=== PATIENT | female | born 1990 | race Caucasian/White ===

== ENCOUNTER 2021-10-18 09:34 | Outpatient (CLI) | payer MEDICAID, SELFPAY ==
[2021-10-18 15:53] LABS: Basophils Absolute Auto 0.04 K/uL (0.00-0.30); Basophils Percent Auto 0.6 % (0.0-3.0); Eosinophils Absolute Auto 0.14 K/uL (0.00-0.50); Eosinophils Percent Auto 2.1 % (0.0-7.0); Hematocrit 43.6 % (33.0-51.0); Hemoglobin* 14.4 gm/dL (12.0-16.0); Lymphocytes Absolute Auto 2.21 K/uL (0.90-2.90); Lymphocytes Percent Auto 32.7 % (20-44); Mean Corpuscular HGB Conc 33 gm/dL (32-36); Mean Corpuscular Hemoglobin 30 pg (26-34); Mean Corpuscular Volume 92 fL (80-100); Monocytes Percent Auto 8.3 % (0.0-11.0); Neutrophils Absolute Auto 3.81 K/uL (1.7-7.0); Neutrophils Percent Auto 56.3 % (42.0-72.0); Platelet Count* 235 K/uL (140-440); RDW Coefficient of Variation % 12.3 % (11.5-15.5); Red Blood Count 4.74 m/uL (4.00-5.20); White Blood Count* 6.76 K/uL (4.50-11.00)
[2021-10-18 15:59] LABS: Albumin* 4.2 g/dL (3.3-5.0)
[2021-10-18 16:00] LABS: Chloride* 104 mmol/L (96-114)
[2021-10-18 16:01] LABS: Potassium* 4.5 mmol/L (3.6-5.1); Sodium* 136 mmol/L (135-149)
[2021-10-18 16:02] LABS: Amylase* 68 U/L (18-89); Bilirubin Total* 0.2 mg/dL (0.1-1.5); Carbon Dioxide* 26 mmol/L (20-32); Creatinine* 0.6 mg/dL (0.5-1.5); Estimated Glomerular Filt Rate 124 ml/min
[2021-10-18 16:03] LABS: Alanine Aminotransferase* 19 U/L (4-35); Alkaline Phosphatase* 62 U/L (40-150); Aspartate Amino Transferase* 21 U/L (12-35); Blood Urea Nitrogen* 18 mg/dL (5-24); Calcium* 9.1 mg/dL (8.4-10.6); Glucose* 95 mg/dL (60-115); Lipase* 79 U/L (23-300)
[2021-10-18 16:12] LABS: Slide Review Reflex No
== END 2021-10-18 09:35 | disposition home or self-care (01) ==
PROVIDERS: PCP Nurse Practitioner Family; Visit Provider Nurse Practitioner Family
DX: R10.11 Right upper quadrant pain (principal)
CPT/HCPCS: 36415; 80053; 82150; 83690; 85025

== ENCOUNTER 2021-11-07 09:27 | Outpatient (CLI) | payer MEDICAID, SELFPAY ==
--- OUTSIDE RECORDS SUMMARY | 2021-11-07 09:30 | XMS_ITS | Encounter Summary ---
:1990 Author Organization [place] Address [address] [place] [address] Care Team Providers Name Role Phone Lindsay Braxton MD Primary Care Provider [phone] Tayla Mondragon RN ANGIOGRAPHY Unavailable Encounter Details Date Type Department Care Team Description 11/10/2017 E-Visit [facility] Lindsay Braxton (Primary Clinic Cullen Aguilar MD Dx) [address] [facility] [address] [place], [place] [address] [phone] Social History Tobacco Use Types Packs/Day Years Used Date Never Smoker Smokeless Tobacco: Never Used Alcohol Use Standard Drinks/Week Comments Yes 0 (1 standard drink = 0.6 oz pure alcoho l) Sex Assigned at Date Recorded Not on file documented as of this encounter Plan of Treatment Not on filedocumented as of this encounter Visit Diagnoses Diagnosis Lightheadedness - Primary Dizziness and giddiness documented in this encounter Care Teams Chemistry Account Manager Relationship Specialty Start Date End Date Lindsay Braxton MD PCP - General Family Practice 02/25/17 [address] [place], [place] [id number] Tayla Mondragon NP PCP - Assigned PCP 03/01/17 02/27/18 [facility] [address] [place] [address] documented as of this encounter
--- OUTSIDE RECORDS SUMMARY | 2021-11-07 09:30 | XMS_ITS | Encounter Summary ---
:1990 Author Organization [place] Address [address] [place] [address] Care Team Providers Name Role Phone Lindsay Braxton MD Primary Care Provider [phone] Tayla Mondragon CUSTODIAL AIDE Unavailable Reason for Visit JOSE Physical Therapy - Closed Specialty Diagnoses / Procedures Referred By Contact Refer red To Contact Diagnoses Bilateral carpal tunnel syndrome Rodrigo Kirby DO [facility] [address] [facility] [address] [place] [address] Referral ID Status Reason Start Date Expiration Date Visits Requ ested Visits Authorized [id number] Closed 10/28/2017 03/29/2018 40 38 Encounter Details Date Type Department Care Team Description 11/27/2017 Therapy Visit [facility] Barbara Love Bilate ral hand pain; Rehabilitation Services OT Bilateral carpal tunnel syndrome [facility] [address] [facility] [address] [address] [place], [place] [address] [address] [place] [address] [phone] Social History Tobacco Use Types Packs/Day Years Used Date Never Smoker Smokeless Tobacco: Never Used Alcohol Use Standard Drinks/Week Comments Yes 0 (1 standard drink = 0.6 oz pure alcoho l) Sex Assigned at Date Recorded Not on file documented as of this encounter Plan of Treatment Not on filedocumented as of this encounter Procedures Procedure Name Priority Date/Time Associated Diagnosis Comme nts ZZC MANUAL THER Routine 11/27/2017 9:12 AM Bilateral phillips d pain TECH,1+REGIONS,EA 15 MIN CDT Bilateral carpal tunnel syndrome ZC NEUROMUSCULAR Routine 11/27/2017 9:12 AM Bilateral h and pain RE-EDUCATION CDT Bilateral carpal tunnel syndrome documented in this encounter Visit Diagnoses Diagnosis Bilateral hand pain Pain in limb Bilateral carpal tunnel syndrome Carpal tunnel syndrome documented in this encounter Care Teams Material Disposition Inspector Relationship Specialty Start Date End Date Lindsay Braxton MD PCP - General Family Practice 02/25/17 [address] [facility] [place] [address] Tayla Mondragon NP PCP - Assigned PCP 03/01/17 02/27/18 [facility] [address] [place] [address] documented as of this encounter
--- OUTSIDE RECORDS SUMMARY | 2021-11-07 09:30 | XMS_ITS | Clinical Summary ---
:1990 Author Organization [place] Address [address] [place] [address] Care Team Providers Name Role Phone Lindsay Braxton MD Primary Care Provider [phone] Allergies No known active allergies Medications Medication Sig Dispensed Refills Start Date End Date Status Multiple Take 1 tablet by 0 Act kota Vitamins-Minerals mouth daily (MULTIVITAMIN PO)Indications: Cat bite of hand, right, initial encounter levonorgestrel 1 each (20 mcg) by 1 each 0 10/01/2016 Active (MIRENA) 20 MCG/24HR Intrauterine route IUDIndications: once for 1 dose Finger injury, right, Placed in 2016 initial encounter vitamin B complex Take 1 tablet by 0 Active with vitamin C mouth daily (STRESS TAB) TABS tablet venlafaxine Take 1 capsule 90 capsule 3 10/06/2017 A ctive (EFFEXOR-XR) 150 MG (150 mg) by mouth 24 hr capsule daily Active Problems Problem Noted Date Cystic acne 01/02/2016 Resolved Problems Problem Noted Date Resolved Date Bilateral carpal tunnel syndrome 11/04/2017 019 Bilateral hand pain 11/04/2017 08/30/2018 Pain of finger of right hand 11/28/2016 01/12/2017 Finger stiffness, right 11/28/2016 01/12/2017 Unspecified injury of right wrist, hand and finger(s), 11/2801/12/2017 subsequent encounter Immunizations Name Administration Dates Next Due TD (ADULT, 7+) 03/15/2015 Family History Relation Status Comments Father Alive Mother Alive Social History Tobacco Use Types Packs/Day Years Used Date Never Smoker Smokeless Tobacco: Never Used Alcohol Use Standard Drinks/Week Comments Yes 0 (1 standard drink = 0.6 oz pure alcoho l) Sex Assigned at Date Recorded Not on file Last Filed Vital Signs Vital Sign Reading Time Taken Comments Blood Pressure 112/72 10/28/2017 9:11 AM CDT Pulse 71 10/06/2017 8:15 AM CDT Temperature 37 ??C (98.6 ??F) 10/06/2017 8:15 AM CDT Respiratory Rate 16 10/06/2017 8:15 AM CDT Oxygen Saturation 97% 10/06/2017 8:15 AM CDT Inhaled Oxygen Concentration - - Weight 77.1 kg (170 lb) 10/28/2017 9:11 AM CDT Height 167.6 cm (5' 6) 10/28/2017 9:11 AM CDT Body Mass Index 27.44 10/28/2017 9:11 AM CDT Plan of Treatment Health Maintenance Due Date Last Done Comments ADVANCE CARE PLANNING 1990 ANNUAL REVIEW OF HM ORDERS 1990 COVID-19 Vaccine (#1) 06/16/1991 HIV SCREENING 2005 HEPATITIS C SCREENING 2008 PREVENTIVE CARE VISIT 01/01/2017 01/02/2016 PAP 10/16/2018 10/17/2015 PHQ-2 (once per calendar 03/30/2021 10/06/2017, year) 02/06/2017, 01/02/2016 INFLUENZA VACCINE (#1) 2021 DTAP/TDAP/TD IMMUNIZATION (2 03/15/2025 03/15/2015, - Td or Tdap) 03/15/2015 HEPATITIS B IMMUNIZATION Aged Out No long er eligible based on patient's age to complete this to pic IPV IMMUNIZATION Aged Out No longer eligi ble based on patient's age to complete this to pic MENINGITIS IMMUNIZATION Aged Out No longe r eligible based on patient's age to complete this to pic Pneumococcal Vaccine: Aged Out No longer eligible based Pediatrics (0 to 5 Years) and on patient's age to At-Risk Patients (6 to 64 comple te this topic Years) Insurance Payer Benefit Plan / Subscriber ID Effective Phone Address T ype Group Dates 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 [id number] 2015-Pre [address] sent [id number] [place] [address] BCBS BCBS OF [place] [id number] 2017-Prese [phone] [address] [place] [id number] [address] [place] [address] [phone] none (Work) [place] [id number] Claudia Benoit Worker's Self 1990 [phone] [address] [phone] [address] [place] 8 (Work) [address] [id number] Worker's Employer 1990 [phone] [address] [phone] J[place]ICE [place]IMA 8 (Work) [phone] Care Teams Manager Solution Relationship Specialty Start Date End Date Lindsay Braxton MD PCP - General Family Practice 02/25/17 [address] [address] [place], [place] [id number]
--- OUTSIDE RECORDS SUMMARY | 2021-11-07 09:30 | XMS_ITS | Encounter Summary ---
:1990 Author Organization [place] Address [address] [place] [address] Care Team Providers Name Role Phone Lindsay Braxton MD Primary Care Provider [phone] Tayla Mondragon DEBONER Unavailable Lindsay Braxton MD Unavailable Lindsay Braxton MD Unavailable Reason for Visit JOSE Physical Therapy - Closed Specialty Diagnoses / Procedures Referred By Contact Refer red To Contact Diagnoses Bilateral carpal tunnel syndrome Rodrigo Kirby DO [facility] [address] [facility] [address] [place] [address] Referral ID Status Reason Start Date Expiration Date Visits Requ ested Visits Authorized [id number] Closed 10/28/2017 03/29/2018 40 38 Encounter Details Date Type Department Care Team Description 12/02/2017 Therapy Visit [facility] Miko, Bilateral carpal tunnel syndrome (Primary Dx); Rehabilitation Services LIBERTY Jones Bilateral hand pain [facility] [place] [id number] [facility] [address] [facility] [address] [place], [place] [address] [address] [phone] Social History Tobacco Use Types Packs/Day Years Used Date Never Smoker Smokeless Tobacco: Never Used Alcohol Use Standard Drinks/Week Comments Yes 0 (1 standard drink = 0.6 oz pure alcoho l) Sex Assigned at Date Recorded Not on file documented as of this encounter Progress Notes Shalini Crouch OTR - 12/02/2017 10:00 AM CDT Discharge Summary - Hand Therapy Patient did not return to therapy. We will assume that patient's goals were met. D/C from hand therapy. documented in this encounter Plan of Treatment Not on filedocumented as of this encounter Procedures Procedure Name Priority Date/Time Associated Diagnosis Comme nts ZZC MANUAL THER Routine 12/02/2017 10:50 AM Bilateral carpal TECH,1+REGIONS,EA 15 MIN CDT tunnel syndrome Bilateral hand pain ZZC NEUROMUSCULAR Routine 12/02/2017 10:50 AM Bilateral carpal RE-EDUCATION CDT tunnel syndrome Bilateral hand pain ZZC THERAPEUTIC EXERCISES Routine 12/02/2017 10:50 AM Bilatera l carpal CDT tunnel syndrome Bilateral hand pain documented in this encounter Visit Diagnoses Diagnosis Bilateral carpal tunnel syndrome - Prima ry Carpal tunnel syndrome Bilateral hand pain Pain in limb documented in this encounter Care Teams Dermatologist Relationship Specialty Start Date End Date Lindsay Braxton MD PCP - General Family Practice 02/25/17 [address] [place] [address] Tayla Mondragon, SAL PCP - Assigned PCP 03/01/17 02/27/18 [facility] [address] [place] [address] Lindsay Braxton MD PCP - Assigned PCP 02/28/18 06/01/18 [address] [place] [address] Lindsay Braxton MD Assigned PCP 02/14/18 10/11/20 [address] [place] [address] documented as of this encounter
--- OUTSIDE RECORDS SUMMARY | 2021-11-07 09:30 | XMS_ITS | Encounter Summary ---
:1990 Author Organization [place] Address [address] [place] [address] Care Team Providers Name Role Phone Lindsay Braxton MD Primary Care Provider [phone] Tayla Mondragon SKY CAP Unavailable Reason for Visit JOSE Physical Therapy - Closed Specialty Diagnoses / Procedures Referred By Contact Refer red To Contact Diagnoses Bilateral carpal tunnel syndrome Rodrigo Kirby DO [facility] [id number] [place] [address] Referral ID Status Reason Start Date Expiration Date Visits Requ ested Visits Authorized [id number] Closed 10/28/2017 03/29/2018 40 38 Encounter Details Date Type Department Care Team Description 11/18/[address] [facility] Miko, Bilateral carpal tunnel syndrome (Primary Dx); Rehabilitation Services LIBERTY Jones Bilateral hand pain [facility] [address] [address] [place] [address] [phone] Social History Tobacco Use Types Packs/Day Years Used Date Never Smoker Smokeless Tobacco: Never Used Alcohol Use Standard Drinks/Week Comments Yes 0 (1 standard drink = 0.6 oz pure alcoho l) Sex Assigned at Date Recorded Not on file documented as of this encounter Progress Notes Shalini Crouch OTR - 11/18/2017 2:00 PM CDT SOAP note objective information for 11/18/2017. Please refer to the daily flowsheet for treatment today, total treatment time and time spent performing 1:1 timed codes.? Special Tests Nerve entrapment: Pain Report: - none + mild ++ moderate +++ severe Date 11/18/2017 Side R L Proximal Terrell Test: Pt Position: Goal Post position; Fist slowly for 2-3 minutes [address] a downward pressure on the scapula Increased Paresthesias No change to paraesthesias Cyriax Release Test Decreased Paresthesias No change to paraesthesias documented in this encounter Plan of Treatment Not on filedocumented as of this encounter Procedures Procedure Name Priority Date/Time Associated Diagnosis Comme nts ZC MANUAL THER Routine 11/18/2017 3:09 PM Bilateral carpal TECH,1+REGIONS,EA 15 MIN CDT tunnel syndrome Bilateral hand pain ZZC NEUROMUSCULAR Routine 11/18/2017 3:09 PM Bilateral carpal RE-EDUCATION CDT tunnel syndrome Bilateral hand pain ZZC THERAPEUTIC EXERCISES Routine 11/18/2017 3:09 PM Bilateral carpal CDT tunnel syndrome Bilateral hand pain documented in this encounter Visit Diagnoses Diagnosis Bilateral carpal tunnel syndrome - Prima ry Carpal tunnel syndrome Bilateral hand pain Pain in limb documented in this encounter Care Teams Pcts Relationship Specialty Start Date End Date Lindsay Braxton MD PCP - General Family Practice 02/25/17 [address] [place] [address] Tayla Mondragon NP PCP - Assigned PCP 03/01/17 02/27/18 [facility] [address] [place] [address] documented as of this encounter
--- OUTSIDE RECORDS SUMMARY | 2021-11-07 09:31 | XMS_ITS | Encounter Summary ---
:1990 Author Organization [place] Address [facility] [place] [address] Care Team Providers Name Role Phone Lindsay Braxton MD Primary Care Provider [phone] Tayla Mondragon COKE DRAWER HAND Unavailable Reason for Visit Reason Comments Elbow right Encounter Details Date Type Department Care Team Description 10/06/2017 Office Visit [facility] Tayla Mondragon, Elbow pain, right (Primary Dx); [facility] COKE DRAWER HAND Cervicalgia [address] [facility] [address] [phone] [place] [address] Social History Tobacco Use Types Packs/Day Years Used Date Never Smoker Smokeless Tobacco: Never Used Alcohol Use Standard Drinks/Week Comments Yes 0 (1 standard drink = 0.6 oz pure alcoho l) Sex Assigned at Date Recorded Not on file documented as of this encounter Last Filed Vital Signs Vital Sign Reading Time Taken Comments Blood Pressure 126/80 10/06/2017 8:15 AM CDT Pulse 71 10/06/2017 8:15 AM CDT Temperature 37 ??C (98.6 ??F) 10/06/2017 8:15 AM CDT Respiratory Rate 16 10/06/2017 8:15 AM CDT Oxygen Saturation 97% 10/06/2017 8:15 AM CDT Inhaled Oxygen Concentration - - Weight 81.2 kg (179 lb) 10/06/2017 8:15 AM CDT Height 167.6 cm (5' 6) 10/06/2017 8:15 AM CDT Body Mass Index 28.89 10/06/2017 8:15 AM CDT documented in this encounter Progress Notes Tayla Mondragon, COKE DRAWER HAND - 10/06/2017 8:15 AM CDT SUBJECTIVE: Claudia Benoit is a 26 year old female who presents to clinic today for the following health issues: Musculoskeletal problem/pain-right elbow ?? Duration: x 2 days ?? Description Location: right elbow ?? Intensity: moderate ?? Accompanying signs and symptoms: up her right arm into her shoulder, some swelling ?? History Previous similar problem: no Previous evaluation: none ?? Precipitating or alleviating factors: Trauma or overuse: YES- pt fell Aggravating factors include: lifting, exercise and overuse ?? Therapies tried and outcome: ice and ibuprofen and Tylenol and SONAL bandage Patient is here with complaints of right elbow pain for the past 2 days. Fell and noticed significant swelling and tenderness and is concerned about possible fracture. 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 Right-handed. Has been using ice and ibuprofen. Complaints of cervical neck pain with bilateral arm numbness that is intermittent. Has had an MRI inthe past which was unremarkable. Numbness is worse when arms are above her head and when sleeping. Prefers to use chiropractic and will be going there later this week. Problem list and histories reviewed & adjusted, as indicated. Additional history: none Patient Active Problem List Diagnosis ??? Cystic acne History reviewed. No pertinent surgical history. Social History Substance Use Topics ??? Smoking status: Never Smoker ??? Smokeless tobacco: Never Used ??? Alcohol use 0.0 oz/week 0 Standard drinks or equivalent per week History reviewed. No pertinent family history. Reviewed and updated as needed this visit by clinical staff Tobacco Allergies Meds Problems Med Hx Surg Hx Fam Hx Soc Hx Reviewed and updated as needed this visit by Provider Allergies Meds Problems Med Hx Surg Hx Fam Hx ROS: Constitutional, HEENT, cardiovascular, pulmonary, gi and gu systems are negative, except as otherwise noted. OBJECTIVE: BP 126/80 (BP Location: Left arm, Patient Position: Chair, Cuff Size: Adult Regular) Pulse 71 Temp 98.6 ??F (37 ??C) (Oral) Resp 16 Ht 5' 6 (1.676 m) Wt 179 lb (81.2 kg) SpO2 97% ? No BMI 28.89 kg/m2 Body mass index is 28.89 kg/(m^2). GENERAL: healthy, alert and no distress MS: Right elbow swelling and slight tenderness. Good rn progressive care strength. Slight bruising noted. SKIN: no suspicious lesions or rashes PSYCH: mentation appears normal, affect normal/bright ASSESSMENT/PLAN: 1. Elbow pain, right Xray is negative for fracture. Encourage patient to continue with icing, rest, ibuprofen. Advised that swelling may persist for up to several weeks. If no improvement may benefit from referral to physical therapy. 2. Cervicalgia Patient will be visiting with the chiropractor later on this week. If symptoms do not improve, referral to orthopedics. Tayla Mondragon NP [facility] documented in this encounter Plan of Treatment Not on filedocumented as of this encounter Visit Diagnoses Diagnosis Elbow pain, right - Primary Pain in joint, upper arm Cervicalgia documented in this encounter Care Teams Health Club Manager Relationship Specialty Start Date End Date Lindsay Braxton MD PCP - General Family Practice 02/25/17 [address] [place] [address] Tayla Mondragon NP PCP - Assigned PCP 03/01/17 02/27/18 [facility] [address] [place] [address] documented as of this encounter
--- OUTSIDE RECORDS SUMMARY | 2021-11-07 09:31 | XMS_ITS | Encounter Summary ---
:1990 Author Organization [place] Address [address] [place] [address]. [place] [address] Care Team Providers Name Role Phone Unavailable Primary Care Provider Unavailable Reason for Visit Reason Comments Musculoskeletal Problem Encounter Details Date Type Department Care Team Description 10/01/[address] [facility] Lindsay Braxton Finger injury, right, Clinic Cullen Aguilar MD initial encounter [address] [facility] [address] [facility] (Primary Dx) [place], [place] [address] [phone] Social History Tobacco Use Types Packs/Day Years Used Date Never Smoker Smokeless Tobacco: Never Used Alcohol Use Standard Drinks/Week Comments Yes 0 (1 standard drink = 0.6 oz pure alcoho l) Sex Assigned at Date Recorded Not on file documented as of this encounter Last Filed Vital Signs Vital Sign Reading Time Taken Comments Blood Pressure 128/82 10/01/2016 9:52 AM CDT Pulse 75 10/01/2016 9:52 AM CDT Temperature 36.7 ??C (98 ??F) 10/01/2016 9:52 AM CDT Respiratory Rate - - Oxygen Saturation - - Inhaled Oxygen Concentration - - Weight 74.4 kg (164 lb) 10/01/2016 9:52 AM CDT Height 168.3 cm (5' 6.25) 10/01/2016 9:52 AM CDT Body Mass Index 26.27 10/01/2016 9:52 AM CDT documented in this encounter Progress Notes Lindsay Braxton MD - 10/01/2016 9:45 AM CDT SUBJECTIVE: Claudia Benoit is a 25 year old female who presents to clinic today for the following health issues: Finger injury ?? Duration: one day ?? Description (location/character/radiation): 5th finger right hand ?? Intensity: 8/10 ?? Accompanying signs and symptoms: swelling ?? History (similar episodes/previous evaluation): None ?? Precipitating or alleviating factors: hurts to move it ?? Therapies tried and outcome: ice and tape Was doing hand stand, fell down. Unsure if she over-extended or jammed. No previous finger injuries. Problem list and histories reviewed & adjusted, [...] as needed this visit by clinical staff Reviewed and updated as needed this visit by Provider ROS: Constitutional, HEENT, cardiovascular, pulmonary, gi and gu systems are negative, except as otherwise noted. OBJECTIVE: BP 128/82 (BP Location: Right arm, Patient Position: Sitting, Cuff Size: Adult Regular) Pulse 75 Temp 98 ??F (36.7 ??C) (Oral) Ht 5' 6.25 (1.683 m) Wt 164 lb (74.4 kg) ? No BMI 26.27 kg/m2 Body mass index is 26.27 kg/(m^2). GENERAL: healthy, alert and no distress MS: swelling of the 5th digit, right hand, no bruising, ttp over the PIP-IPJ, unable to fully flex the digit due to swelling Diagnostic Test Results: Finger XR - Negative for fracture ASSESSMENT/PLAN: 1. Finger injury, right, initial encounter - no fracture, discussed conservative treatment for now, finger splinting, gentle ROM BID, NSAIDs, ice. Call if finger fails to improve in 1 week - XR Finger Right G/E 2 Views; Future Lindsay Braxton MD [facility] documented in this encounter Nursing Notes Vic Ortez, FREDDIE - 10/01/2016 9:45 AM CDT Chief Complaint Patient presents with ??? Musculoskeletal Problem Initial BP 128/82 (BP Location: Right arm, Patient Position: Sitting, Cuff Size: Adult Regular) Pulse 75 Temp 98 ??F (36.7 ??C) (Oral) Ht 5' 6.25 (1.683 m) Wt 164 lb (74.4 kg) ?No BMI 26.27 kg/m2 Estimated body mass index is 26.27 kg/(m^2) as calculated from the following: Height as of this encounter: 5' 6.25 (1.683 m). Weight as of this encounter: 164 lb (74.4 kg). Medication Reconciliation: maisha Ortez CMA documented in this encounter Plan of Treatment Not on filedocumented as of this encounter Results XR Finger Right G/E 2 Views (10/01/2016 10:21 AM CDT) Anatomical Region Laterality Modality Right Hand Right Computed Radiography Specimen (Source) Anatomical Location Collection Method / Collectio n Time Received Time / Laterality Volume Impressions 10/01/2016 12:07 PM CDT IMPRESSION: ??3 views of the little finger. Negative. ?? LAURENCE TRAN MD Narrative 10/01/2016 12:07 PM CDT XR FINGER RT G/E 2 VW ??10/01/2016 10:21 AM HISTORY: ??Unspecified injury of right w rist, hand and finger(s), initial encounter COMPARISON: ??None. Procedure Note Laurence Tran MD - 7 XR FINGER RT G/E 2 VW 10/01/2016 10:21 AM HISTORY: Unspecified injury of right wri st, hand and finger(s), initial encounter COMPARISON: None. IMPRESSION: 3 views of the little finger . Negative. LAURENCE TRAN MD Lindsay Braxton MD IMG DIAGNOSTIC IMAGING ORDER VELMA documented in this encounter Visit Diagnoses Diagnosis Finger injury, right, initial encounter - Primary Finger injury, right, initial encounter documented in this encounter
--- OUTSIDE RECORDS SUMMARY | 2021-11-07 09:31 | XMS_ITS | Encounter Summary ---
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 Reason for Visit Reason Comments Ankle Pain Encounter Details Date Type Department Care Team Description 08/29/2017 Emergency [facility] Darwin Chan MD Acute left ankle pain [facility] Emergency Dep t [facility] [address] [place], [place] [address] [id number] [place] [address] [place] [address] (Wo rk) Social History Tobacco Use Types Packs/Day Years Used Date Never Smoker Smokeless Tobacco: Never Used Alcohol Use Standard Drinks/Week Comments Yes 0 (1 standard drink = 0.6 oz pure alcoho l) Sex Assigned at Date Recorded Not on file documented as of this encounter Last Filed Vital Signs Vital Sign Reading Time Taken Comments Blood Pressure 129/91 08/29/2017 12:10 PM CDT Pulse 70 08/29/2017 12:10 PM CDT Temperature 35.9 ??C (96.6 ??F) 08/29/2017 12:10 PM CDT Respiratory Rate 18 08/29/2017 12:10 PM CDT Oxygen Saturation 99% 08/29/2017 12:10 PM CDT Inhaled Oxygen Concentration - - Weight 79.4 kg (175 lb) 08/29/2017 12:10 PM CDT Height 167.6 cm (5' 6) 08/29/2017 12:10 PM CDT Body Mass Index 28.25 08/29/2017 12:10 PM CDT documented in this encounter Medications at Time of Discharge Medication Sig Dispensed Refills Start Date End Date levonorgestrel (MIRENA) 1 each (20 mcg) by 1 each 0 07/2016 20 MCG/24HR Intrauterine route IUDIndications: Finger once for 1 dose injury, right, initial Placed in 2016 encounter Multiple Take 1 tablet by 0 Vitamins-Minerals mouth daily (MULTIVITAMIN PO)Indications: Cat bite of hand, right, initial encounter vitamin B complex with Take 1 tablet by 0 vitamin C (STRESS TAB) mouth daily TABS tablet albuterol (PROAIR HFA) Inhale 2 puffs into 1 Inhaler 0 03/3110/06/2017 108 (90 BASE) MCG/ACT the lungs every 4 Inhaler hours as needed for shortness of breath / dyspnea order for Wrist brace with 2 Package 0 02/06/2017 10/07/19 18 DMEIndications: thumb Bilateral carpal tunnel syndrome sertraline (ZOLOFT) 100 TAKE 2 TABLETS BY 1 01/2810/06/2017 MG tablet MOUTH ONCE DAILY XIIDRA 5 % SOLN INSTILL 1 DROP IN 5 01/28/2017 BOTH EYES TWICE DAILY documented as of this encounter ED Notes Corina Ontiveros RN - 08/29/2017 12:12 PM CDT Pt presents with having a hx of left ankle trauma in 2006 and had hardware placed. Today pt was walking and experienced sudden left lateral ankle pain. Pt noted a tiny red spot and skin seemed to be retracting inward. Pt is A&O, ABC's intact. Germain Chan MD - 08/29/2017 12:04 PM CDT History Chief Complaint: Ankle pain HPI Claudia Benoit is a 26 year old female with a history of left ankle surgery who presents with ankle pain. The patient reports that while walking at work this morning, she felt a sudden pain in her left lateral ankle. She describes that the skin feels like it is stuck on the hardware that was placed when she had surgery, and she cannot move the ankle. She denies having any recent ankle injury. Allergies: No known drug allergies Medications: Albuterol Mirena Zoloft Xiidra Past Medical History: The patient does not have any past pertinent medical history. Past Surgical History: Left ankle surgery Family History: History reviewed. No pertinent family history. Social History: Smoking status: Never smoker Alcohol use: No Marital Status: Single [1] Review of Systems Musculoskeletal: Positive for arthralgias (Left ankle). All other systems reviewed and are negative. Physical Exam Patient Vitals for the past 24 hrs: BP Temp Temp src Pulse Resp SpO2 Height Weight 08/29/17 1210 (!) 129/91 96.6 ??F (35.9 ??C) Oral 70 18 99 % 1.676 m (5' 6) 79.4 kg (175 lb) Physical Exam Vital signs and nursing notes reviewed. Constitutional: laying on gurney appears comfortable HENT: No evidence of facial or head injury. Eyes: Conjunctivae are normal bilaterally. Pupils equal Neck: normal range of motion Cardiovascular: Normal rate. Pulmonary/Chest: No respiratory distress. Musculoskeletal: Some limitation due to pain with dorsiflexion and plantar flexion ankle because itpulls on the skin and causes pain, but there is no joint swelling or other concerning findings. Neurological: Alert and oriented. No focal weakness Skin: Area of puckering in the skin near her discomfort at the left lateral malleolus. No overlying erythema, redness, or swelling. Skin is warm and dry. No rash noted. Psych: normal affect Vital signs and nursing notes reviewed. Emergency Department Course Imaging: Radiographic findings were communicated with the patient who voiced understanding of the findings. XR Ankle Left G/E 3 Views: No evidence for recent fracture, dislocation or significant degenerative change of the left ankle . As read by Radiology. Interventions: 1% lidocaine with epinephrine injection Emergency Department Course: Past medical records, nursing notes, and vitals reviewed. 1215: I performed an exam of the patient and obtained history, as documented above. The patient was sent for a left ankle x-ray while in the emergency department, findings above. 1341: I rechecked the patient. Explained findings to the patient. I anesthetized the area and pulledthe trapped skin out. No puckering visible. Findings and plan explained to the patient. Patient discharged home with instructions regarding supportive care, medications, and reasons to return. The importance of close follow-up was reviewed. Impression & Plan Medical Decision Making: Claudia Benoit is a 26 year old female who presents with left lateral ankle pain. Patient noted that her skin is puckering over the outer aspect of her ankle and it feels like something is trapped under the skin and her hardware. I did obtain an x-ray, and the hardware appeared to be in good position. I agreed that it seemed like she had some soft tissue that was trapped somewhere near her surgical hardware. I anesthetized the area with local lidocaine with epi. I was able to pull and manipulate the skin when it popped and skin released with the skin puckering no longer visible. I discussed with her about her follow up with orthopedics as it is unclear if this is going to continue to be happening, and if she is having continued problems with the hardware she may need it removed. I discussed thiswith her and she will follow up with as an outpatient and was discharged in good condition. Diagnosis: ICD-10-CM 1. Acute left ankle pain M25.572 overlying skin entraped in surgical hardware Disposition: discharged to home Jamil Shani 08/29/2017 [facility] EM[facility]GENCY [facility] I, Jamil Mcleod, am serving as a scribe at 12:15 PM on 08/29/2017 to document services personally performed by Germain Chan MD based on my observations and the provider's statements to me. Germain Chan MD 08/29/17 1446 documented in this encounter Plan of Treatment Not on filedocumented as of this encounter Procedures Procedure Name Priority Date/Time Associated Diagnosis Comme nts XR ANKLE LEFT G/E 3 STAT 08/29/2017 12:35 PM R esults for this VIEWS CDT procedure are i n the results section. documented in this encounter Results XR Ankle Left G/E 3 Views (08/29/2017 12:35 PM CDT) Anatomical Region Laterality Modality Leg, Ankle, Foot Left Digital Radiography Specimen (Source) Anatomical Location Collection Method / Collectio n Time Received Time / Laterality Volume Impressions 08/29/2017 1:11 PM CDT IMPRESSION: No evidence for recent fracture, dislocation or significant degenerative change of the l eft ankle . DEENA THOMPSON MD Narrative 08/29/2017 1:11 PM CDT LEFT ANKLE THREE OR MORE VIEWS ??08/29/2017 12:35 PM COMPARISON: None. HISTORY: Evaluate hardware position. FINDINGS: There are ORIF changes to the distal left fibula consisting of a lateral sideplate and multiple scre ws. There is a well-corticated bony fragment adjacent to the distal tip of the medial malleolus that may represent an ununited avulsion fract ure. The visualized bones and joint spaces are otherwise within normal limits. Procedure Note Deena Thompson MD - 08/29/2017Forma tting of this note might be different from the original. LEFT ANKLE THREE OR MORE VIEWS 08/29/2017 12:35 PM COMPARISON: None. HISTORY: Evaluate hardware position. FINDINGS: There are ORIF changes to the distal left fibula consisting of a lateral sideplate and multiple scre ws. There is a well-corticated bony fragment adjacent to the distal tip of the medial malleolus that may represent an ununited avulsion fract ure. The visualized bones and joint spaces are otherwise within normal limits. IMPRESSION: No evidence for recent fract ure, dislocation or significant degenerative change of the l eft ankle . DEENA THOMPSON MD Germain Chan MD IMG DIAGNOSTIC IMAGING ORDER VELMA documented in this encounter Visit Diagnoses Diagnosis Acute left ankle pain documented in this encounter Active and Recently Administered Medications Care Teams [employer] Supervisor Relationship Specialty Start Date End Date Lindsay Braxton MD PCP - General Family Practice 02/25/17 [address] [place] [address] Tayla Mondragon NP PCP - Assigned PCP 03/01/17 02/27/18 [facility] [address] [place] [address] documented as of this encounter
--- OUTSIDE RECORDS SUMMARY | 2021-11-07 09:31 | XMS_ITS | Encounter Summary ---
:1990 Author Organization [place] Address [address] [place] [address] Care Team Providers Name Role Phone Unavailable Primary Care Provider Unavailable Reason for Visit JOSE Occupational Therapy (Routine) - Closed Specialty Diagnoses / Procedures Referred By Contact Refer red To Contact Occupational Therapy Diagnoses >4, Hand injury, right, subsequent encounter / Tayla Mondragon NP @ [facility] Tayla Mondragon NP [facility] Procedures HAND [facility] Therapy - [place] [address] [address] [place] [address] [address] [place] [address] Phone: Fax: Referral ID Status Reason Start Date Expiration Date Visits V isits Requested Authorized JOSE/HP/OT/HAND Closed 11/25/2016 03/29/2017 20 20 Encounter Details Date Type Department Care Team Description 11/25/2016 Therapy Visit [facility] Barbara Love, Unspec ified injury of right wrist, hand and finger(s), subsequent encounter (Primary Dx); Rehabilitation Services OT Pain of finger of right hand; [facility] [address] Arlen jaquez stiffness, [facility] [address] [address] [place], [place] [address] [address] [place], [place] [id number] Social History Tobacco Use Types Packs/Day Years Used Date Never Smoker Smokeless Tobacco: Never Used Alcohol Use Standard Drinks/Week Comments Yes 0 (1 standard drink = 0.6 oz pure alcoho l) Sex Assigned at Date Recorded Not on file documented as of this encounter Progress Notes rTi Loveh - 11/25/2016 2:30 PM CDT Hand Therapy Initial Evaluation Current Date: 11/25/2016 Subjective: Claudia Benoit is a 25 year old right hand dominant female. Diagnosis: R hand injury (small finger) DOI: 09/30/16 Patient reports symptoms of pain, stiffness/loss of motion, weakness/loss of strength and edemaof the right small finger which occurred due to falling doing handstands. Since onset symptoms are unchanged for last 1.5 mos. Special tests:?? x-ray: clear.?? Previous treatment: splint for 2-2.5 weeks, ROM2x/day (flexion, abd), ice.??General health as reported by patient is excellent.?? Pertinent medicalhistory includes: history of fractures, depression , implanted device.?? Medical allergies: none. Surgical history: orthopedic: L fracture repair in 2006.?? Medication history: tryptophan, magnesium, daily multivitamin, melatonin. 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 no limitations Barriers include:none Mobility: No difficulty Transportation: drives Leisure activities/hobbies: walking, gym 6 days/week (boot camp), horseback riding (care of horse and goats), running Upper Extremity Functional Index Score: SCORE: Column Totals: /80: 41 (A lower score indicates greater disability.) O: Pain Level Report: On scale 0-10/10 Date 11/25/2016 Side R Overall 6-8 At Rest 0 With Activity 8 Primary Report: location and description Date 11/25/2016 Side R Location PIP joint and P2 Radiation none Pain Quality Shooting and throbbing (2 days only), dull and achy, occasionally sharp Frequency Intermittent Duration Morning, dependent on use Exacerbated by Gripping, bumping it, writing, pulling open boxes at work, WB, pull ups, dishes Relieved by Nothing Progression since onset Unchanged for last 1.5 mos Sensation: None currently per pt report Edema: Circumference (measured in cm) Small Date 11/25/2016 11/25/2016 Side R L P1 4.9 4.5 IP 5.0 4.6 P2 4.3 4.0 AROM of Fingers AROM (PROM): Small Range of Motion Date 11/25/2016 Side R MP ext -30 MP flex 95 PIP ext -25 PIP flex 84 DIP ext -3 DIP flex 51 LOYA 172 STRENGTH: (Measured in pounds, pain scale 0-10/10) Sprayer Operator Date 11/25/2016 Trials Left Right Left Right Left Right Left Right Left Right Left Right 1 46 31 2 3 Avg Pain Full passive PIP extension, but painful in PIP joint Intrinsic tightness present ULTT ulnar nerve bias ~25% of glide Assessment/Plan: Patient presents with symptoms consistent with diagnosis of right hand injury, with conservative intervention. Patient's limitations or Problem List includes: Pain, Decreased ROM/motion, Increased edema, Weakness, Decreased computer installation engineer and Decreased pinch of the right small finger which interferes with the patient's ability to perform Self Care Tasks (dressing, eating, bathing), Work Tasks, Sleep Patterns, Recreational Activities, Attending Physician and Driving as compared to previous level of function. Rehab Potential: Excellent - Return to full activity, no limitations Patient will benefit from skilled Occupational Therapy to increase ROM, flexibility, computer installation engineer strength, pinch strength and coordination and decrease pain and edema to return to previous activity level and resume normal daily tasks and to reach their rehab potential. Barriers to Learning: No barrier Communication Issues: Patient appears to be able to clearly communicate and understand verbal and written communication and follow directions correctly. Assessment of Occupational Performance: 5 or more Performance Deficits Identified Performance Deficits: bathing/showering, dressing, home establishment and management, meal preparation and cleanup, sleep, work and leisure activities Clinical Decision Making (Complexity): Low complexity Treatment Explanation: The following has been discussed with the patient: RX ordered/plan of care Anticipated outcomes Possible risks and side effects P: Frequency: 1 X week, once daily Duration: for 6 weeks Treatment Plan: Modalities: US and Paraffin Therapeutic Exercise: AROM, AAROM, PROM, Tendon Gliding, Blocking, Reverse Blocking, Place and Hold,Extensor Tracking, Isotonics and Isometrics Neuromuscular re-education: Nerve Gliding, Coordination/Dexterity, Sensory re- education and Desensitization Manual Techniques: Coordination/Dexterity, Joint mobilization, Myofascial release and Manual edema mobilization Orthotic Fabrication: Static orthosis Discharge Plan: Achieve all LTG. Independent in home treatment program. Reach maximal therapeutic benefit. Home Exercise Program: Tendon glides Extensor tracking Blocking MFR to intrinsics Next Visit: PROM Joint mobs MFR Splint? documented in this encounter Plan of Treatment Not on filedocumented as of this encounter Procedures Procedure Name Priority Date/Time Associated Diagnosis Comme nts [facility] MANUAL THER Routine 11/28/2016 8:48 AM Pain of finger of TECH,1+REGIONS,EA 15 MIN CDT right h and Finger stiffness, right Unspecified injury of right wrist, hand and finger(s), subsequent encounter [facility] THERAPEUTIC Routine 11/28/2016 8:48 AM Pain of finger of EXERCISES CDT right hand Finger stiffness, right Unspecified injury of right wrist, hand and finger(s), subsequent encounter OT EVAL, LOW Routine 11/28/2016 8:48 AM Pain of finger of COMPLEXITY CDT right hand Finger stiffness, right Unspecified injury of right wrist, hand and finger(s), subsequent encounter documented in this encounter Visit Diagnoses Diagnosis Unspecified injury of right wrist, hand and finger(s), subsequent encounter - Primary Pain of finger of right hand Pain in limb Finger stiffness, right documented in this encounter
--- OUTSIDE RECORDS SUMMARY | 2021-11-07 09:31 | XMS_ITS | Encounter Summary ---
:1990 Author Organization [facility] Address [address] [place] [address] Care Team Providers Name Role Phone No Ref-Primary, Physician Primary Care Provider [phone] Reason for Visit Reason Onset Date Comments Hand Pain 02/06/2017 Encounter Details Date Type Department Care Team Description 02/06/2017 Telephone [facility] None Hand Pain [address] [place] [address] Social History Tobacco Use Types Packs/Day Years Used Date Never Smoker Smokeless Tobacco: Never Used Alcohol Use Standard Drinks/Week Comments Yes 0 (1 standard drink = 0.6 oz pure alcoho l) Sex Assigned at Date Recorded Not on file documented as of this encounter Miscellaneous Notes Telephone Encounter - Clotilde Licea RN - 02/06/2017 7:12 AM CST Pt calling c/o my hands feel numb and tingly She has had issue with her back for the last several weeks. I was in a boot camp work out and movedwrong and hurt something on the left side under my shoulder She is seeing chiropractor for this. Has noted for the last couple night both hands to the elbow feel numb, weak and tinging This will wake her from sleep and is worse in am. Clears through out the day. 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 Advised to be seen in clinic for this. Appt with Dr. SALTER at today at 8 am. Pt expressed understanding and acceptance of the plan. Pt had no further questions at this time. Advised can call back to clinic at any time with concerns. Clotilde Page, RN EDGE STITCHER HAND documented in this encounter Plan of Treatment Not on filedocumented as of this encounter Visit Diagnoses Not on filedocumented in this encounter Care Teams Freezing Machine Operator Relationship Specialty Start Date End Date No Ref-Primary, Physician PCP - General 02/06/17 02/24/17 documented as of this encounter
--- OUTSIDE RECORDS SUMMARY | 2021-11-07 09:31 | XMS_ITS | Encounter Summary ---
:1990 Author Organization [facility] Address [address] [place] [address] Care Team Providers Name Role Phone Unavailable Primary Care Provider Unavailable Reason for Visit Reason Comments Cat Bite c/o cat bite on right 5th fi nger during work this morning. Cat is up to date on vaccination's. Work Comp Encounter Details Date Type Department Care Team Description 03/15/2015 Office Visit [facility] Hamilton Cfofey, Cat bi te of hand, Urgent Care Pablo SCOTT right, initial [address] encounter (Primary Dx) [place] [address] [phone] Social History Tobacco Use Types Packs/Day Years Used Date Never Smoker Smokeless Tobacco: Never Used Alcohol Use Standard Drinks/Week Comments Not Asked 0 (1 standard drink = 0.6 oz pure alcoho l) Sex Assigned at Date Recorded Not on file documented as of this encounter Last Filed Vital Signs Vital Sign Reading Time Taken Comments Blood Pressure 130/76 03/15/2015 12:13 PM BILINGUAL SALES CONSULTANT Pulse 57 03/15/2015 12:13 PM BILINGUAL SALES CONSULTANT Temperature 36.7 ??C (98.1 ??F) 03/15/2015 12:13 PM BILINGUAL SALES CONSULTANT Respiratory Rate - - Oxygen Saturation - - Inhaled Oxygen Concentration - - Weight 76.7 kg (169 lb) 03/15/2015 12:13 PM BILINGUAL SALES CONSULTANT Height - - Body Mass Index 27.28 04/20/2014 2:51 PM BILINGUAL SALES CONSULTANT documented in this encounter Progress Notes Hamilton Coffey PA-C - 03/15/2015 12:39 PM CST SUBJECTIVE: Claudia Benoit is a 24 year old female who presents with a chief complaint of an animal bite on the right hand. She was bitten by a cat today. Cicumstances of bite: unprovoked attack. Severity: mild. Animal's immunizations up to date Associated symptoms: immediate pain Td vaccination indicated and given today No past medical history on file. ALLERGIES No Known Allergies History Substance Use Topics ??? Smoking status: Never Smoker ??? Smokeless tobacco: Never Used ??? Alcohol Use: Not on file ROS: CONSTITUTIONAL:NEGATIVE for fever, chills, change in weight INTEGUMENTARY/SKIN: POSITIVE for puncture wound in skin MUSCULOSKELETAL: Positive for hand tenderness NEURO: NEGATIVE for weakness, dizziness or paresthesias OBJECTIVE: BP 130/76 mmHg Pulse 57 Temp(Src) 98.1 ??F (36.7 ??C) (Oral) Wt 169 lb (76.658 kg) GENERAL: healthy, alert no acute distress SKIN: puncture wound of hand MS:extremities normal- no gross deformities noted, FROM noted in all extremities NEURO: Normal strength and tone, sensory exam grossly normal, normal speech and mentation LYMPHATICS: negative for lymphatic tenderness ASSESSMENT/PLAN: ICD-10-CM 1. Cat bite of hand, right, initial encounter S61.451A Multiple Vitamins- Minerals (MULTIVITAMIN PO) Winn-3 Fatty Acids (FISH OIL PO) amoxicillin-clavulanate (AUGMENTIN) 875-125 MG per tablet TD (PRESERVE FREE, AGE 7+) [16450.002] Td updated Work comp letter written for patient NGUAL SALES CONSULTANT documented in this encounter Nursing Notes Jose Malik MA - 03/15/2015 12:48 PM CST Screening Questionnaire for Adult Immunization Are you sick today? No Do you have allergies to medications, food, a vaccine component or latex? No Have you ever had a serious reaction after receiving a vaccination? No Do you have a long-term health problem with heart disease, lung disease, asthma, kidney disease, metabolic disease (e.g. diabetes), anemia, or other blood disorder? No Do you have cancer, leukemia, HIV/AIDS, or any other immune system problem? No In the past 3 months, have you taken medications that weaken your immune system, such as cortisone, prednisone, other steroids, or anticancer drugs, or have you had radiation treatments? No Have you had a seizure, or a brain or other nervous system problem? No During the past year, have you received a transfusion of blood or blood products, or been given immune (gamma) globulin or antiviral drug? No For women: Are you or is there a chance you could become during the next month? No Have you received any vaccinations in the past 4 weeks? No Immunization questionnaire answers were all negative. MNVFC doesn't apply on this patient Per orders of Hamilton Coffey, injection of TD given by Jose Malik. Patient instructed to remain in clinic for 20 minutes afterwards, and to report any adverse reaction to me immediately. Screening performed by Jose Malik on 03/15/2015 at 12:48 PM. NGUAL SALES CONSULTANT Jose Malik MA - 03/15/2015 12:14 PM CST Chief Complaint Patient presents with ??? Cat Bite c/o cat bite on right 5th finger during work this morning. Cat is up to date on vaccination's. ??? Work Comp Initial BP 130/76 mmHg Pulse 57 Temp(Src) 98.1 ??F (36.7 ??C) (Oral) Wt 169 lb (76.658 kg) Estimated body mass index is 27.29 kg/(m^2) as calculated from the following: Height as of 04/20/14: 5' 6 (1.676 m). Weight as of this encounter: 169 lb (76.658 kg).. bp completed using cuff size regular A. ANNY Malik NGUAL SALES CONSULTANT documented in this encounter Plan of Treatment Not on filedocumented as of this encounter Visit Diagnoses Diagnosis Cat bite of hand, right, initial encount er - Primary documented in this encounter
--- OUTSIDE RECORDS SUMMARY | 2021-11-07 09:31 | XMS_ITS | Encounter Summary ---
:1990 Author Organization [facility] Address [address] [place] [address]. [place] [address] Care Team Providers Name Role Phone Unavailable Primary Care Provider Unavailable Reason for Referral [facility] - Closed Specialty Diagnoses / Procedures Referred By Contact Refer red To Contact Diagnoses Hand injury, right, subsequent encounter Tayla Mondragon, SAP ARCHITECT [facility] [address] [place] [address] [place] [address] Phone: [phone] Referral ID Status Reason Start Date Expiration Date Visits Requ ested Visits Authorized [id number] Closed 11/15/2016 11/15/2017 1 1 Reason for Visit Reason Comments Finger pinky finger rt hand x 3-4 weeks Encounter Details Date Type Department Care Team Description 11/15/2016 Office Visit [facility] Tayla Mondragon, Hand i njury, right, Clinic [place] SAP ARCHITECT subsequent encounter [id number] [facility] (Primary Dx) [facility] [id number] [phone] [place], [place] [address] Social History Tobacco Use Types Packs/Day Years Used Date Never Smoker Smokeless Tobacco: Never Used Alcohol Use Standard Drinks/Week Comments Yes 0 (1 standard drink = 0.6 oz pure alcoho l) Sex Assigned at Date Recorded Not on file documented as of this encounter Last Filed Vital Signs Vital Sign Reading Time Taken Comments Blood Pressure 124/76 11/15/2016 10:10 AM CDT Pulse 61 11/15/2016 10:10 AM CDT Temperature 37 ??C (98.6 ??F) 11/15/2016 10:10 AM CDT Respiratory Rate 14 11/15/2016 10:10 AM CDT Oxygen Saturation - - Inhaled Oxygen Concentration - - Weight 70.9 kg (156 lb 6.4 oz) 11/15/2016 10:10 AM CDT Height 168.3 cm (5' 6.25) 11/15/2016 10:10 AM CDT Body Mass Index 25.05 11/15/2016 10:10 AM CDT documented in this encounter Progress Notes Tayla Mondragon NP - 11/15/2016 10:00 AM CDT SUBJECTIVE: Claudia Benoit is a 25 year old female who presents to clinic today for the following health issues: Here for right pinky finger pain for the past six weeks. Imaging completed four weeks ago was negative for fracture. Wore the finger splint up until last week and has worsening swelling. Flexion is painful. Active working out and is concerned lack of mobility in finger is interfering with her active life. Problem list and histories reviewed & adjusted, [...] updated as needed this visit by clinical staffTobacco Allergies Meds Problems Med Hx Surg Hx Fam Hx Soc Hx Reviewed and updated as needed this visit by Provider Allergies Meds Problems Med Hx Surg Hx Fam Hx ROS: Constitutional, HEENT, cardiovascular, pulmonary, gi and gu systems are negative, except as otherwise noted. OBJECTIVE: BP 124/76 (BP Location: Right arm, Patient Position: Chair, Cuff Size: Adult Regular) Pulse 61 Temp 98.6 ??F (37 ??C) (Oral) Resp 14 Ht 5' 6.25 (1.683 m) Wt 156 lb 6.4 oz (70.9 kg) ? No BMI 25.05 kg/m2 Body mass index is 25.05 kg/(m^2). GENERAL: healthy, alert and no distress MS: swelling of the proximal joint of right 5th finger. Pain with flexion but able to do. ASSESSMENT/PLAN: 1. Hand injury, right, subsequent encounter [facility]. - [facility] PT, HAND, AND CHIROPRACTIC REFERRAL Tayla Mondragon NP [facility] documented in this encounter Nursing Notes Sara Paulino MA - 11/15/2016 10:00 AM CDT Chief Complaint Patient presents with ??? Finger pinky finger rt hand x 3-4 weeks Initial BP 124/76 (BP Location: Right arm, Patient Position: Chair, Cuff Size: Adult Regular) Pulse 61 Temp 98.6 ??F (37 ??C) (Oral) Resp 14 Ht 5' 6.25 (1.683 m) Wt 156 lb 6.4 oz (70.9 kg) ? No BMI 25.05 kg/m2 Estimated body mass index is 25.05 kg/(m^2) as calculated from the following: Height as of this encounter: 5' 6.25 (1.683 m). Weight as of this encounter: 156 lb 6.4 oz (70.9 kg). Medication Reconciliation: complete rt arm Sara Paulino MA documented in this encounter Plan of Treatment Scheduled Referrals Name Type Priority Associated Diagnoses Order S chedule JO[facility] PT, HAND, AND Referral Routine Hand injury, right, Ord ered: 11/15/2016 CHIROPRACTIC REFERRAL subsequent encounte r documented as of this encounter Visit Diagnoses Diagnosis Hand injury, right, subsequent encounter - Primary documented in this encounter
--- OUTSIDE RECORDS SUMMARY | 2021-11-07 09:31 | XMS_ITS | Encounter Summary ---
:1990 Author Organization [facility] Address [address] [place] [id number] Care Team Providers Name Role Phone Lindsay Braxton MD Primary Care Provider [phone] Tayla Mondragon PROJECT BUYER Unavailable Reason for Visit Reason Comments Shortness of Breath Encounter Details Date Type Department Care Team Description 04/26/2017 - [facility] Eneida Rivera MD Upper respiratory tract infection, unspe cified type; 04/27/2017 [facility] Thr oat pain Dept [facility] [address] [facility] [address] [place], [place] [phone] Social History Tobacco Use Types Packs/Day Years Used Date Never Smoker Smokeless Tobacco: Never Used Alcohol Use Standard Drinks/Week Comments Yes 0 (1 standard drink = 0.6 oz pure alcoho l) Sex Assigned at Date Recorded Not on file documented as of this encounter Last Filed Vital Signs Vital Sign Reading Time Taken Comments Blood Pressure 129/76 04/27/2017 12:18 AM HIRED HELP Pulse 80 04/26/2017 11:12 PM HIRED HELP Temperature 36.8 ??C (98.3 ??F) 04/26/2017 11:16 PM HIRED HELP Respiratory Rate 18 04/26/2017 11:12 PM HIRED HELP Oxygen Saturation 100% 04/26/2017 11:31 PM HIRED HELP Inhaled Oxygen Concentration - - Weight - - Height - - Body Mass Index - - documented in this encounter Discharge Instructions Discharge InstructionsEneida Rivera MD - 04/27/2017 12:04 AM CST Images from the original note were not included. Get extra rest and drink plenty of fluids. You may take acetaminophen or ibuprofen according to package directions, with food, for fevers/aches. See your primary care clinic for followup within the next 5-7 days or sooner if symptoms are not improving. If you have any worsening/severe symptoms seek medical care right away. Adult Self-Care for Colds Colds are caused by viruses. They can't be cured with antibiotics. However, you can ease symptoms and support your body's efforts to heal itself. No matter which symptoms you have, be sure to: ?? Drink plenty of fluids (water or clear soup) ?? Stop smoking and drinking alcohol ?? Get plenty of rest Understand a fever ?? Take your temperature several times a day. If your fever is??100.4??F??(38.0??C) for more than a day, call your healthcare provider. ?? Relax, lie down. Go to bed if you want. Just get off your feet and rest. Also, drink plenty of fluids to avoid dehydration. ?? Take acetaminophen or a nonsteroidal anti-inflammatory agent (NSAID), such as ibuprofen. Treat a troubled nose kindly ?? Breathe steam or heated humidified air to open blocked nasal passages. rehabilitation medicine physician a hot shower or use a vaporizer. Be careful not to get burned by the steam. ?? Saline nasal sprays and decongestant tablets help open a stuffy nose. Antihistamines can also help, but they can cause side effects such as drowsiness and drying of the eyes, nose, and mouth. Soothe a sore throat and cough ?? Gargle every??2??hours with??1/4??teaspoon of salt dissolved in??1/2 cup of warm water. Suck on throat lozenges and cough drops to moisten your throat. ?? Cough medicines are available but it is unclear how well they actually work. ?? Take acetaminophen or an NSAID, such as ibuprofen, to ease throat pain Ease digestive problems ?? Put fluids back into your body. Take frequent sips of clear liquids such as water or broth. Avoiddrinks that have a lot of sugar in them, such as juices and sodas. These can make diarrhea worse. Older children and adults can drink sports drinks. ?? As your appetite returns, you can resume your normal diet. Ask your healthcare provider if there are any foods you should avoid. When to seek medical care When you first notice symptoms, ask your healthcare provider if antiviral medicines are appropriate.??Antibiotics should not be taken for colds or flu. Also, call your healthcare provider if you have any of the following symptoms or if you aren't feeling better after 7 days: ?? Shortness of breath ?? Pain or pressure in the chest or belly (abdomen) ?? Worsening symptoms, especially after a period of improvement ?? Fever of??100.4??F?? (38.0??C) or higher, or fever that doesn't go down with medicine ?? Sudden dizziness or confusion ?? Severe or continued vomiting ?? Signs of dehydration, including extreme thirst, dark urine, infrequent urination, dry mouth ?? Spotted, red, or very sore throat Date Last Reviewed: 02/28/2016 ?? [id number] [employer]. [address] [place] [address]. All rights reserved. This information is not intended as a substitute for professional medical care. Always follow your healthcare professional's instructions. When You Have a Sore Throat A sore throat can be painful. There are many reasons why you may have a sore throat. Your healthcareprovider will work with you to find the cause of your sore throat. He or she will also find the besttreatment for you. What causes a sore throat? Sore throats can be caused or worsened by: ?? Cold or flu viruses ?? Bacteria ?? Irritants such as tobacco smoke or air pollution ?? Acid reflux A healthy throat The tonsils are on the sides of the throat near the base of the tongue. They collect viruses and bacteria and help fight infection. The throat (pharynx) is the passage for air. Mucus from the nasal cavity also moves down the passage. An inflamed throat The tonsils and pharynx can become inflamed due to a cold or flu virus. Postnasal drip (excess mucusdraining from the nasal cavity) can irritate the throat. It can also make the throat or tonsils morelikely to be infected by bacteria. Severe, untreated tonsillitis in children or adults can cause a pocket of pus (abscess) to form near the tonsil. Your evaluation A medical evaluation can help find the cause of your sore throat. It can also help your healthcare provider??choose the best treatment for you. The evaluation may include a health history, physical exam, and diagnostic tests. Health history Your healthcare provider may ask you the following: ?? How long has the sore throat lasted and how have you been treating it? ?? Do you have any other symptoms, such as body aches, fever, or cough? ?? Does your sore throat recur? If so, how often? How many days of school or work have you missed because of a sore throat? ?? Do you have trouble eating or swallowing? ?? Have you been told that you snore or have other sleep problems? ?? Do you have bad breath? ?? Do you cough up bad-tasting mucus? Physical exam During the exam, your healthcare provider checks your ears, nose, and throat for problems. He or shealso checks for swelling in the neck, and may listen to your chest. Possible tests Other tests your healthcare provider may perform include: ?? A throat swab to check for bacteria such as??streptococcus (the bacteria that causes strep throat) ?? A blood test to check for mononucleosis (a viral infection) ?? A chest X-ray to rule out pneumonia, especially if you have a cough Treating a sore throat Treatment depends on many factors. What is the likely cause? Is the problem recent? Does it keep coming back? In many cases, the best thing to do is to treat the symptoms, rest, and let the problem heal itself. Antibiotics may help clear up some bacterial infections. For cases of severe or recurring to nsillitis, the tonsils may need to be removed. Relieving your symptoms ?? Don???t smoke, and avoid secondhand smoke. ?? For children, try throat sprays or Popsicles. Adults and older children may try lozenges. ?? Drink warm liquids to soothe the throat and help thin mucus. Avoid alcohol, spicy foods, and acidic drinks such as orange juice. These can irritate the throat. ?? Gargle with warm saltwater (1??teaspoon of salt to??8??ounces of warm water). ?? Use a humidifier to keep air moist and relieve throat dryness. ?? Try [id number] pain relievers such as acetaminophen or ibuprofen. Use as directed, and don???t exceed the recommended dose. Don???t give aspirin to children. Are antibiotics needed? If your sore throat is due to a bacterial infection, antibiotics may speed healing and prevent complications. Although group A streptococcus (strep throat or GAS) is the major treatable infection fora sore throat, GAS causes only 5% to 15% of sore throats in adults who seek medical care. Most sore t hroats are caused by cold or flu viruses. And antibiotics don???t treat viral illness. In fact, using antibiotics when they???re not needed may produce bacteria that are harder to kill. Your healthcareprovider will prescribe antibiotics only if he or she thinks they are likely to help. If antibiotics are prescribed Take the medicine exactly as directed. Be sure to finish your prescription even if you???re feeling better. And be sure to ask your healthcare provider or pharmacist what side effects are common and what to do about them. Is surgery needed? In some cases, tonsils need to be removed. This is often done as outpatient (same-day) surgery. Yourhealthcare provider may advise removing the tonsils in cases of: ?? Several severe bouts of tonsillitis in a year. ???Severe?? episodes include those that lead to missed days of school or work, or that need to be treated with antibiotics. ?? Tonsillitis that causes breathing problems during sleep ?? Tonsillitis caused by food particles collecting in pouches in the tonsils (cryptic tonsillitis) Call your healthcare provider if any of the following occur: ?? Symptoms worsen, or new symptoms develop. ?? Swollen tonsils make breathing difficult. ?? The pain is severe enough to keep you from drinking liquids. ?? A skin rash, hives, or wheezing develops. Any of these could signal an allergic reaction to antibiotics. ?? Symptoms don???t improve within a week. ?? Symptoms don???t improve within??2 to 3??days of starting antibiotics. Date Last Reviewed: 12/29/2015 ?? [id number] [employer]. [address] [place] [address], [place] [address]. All rights reserved. This information is not intended as a substitute for professional medical care. Always follow your healthcare professional's instructions. D HELP documented in this encounter Medications at Time [...] documented as of this encounter ED Notes Rainer Medina RN - 04/26/2017 11:13 PM CST Pt presents with SOB, cough and cold like symptoms. Pt states that coughing hurts, ABC's intact A&Ox. 4 D HELP Eneida Rivera MD - 04/26/2017 11:01 PM CST History Chief Complaint: Pharyngitis HPI Claudia Benoit is a 26 year old female who presents with pharyngitis. Her symptoms began early yesterday and started as a sore throat and hoarse voice. She notes she developed a harsh, painful, dry cough started last night which is associated with nausea and some chest pain from coughing. She reports it takes a lot of effort to hold back from coughing. She took Mucinex and Tylenol cold and flu medicine which didn???t significantly alleviate her symptoms. Patient underwent negative rapid strep and flutests yesterday and was prescribed Penicillin to cover missed infection. Her tonsils have not been removed. Allergies: No known drug allergies. Medications: Zoloft Mirena Multivitamin Past Medical History: Depression Past Surgical History: History reviewed. No pertinent past surgical history. Family History: History reviewed. No pertinent family history. Social History: Marital Status: Single Presents to the ED alone. Tobacco Use: Never Alcohol Use: No PCP: Lindsay Braxton Review of Systems HENT: Positive for sore throat. Respiratory: Positive for cough. Cardiovascular: Positive for chest pain. Gastrointestinal: Positive for nausea. All other systems reviewed and are negative. Physical Exam First Vitals: BP: (!) 138/104 Pulse: 80 Heart Rate: 80 Temp: 98.3 ??F (36.8 ??C) Resp: 18 SpO2: 100 % Physical Exam Constitutional: Well developed, Well nourished, anxious,mildly uncomfortably appearing HENT: Bilateral external ears normal, Mucous membranes moist, Nose normal. Neck- Normal range of motion, Supple, posterior pharynx unremarkable. Voice mildly hoarse but no stridor or difficulty with secretions, TMs normal, no pain with tracheal manipulation, Respiratory: Normal breath sounds, No respiratory distress, No wheezing, Cardiovascular: Normal heart rate, Normal rhythm, No murmurs, Musculoskeletal: Intact distal pulses, No edema, grossly unremarkable range of motion, no crepitus in the soft tissues of neck or chest wall Integument: Warm, Dry Neurologic: Alert, attentive and appropriately oriented Psychiatric: Mood normal and anxious affect Emergency Department Course Interventions: 2331: Tylenol, 1000 mg, oral 2331: Toradol, 30 mg, IM injection 2332: Albuterol, 2.5 mg, nebulization Emergency Department Course: Nursing notes and vitals reviewed. 2314: I performed an exam of the patient as documented above. The above workup was undertaken. 2359: I rechecked the patient and discussed results. Patient feels much better after medications. Discussed supportive measures, indications for return. Findings and plan explained to the Patient. Patient discharged home, status improved, with instructions regarding supportive care, medications, and reasons to return as well as the importance of close follow-up was reviewed. Patient was prescribed an albuterol inhaler. Impression & Plan Medical Decision Making: Claudia Benoit is a 26 year old female who presents for evaluation of sore throat, cough and chest pressure. This is consistent with an upper respiratory tract infection. There is no signs at this pointof serious bacterial infection such as OM, RPA, epiglottitis, MECHANIC FOREMAN, strep pharyngitis, pneumonia, sinusitis, meningitis, bacteremia, serious bacterial infection. Given clear lungs, fever curve, no hypoxia and no respiratory distress I do not feel she needs a CXRat this point as the probability of bacterial pneumonia is very unlikely. She is feeling much betterafter interventions here in the ED. Diagnosis: ICD-10-CM 1. Upper respiratory tract infection, unspecified type J06.9 2. Throat pain R07.0 Disposition: Discharged to home. Discharge Medications: New Prescriptions ALBUTEROL (PROAIR HFA) 108 (90 BASE) MCG/ACT INHALER Inhale 2 puffs into the lungs every 4 hours asneeded for shortness of breath / dyspnea Krystyna Ellington am serving as a scribe on 04/26/2017 at 11:14 PM to personally document services performed by Dr. Rivera based on my observations and the provider's statements to me. [facility] EMERGENCY DEPARTMENT Eneida Rivera MD 04/27/17 0009 D HELP documented in this encounter Plan of Treatment Not on filedocumented as of this encounter Visit Diagnoses Diagnosis Upper respiratory tract infection, unspe cified type Throat pain documented in this encounter Administered Medications Inactive Administered Medications - up to 3 most recent administrations Medication Order MAR Action Action Date Dose Rate Site acetaminophen (TYLENOL) tablet Given 04/26/2017 11:31 PM HIRED HELP 1,0 00 mg 1,000 mg 1,000 mg, Oral, EVERY 4 HOURS PRN, fever, Starting on 04/26/17 at 2318, Maximum acetaminophen dose from all sources = 75 mg/kg/day not to exceed 4 gram albuterol neb solution 2.5 mg Given 04/26/2017 11:32 PM HIRED HELP 2.5 mg 2.5 mg, Nebulization, ONCE, On 04/26/17 at 2320, For 1 dose ketorolac (TORADOL) injection 30 mg Given 04/26/2017 11:31 PM HIRED HELP 30 mg 30 mg, Intramuscular, ONCE, On 04/26/17 at 2321, For 1 dose, For ordered doses up to 30 mg, give IV Push undiluted over 2 minutes. documented in this encounter Active and Recently Administered Medications Times are shown in HIRED HELP. Scheduled Medication Order 04/25/2017 04/26/2017 04/27/2017 albuterol neb solution 2.5 mg (COMPLETED) 2331 (Given - Provider: Rainer Medina, FLAKITA) 2.5 mg, Nebulization, ONCE, 04/26/17 at 2320, For 1 dose ketorolac (TORADOL) injection 30 mg (COMPLETED) 2330 (Given - Provider: Rainer Medina RN) 30 mg, Intramuscular, ONCE, 04/26/17 at 2321, For 1 dose, For ordered doses up to 30 mg, give IV Push undiluted over 2 minutes. PRN Medication Order 04/25/2017 04/26/2017 04/27/2017 acetaminophen (TYLENOL) tablet 1,000 mg 2330 (Given - Provider: Rainer Medina RN) 1,000 mg, Oral, EVERY 4 HOURS PRN, fever , Starting 04/26/17 at 2318, Maximum acetaminophen dose from all sources = 75 mg/kg/day not to exceed 4 gram documented in this encounter Care Teams Anesthesia Associate Relationship Specialty Start Date End Date Lindsay Braxton MD PCP - General Family Practice 02/25/17 [address] [place] [address] Tayla Mondragon NP PCP - Assigned PCP 03/01/17 02/27/18 [facility] [address] [place] [address] documented as of this encounter
--- OUTSIDE RECORDS SUMMARY | 2021-11-07 09:31 | XMS_ITS | Encounter Summary ---
:1990 Author Organization [place] Address [address] [place] [id number] Care Team Providers Name Role Phone Lindsay Braxton MD Primary Care Provider [phone] Tayla Mondragon GENERAL CONTRACTOR Unavailable Reason for Visit [facility] Physical Therapy - Closed Specialty Diagnoses / Procedures Referred By Contact Refer red To Contact Diagnoses Bilateral carpal tunnel syndrome Rodrigo Kirby, DO [facility] MED [id number] [id number] Referral ID Status Reason Start Date Expiration Date Visits Requ ested Visits Authorized [id number] Closed 10/28/2017 03/29/2018 40 38 Encounter Details Date Type Department Care Team Description 11/04/[address] [facility] Rodrigo Kirby, DO [facility] [id number] [place] [id number] Bilateral carpal tunnel syndrome (Primar y Dx); Rehabilitation Services Shalini Crouch, [facility] [address] [facility] [address] [place], [place] [address] Bilateral hand pain [facility] [address] [facility] [address] [place], [place] [address] Social History Tobacco Use Types Packs/Day Years Used Date Never Smoker Smokeless Tobacco: Never Used Alcohol Use Standard Drinks/Week Comments Yes 0 (1 standard drink = 0.6 oz pure alcoho l) Sex Assigned at Date Recorded Not on file documented as of this encounter Progress Notes Shalini Crouch, OTR - 11/04/2017 2:00 PM CDT Hand Therapy Initial Evaluation Current Date: 11/04/2017 Diagnosis: Bilateral carpal tunnel syndrome DOI/ orders: 10/28/17 Onset: Fall 2016 Referring MD: Rodrigo Kirby DO Subjective: Claudia Benoit is a 26 year old R hand dominant female. Patient reports symptoms of pain, weakness/loss of strength and tingling of the right and left handsleft is worse which occurred due to CTS. Since onset symptoms are Unchanged?? Special tests:?? no.??Previous treatment: OT wrist brace.? General health as reported by patient is good.?? Pertinentmedical history includes:Depression, History of Fractures, Numbness/Tingling, pain at night, significant weakness Medical allergies:none. Surgical history: orthopedic: ankle 2007.?? Medication history:Anti-depressants, Pain. 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 no limitations Barriers include:none Mobility: No difficulty Transportation: drives Leisure activities/hobbies: horseback riding, gardening, house projects Functional Outcome Measure: See flowsheet Objective: Pain Level Report VAS(0-10) 11/04/2017 At Rest: 810 With Use: 8/10 Report of Pain: Location: wrist and hand Pain Quality: Tingling Frequency: constant Pain is worst: daytime or nighttime Exacerbated by: Typing, grabbing phone, using microscope. Relieved by: Mild relief e from icy hot Progression: Unchanged Edema: MILD over B carpal tunnel Sensation: Decreased Median Nerve distribution ROM: Pain Report: - none + mild ++ moderate +++ severe Wrist 11/04/2017 AROM (PROM) R L Extension - - Flexion ++ ++ RD - - UD - - Supination -- - Pronation - - Special Tests: Pain Report: - none + mild ++ moderate +++ severe Date 11/04/2017 Side R L Phalens + after 10 seconds + after [address] - - Tinels at Pronator + + Carpal Compression - + Paresthesias Thumb, index and middle fingers + Thumb, index and middle fingers + Strength: (Measured in pounds) Pain Report: - none + mild ++ moderate +++ severe Catalytic Converter Operator 11/04/2017 Trials R L 1 60 60 Lat Pinch 11/04/2017 Trials R L 1 14 14 Assessment: Patient presents with symptoms consistent with diagnosis of CTS, with conservative intervention. Patient's limitations or Problem List includes: Pain, Increased edema and Sensory disturbance of thebilateral hand which interferes with the patient's ability to perform Self Care Tasks (dressing), Work Tasks, Sleep Patterns, Recreational Activities, Psychological Operations Specialist and Driving as compared to previous level of function. Rehab Potential: Excellent - Return to full activity, no limitations Patient will benefit from skilled Occupational Therapy to increase sensation and decrease pain and edema to return to previous activity level and resume normal daily tasks and to reach their rehab potential. Barriers to Learning: No barrier Communication Issues: Patient appears to be able to clearly communicate and understand verbal and written communication and follow directions correctly. Chart Review: Chart Review and Simple history review with patient Identified Performance Deficits: dressing, care of pets, driving and community mobility, home establishment and management, meal preparation and cleanup, shopping, work and leisure activities Assessment of Occupational Performance: 1-3 Performance Deficits Clinical Decision Making (Complexity): Low complexity Treatment Explanation: The following has been discussed with the patient: RX ordered/plan of care Anticipated outcomes Possible risks and side effects Plan: Frequency: 1 X week, once daily Duration: for 6 weeks Treatment Plan: Modalities: US Therapeutic Exercise: AROM, AAROM, PROM, Tendon Gliding, Blocking, Isotonics, Isometrics and Stabilization Neuromuscular re-education: Nerve Gliding, Sensory re-education, Kinesiotaping, Isometrics and Stabilization Manual Techniques: Myofascial release and Manual edema mobilization Orthotic Fabrication: Static orthosis Self Care: Self Care Tasks and Ergonomic Considerations Discharge Plan: Achieve all LTG. Independent in home treatment program. Reach maximal therapeutic benefit. Home Exercise Program: Median nerve glides Tendon glides Custom wrist orthosis for night and day PRN Tuba newscast director for edema Next Visit: Passive nerve glides K-tape documented in this encounter Plan of Treatment Not on filedocumented as of this encounter Procedures Procedure Name Priority Date/Time Associated Diagnosis Comme nts HC OT EVAL, LOW Routine 11/04/2017 3:08 PM Bilateral carpal COMPLEXITY CDT tunnel syndrome Bilateral hand pain ZZC THERAPEUTIC Routine 11/04/2017 3:08 PM Bilateral carpal EXERCISES CDT tunnel syndrome Bilateral hand pain documented in this encounter Visit Diagnoses Diagnosis Bilateral carpal tunnel syndrome - Prima ry Carpal tunnel syndrome Bilateral hand pain Pain in limb documented in this encounter Care Teams Warehouse Assistant Relationship Specialty Start Date End Date Lindsay Braxton MD PCP - General Family Practice 02/25/17 [address] [place] [address] Tayla Mondragon GENERAL CONTRACTOR PCP - Assigned PCP 03/01/17 02/27/18 [facility] [address] [place] [address] documented as of this encounter
--- OUTSIDE RECORDS SUMMARY | 2021-11-07 09:31 | XMS_ITS | Encounter Summary ---
:1990 Author Organization [place] Address [address] [place] [address]. [place] [address] Care Team Providers Name Role Phone Lindsay Braxton MD Primary Care Provider [phone] Tayla Mondragon SUBSTATION OPERATOR TRANSFORMING Unavailable Reason for Visit Diagnostic Imaging XR - Closed Specialty Diagnoses / Procedures Referred By Contact Refer red To Contact Diagnoses Elbow pain, right Tayla Mondragon, SUBSTATION OPERATOR TRANSFORMING Procedures XR Elbow Right G/E 3 Views XR Elbow Right 2 Views [facility] [address] [place] [address] Referral ID Status Reason Start Date Expiration Date Visits Requ ested Visits Authorized [id number] Closed 10/06/2017 10/06/2018 1 1 Encounter Details Date Type Department Care Team Description 10/06/2017 Radiant Appointment [facility] Tayla Mondragon, Elbow pain, right [facility] SUBSTATION OPERATOR TRANSFORMING [id number] [facility] [id number] [phone] [place] [address] Social History Tobacco Use Types Packs/Day Years [...] Priority Date/Time Associated Diagnosis Comme nts XR ELBOW RIGHT G/E Routine 10/06/2017 8:57 AM Elbow pain, righ t Results for this 3 VIEWS CDT procedure are i n the results section. documented in this encounter Results XR Elbow Right G/E 3 Views (10/06/2017 8:57 AM CDT) Anatomical Region Laterality Modality Elbow, Right Elbow Right Computed Radiography Specimen (Source) Anatomical Location Collection Method / Collectio n Time Received Time / Laterality Volume Impressions 10/06/2017 2:41 PM CDT IMPRESSION: Negative. WHITNEY CHESTER MD Narrative 10/06/2017 2:41 PM CDT XR ELBOW RT G/E 3 VW 10/06/2017 2:41 PM HISTORY: ; Elbow pain, right Procedure Note Whitney Chester MD - 10/06/2017Formatt ing of this note might be different from the original. XR ELBOW RT G/E 3 VW 10/06/2017 2:41 PM HISTORY: ; Elbow pain, right IMPRESSION: Negative. WHITNEY CHESTER MD Tayla Mondragon SUBSTATION OPERATOR TRANSFORMING IMG DIAGNOSTIC IMAGING ORDER VELMA documented in this encounter Visit Diagnoses Diagnosis Elbow pain, right Pain in joint, upper arm documented in this encounter Care Teams Annealer Relationship Specialty Start Date End Date Lindsay Braxton MD PCP - General Family Practice 02/25/17 [address] [place] [address] Tayla Mondragon NP PCP - Assigned PCP 03/01/17 02/27/18 [facility] [address] [place] [address] documented as of this encounter
--- OUTSIDE RECORDS SUMMARY | 2021-11-07 09:31 | XMS_ITS | Encounter Summary ---
:1990 Author Organization [place] Address [address] [place] [address]. [place] [address] Care Team Providers Name Role Phone Unavailable Primary Care Provider Unavailable Reason for Visit JOSE Occupational Therapy (Routine) - Closed Specialty Diagnoses / Procedures Referred By Contact Refer red To Contact Occupational Therapy Diagnoses >4, Hand injury, right, subsequent encounter / Tayla Mondragon NP @ [facility] Tayla Mondragon NP [facility] Procedures HAND [facility]ITIAL [facility] Therapy - [place] [address] [address] [place] [address] [address] [place] [address] Phone: Fax: Referral ID Status Reason Start Date Expiration Date Visits V isits Requested Authorized JOSE/HP/OT/HAND Closed 11/25/2016 03/29/2017 20 20 Encounter Details Date Type Department Care Team Description 12/22/2016 Therapy Visit [facility] Barbara Love, Pain o f finger of right hand; Rehabilitation Services OT Finger stiffness, right; [facility] [address] [place] Un specified injury of right wrist, hand and finger(s), subsequent encounter [facility] [address] [address] [place], [place] [address] [address] [place], [place] [address] Social History Tobacco Use Types Packs/Day Years Used Date Never Smoker Smokeless Tobacco: Never Used Alcohol Use Standard Drinks/Week Comments Yes 0 (1 standard drink = 0.6 oz pure alcoho l) Sex Assigned at Date Recorded Not on file documented as of this encounter Progress Notes Barbara Love - 12/22/2016 10:30 AM CDT SOAP Note objective information for 12/22/2016 AROM of Fingers AROM (PROM): Small Range of Motion Date 11/25/2016 12/05/16 12/22/16 Side R R R MP ext -30 0 0 MP flex 95 85 95 PIP ext -25 -20 -14 PIP flex 84 95 95 DIP ext -3 0 0 DIP flex 51 65 70 LOYA 172 225 246 Please refer to the daily flowsheet for treatment today, total treatment time and time spent performing 1:1 timed codes.? Barbara Love - 12/22/2016 10:30 AM CDT Pt has not returned for therapy since 12/23/16. Assume all goals are met to pt satisfaction. D/C [facility]. documented in this encounter Plan of Treatment Not on filedocumented as of this encounter Procedures Procedure Name Priority Date/Time Associated Diagnosis Comme nts [facility] MANUAL THER Routine 12/26/2016 10:15 AM Pain of finger of TECH,1+REGIONS,EA 15 MIN CDT right h and Finger stiffness, right Unspecified injury of right wrist, hand and finger(s), subsequent encounter [facility] NEUROMUSCULAR Routine 12/26/2016 10:15 AM Pain of finger o f RE-EDUCATION CDT right hand Finger stiffness, right Unspecified injury of right wrist, hand and finger(s), subsequent encounter documented in this encounter Visit Diagnoses Diagnosis Pain of finger of right hand Pain in limb Finger stiffness, right Unspecified injury of right wrist, hand and finger(s), subsequent encounter documented in this encounter
--- OUTSIDE RECORDS SUMMARY | 2021-11-07 09:31 | XMS_ITS | Encounter Summary ---
:1990 Author Organization [place] Address [facility] [place] [address] Care Team Providers Name Role Phone Lindsay Braxton MD Primary Care Provider [phone] Reason for Visit Reason Comments Numbness Encounter Details Date Type Department Care Team Description 02/25/2017 Office Visit [facility] Tayla Mondragon, Neal rge of breast (Primary Dx); Clinic [facility]ER Bilateral carpal tunnel syndrome [id number] [facility] [address] [address] [phone] [place], [place] [address] Social History Tobacco Use Types Packs/Day Years Used Date Never Smoker Smokeless Tobacco: Never Used Alcohol Use Standard Drinks/Week Comments Yes 0 (1 standard drink = 0.6 oz pure alcoho l) Sex Assigned at Date Recorded Not on file documented as of this encounter Last Filed Vital Signs Vital Sign Reading Time Taken Comments Blood Pressure 122/70 02/25/2017 1:02 PM MANAGER STYLE Pulse 76 02/25/2017 1:02 PM MANAGER STYLE Temperature 36.7 ??C (98 ??F) 02/25/2017 1:02 PM MANAGER STYLE Respiratory Rate 16 02/25/2017 1:02 PM MANAGER STYLE Oxygen Saturation 99% 02/25/2017 1:02 PM MANAGER STYLE Inhaled Oxygen Concentration - - Weight 74.8 kg (165 lb) 02/25/2017 1:02 PM MANAGER STYLE Height 169.5 cm (5' 6.75) 02/25/2017 1:02 PM MANAGER STYLE Body Mass Index 26.04 02/25/2017 1:02 PM MANAGER STYLE documented in this encounter Progress Notes Tayla Mondragon NP - 02/25/2017 1:00 PM CST SUBJECTIVE: Claudia Benoit is a 26 year old female who presents to clinic today for the following health issues: Here with concerns about carpal tunnel .Has been seen by Dr. Cerna at [facility]. Had an EMG yesterday and the [facility] recommended that she have her vitamins, minerals, and lyme disease screening. Has been wearing the braces recommended by Dr. Braxton and they have been very helpful in managing her symptoms. Has ongoing joint pain with numbness in both of her great toes. Has discharge from her breasts as well. Is requesting a prolactin level as well. Has talked to her Apparel Machinery Instructor about this as well. Complaining of breast tendernesss. Problem list and histories reviewed & adjusted, [...] negative, except as otherwise noted. OBJECTIVE: BP 122/70 (BP Location: Right arm, Patient Position: Chair, Cuff Size: Adult Regular) Pulse 76 Temp 98 ??F (36.7 ??C) (Oral) Resp 16 Ht 5' 6.75 (1.695 m) Wt 165 lb (74.8 kg) LMP SpO2 99% BMI 26.04 kg/m2 Body mass index is 26.04 kg/(m^2). GENERAL: healthy, alert and no distress RESP: lungs clear to auscultation - no rales, rhonchi or wheezes CV: regular rate and rhythm, normal S1 S2, no S3 or S4, no murmur, click or rub, no peripheral edemaand peripheral pulses strong MS: positive phalen and tinels. SKIN: no suspicious lesions or rashes PSYCH: mentation appears normal, affect normal/bright ASSESSMENT/PLAN: 1. Discharge of breast Prolactin level drawn today. - Prolactin 2. Bilateral carpal tunnel syndrome I have explained that we do not have any reason to draw just anything and certainly not minerals andvitamins. Will draw a vitamin D and b12. - Vitamin D Deficiency - Vitamin B12 - CRP inflammation - Comprehensive metabolic panel - Lyme Disease Silvia with reflex to WB Serum Likely all labs will be within normal limits. Tayla Mondragon NP [facility] GER STYLE documented in this encounter Nursing Notes Pravin Madera CMA - 02/25/2017 1:00 PM CST Chief Complaint Patient presents with ??? Numbness Initial BP 122/70 (BP Location: Right arm, Patient Position: Chair, Cuff Size: Adult Regular) Pulse 76 Temp 98 ??F (36.7 ??C) (Oral) Resp 16 Ht 5' 6.75 (1.695 m) Wt 165 lb (74.8 kg) LMP SpO2 99% BMI 26.04 kg/m2 Estimated body mass index is 26.04 kg/(m^2) as calculated from the following: Height as of this encounter: 5' 6.75 (1.695 m). Weight as of this encounter: 165 lb (74.8 kg). Medication Reconciliation: complete Pravin Madera CMA GER STYLE documented in this encounter Plan of Treatment Not on filedocumented as of this encounter Procedures Procedure Name Priority Date/Time Associated Comments Diagnosis LYME DISEASE TOTAL ABS Routine 02/25/2017 1:30 PM Bilateral ca rpal Results for this BLD WITH REFLEX TO MANAGER STYLE tunnel syndrome proced ure are in CONFIRM CLIA the results section. VITAMIN D DEFICIENCY Routine 02/25/2017 1:30 PM Bilateral carp al Results for this SCREENING MANAGER STYLE tunnel syndrome procedure ar e in the results section. PROLACTIN Routine 02/25/2017 1:30 PM Discharge of breast Re sults for this MANAGER STYLE procedure are i n the results section. CRP INFLAMMATION Routine 02/25/2017 1:30 PM Bilateral carpal R esults for this MANAGER STYLE tunnel syndrome procedure ar e in the results section. COMPREHENSIVE Routine 02/25/2017 1:30 PM Bilateral carpal Resu lts for this METABOLIC PANEL MANAGER STYLE tunnel syndrome procedure are in the results section. VITAMIN B12 Routine 02/25/2017 1:30 PM Bilateral carpal Resul ts for this MANAGER STYLE tunnel syndrome procedure ar e in the results section. documented in this encounter Results Prolactin (02/25/2017 1:30 PM MANAGER STYLE) athologist [facility] Prolactin 9 3 - 27 ug/L 02/25/2017 [facility] 7:09 PM [facility] Comment: Reference ranges apply to non-p regnant females only. Specimen Anatomical Collection Method Collection Time Receive d Time (Source) Location / / Volume Laterality Blood specimen 02/25/2017 1:30 PM 017 1:31 (specimen) MANAGER STYLE PM MANAGER STYLE Tayla Mondragon NP LAB - BLOOD ORDERABLES Performing Organization Address City/[facility]/ZIP Code Phon e Number [address] Lyme Disease Silvia with reflex to WB Serum (02/25/2017 1:30 PM MANAGER STYLE) athologist [facility] Lyme Disease 0.03 0.00 - 02/26/2017 [facility] 0.89 12:13 PM [facility] Comment: Negative, Absence of detectable Borrelia burdorferi antibodies. A negative result does not exclude the possibility of Borrelia burgdorferi infection. If early Lyme disease is suspected, a secon d sample should be collected and tested 2 to 4 weeks later. Specimen Anatomical Collection Method Collection Time Receive d Time (Source) Location / / Volume Laterality Blood specimen 02/25/2017 1:30 PM 017 1:31 (specimen) MANAGER STYLE PM MANAGER STYLE Tayla Mondragon NP LAB - BLOOD ORDERABLES Performing Organization Address City/[facility] Phon e Number [address] (ABNORMAL) Comprehensive metabolic panel (02/25/2017 1:30 PM MANAGER STYLE) athologist [facility] Sodium 140 133 - 144 02/26/2017 [facility] mmol/L 8:16 AM [facility] Potassium 3.7 3.4 - 5.3 02/26/2017 [facility] mmol/L 8:16 AM [facility] Chloride 106 94 - 109 02/26/2017 [facility] mmol/L 8:16 AM [facility] Carbon Dioxide 26 20 - 32 02/26/2017 [facility] mmol/L 8:16 AM [facility] An[facility] Gap 8 3 - 14 02/26/2017 [facility] mmol/L 8:16 AM [facility] Glucose 80 70 - 99 02/26/2017 [facility] mg/dL 8:16 AM [facility] Urea Nitrogen 20 7 - 30 02/26/2017 [facility] mg/dL 8:16 AM [facility] Creatinine 0.68 0.52 - 02/26/2017 [facility] 1.04 mg/dL 8:16 AM [facility] GFR Estimate >90 >60 02/26/2017 [place] mL/min/1.7 8:[address] Comment: Non GFR Calc GFR Estimate If >90 >60 mL/min/1.7m2 02/26/2017 8:16 A [facility]3] Black [facility] Comment: GFR Calc Calcium 9.0 8.5 - 10.1 02/26/2017 8:16 AM [facility] mg/dL [facility] Bilirubin Total 0.3 0.2 - 1.3 02/26/2017 8:16 AM [facility] mg/dL [facility] Albumin 3.9 3.4 - 5.0 g/dL 02/26/2017 8:16 AM [facility] Protein Total 7.3 6.8 - 8.8 g/dL 02/26/2017 8:17 AM [facility] Alkaline Phosphatase 37 (L) 40 - 150 U/L 02/26/2017 8:17 AM [facility] [place] ALT 31 0 - 50 U/L 02/26/2017 8:16 AM [facility] [place] AST 18 0 - 45 U/L 02/26/2017 8:16 AM [place] [facility] Specimen Anatomical Collection Method Collection Time Receive d Time (Source) Location / / Volume Laterality Blood specimen 02/25/2017 1:30 PM 017 1:31 (specimen) MANAGER STYLE PM MANAGER STYLE Tayla Mondragon [employer] LAB - BLOOD ORDERABLES Performing Organization Address City/State/ZIP Code Phon e Number [facility] [address] [place] [address] CRP inflammation (02/25/2017 1:30 PM MANAGER STYLE) Analysis Performed At Patho logist Time Signature CRP Inflammation <2.9 0.0 - 8.0 02/25/2017 [facility] mg/L 7:00 PM MANAGER STYLE [facility] Specimen Anatomical Collection Method Collection Time Receive d Time (Source) Location / / Volume Laterality Blood specimen 02/25/2017 1:30 PM 017 1:31 (specimen) MANAGER STYLE PM MANAGER STYLE Tayla Mondragon NP LAB - BLOOD ORDERABLES Performing Organization Address City/State/ZIP Code Phon e Number [facility] [address] [place] [address] [facility] Vitamin B12 (02/25/2017 1:30 PM MANAGER STYLE) P athologist Signature Vitamin B12 [phone] 6 02/25/2017 [facility] pg/mL 7:28 PM MANAGER STYLE [facility] Specimen Anatomical Collection Method Collection Time Receive d Time (Source) Location / / Volume Laterality Blood specimen 02/25/2017 1:30 PM 017 1:31 (specimen) MANAGER STYLE PM MANAGER STYLE Tayla Mondragon [employer] LAB - BLOOD ORDERABLES Performing Organization Address City/State/ZIP Code Phon e Number [facility] [address] [place] [address] [facility] Vitamin D Deficiency (02/25/2017 1:30 PM MANAGER STYLE) P athologist Signature Vitamin D 23 20 - 75 02/26/2017 [facility] Deficiency ug/L 10:17 AM MANAGER STYLE [facility] Comment: Season, race, dietary intake, and treatm ent affect the concentration of 83-[id number]-Uxxncln D. Values may decreas e during winter months and increase during summer months. Values 20-29 ug/L may indicate Vitamin D insufficiency and values <20 ug/L may indicate Vitamin D deficiency. Vitamin D determination is routinely per formed by an immunoassay specific for 25 hydroxyvitamin D3. ??If an individual is on vitamin D2 (ergocalciferol) supplementation, please specify 25 [place] vi tamin D2 and D3 level determination by LCMSMS test VITD23. Specimen Anatomical Collection Method Collection Time Receive d Time (Source) Location / / Volume Laterality Blood specimen 02/25/2017 1:30 PM 017 1:31 (specimen) MANAGER STYLE PM MANAGER STYLE Tayla Mondragon NP LAB - BLOOD ORDERABLES Performing Organization Address City/State/ZIP Code Phon e Number [facility] [address] documented in this encounter Visit Diagnoses Diagnosis Discharge of breast - Primary Other sign and symptom in breast Bilateral carpal tunnel syndrome Carpal tunnel syndrome documented in this encounter Care Teams Hydrography Teacher Relationship Specialty Start Date End Date Lindsay Braxton MD PCP - General Family Practice 02/25/17 [address] [place] [address] documented as of this encounter
--- OUTSIDE RECORDS SUMMARY | 2021-11-07 09:31 | XMS_ITS | Encounter Summary ---
:1990 Author Organization [place] Address [address] [place] [address]. [place] [address] Care Team Providers Name Role Phone Unavailable Primary Care Provider Unavailable Encounter Details Date Type Department Care Team Description 10/01/2016 Radiant Appointment [facility] Lindsay Braxton Finger injury, Clinic Cullen Aguilar MD right, initial [address] [address] [facility] [place] [address] [phone] Social History Tobacco Use Types Packs/Day Years [...] Priority Date/Time Associated Diagnosis Comme nts XR FINGER RIGHT G/E Routine 10/01/2016 10:21 AM Finger injury, Results for this 2 VIEWS CDT right, initial procedure are in encounter the results section. documented in this encounter Results XR Finger Right G/E [...] Diagnoses Diagnosis Finger injury, right, initial encounter documented in this encounter
--- OUTSIDE RECORDS SUMMARY | 2021-11-07 09:31 | XMS_ITS | Encounter Summary ---
:1990 Author Organization [facility] Address [address] [place] [address] Care Team Providers Name Role Phone No Ref-Primary, Physician Primary Care Provider [phone] Reason for Visit Reason Comments Nerve Pain Encounter Details Date Type Department Care Team Description [facility]/14[facility]2017 [facility] Emergency Dep t tunnel syndrome [address] [facility] [place] [address] [facility] [phone] [place], [place] [address] (Wo rk) Social History Tobacco Use Types Packs/Day Years Used Date Never Smoker Smokeless Tobacco: Never Used Alcohol Use Standard Drinks/Week Comments Yes 0 (1 standard drink = 0.6 oz pure alcoho l) Sex Assigned at Date Recorded Not on file documented as of this encounter Last Filed Vital Signs Vital Sign Reading Time Taken Comments Blood Pressure 136/93 02/14/2017 3:56 PM WAGON PERSON Pulse 68 02/14/2017 3:56 PM WAGON PERSON Temperature 36.2 ??C (97.1 ??F) 02/14/2017 3:56 PM WAGON PERSON Respiratory Rate 18 02/14/2017 3:56 PM WAGON PERSON Oxygen Saturation 100% 02/14/2017 3:56 PM WAGON PERSON Inhaled Oxygen Concentration - - Weight - - Height - - Body Mass Index - - documented in this encounter Discharge Instructions Discharge InstructionsValeria Arciniega MD - 02/14/2017 4:19 PM WAGON PERSON Images from the original note were not included. Carpal Tunnel Syndrome Carpal tunnel syndrome is a painful condition of the wrist and arm. It is caused by pressure on the median nerve. The median nerve is one of the nerves that give feeling and movement to the hand. It passes through a tunnel in the wrist called the carpal tunnel. This tunnel is made up of bones and ligaments. Narrowing of this tunnel or swelling of the tissues inside the tunnel puts pressure on the median nerve. This causes numbness, pins and needles, or electric shooting pains in your hand and forearm. Often the pain is worse at night and may wake you when you are asleep. Carpal tunnel syndrome may occur during and with use of control pills. It is more common in workers who must often bend their wrists. It is also common in people who work with power tools that cause strong vibrations. Home care ?? Rest the painful wrist. Avoid repeated bending of the wrist back and forth. This puts pressure onthe median nerve. Avoid using power tools with strong vibrations. ?? If you were given a splint, wear it at night while you sleep. You may also wear it during the dayfor comfort. ?? Move your fingers and wrists often to avoid stiffness. ?? Elevate your arms on pillows when you lie down. ?? Try using the unaffected hand more. ?? Try not to hold your wrists in a bent, downward position. ?? Sometimes changes in the work place may ease symptoms. If you type most of the day, it may help to change the position of your keyboard or add a wrist support. Your wrist should be in a neutral position and not bent back when typing. ?? You may use??[id number]-[id number] pain medicine to treat pain and inflammation, unless another medicine was prescribed.??Anti-inflammatory pain medicines, such as ibuprofen or naproxen may be more effective than acetaminophen, which treats pain, but not inflammation.??If you have chronic liver or kidney disease or ever had a stomach ulcer or GI bleeding, talk with your doctor before using these medicines. ?? Opioid pain medicine will only give temporary relief and does not treat the problem. If pain continues, you may need a shot of a steroid drug into your wrist. ?? If the above methods fail, you may need surgery. This will open the carpal tunnel and release thepressure on the trapped nerve. Follow-up care Follow up with your healthcare provider, or??as advised, if the pain doesn???t begin to improve within the next week. If X-rays were taken,??you will be notified of any new findings that may affect your care. When to seek medical advice Call your healthcare provider right away if any of these occur: ?? Pain not improving with the above treatment ?? Fingers or hand become cold, blue, numb, or tingly ?? Your whole arm becomes swollen or weak Date Last Reviewed: 02/19/2015 ?? [id number] [employer]. [address] [place] [address]. All rights reserved. This information is not intended as a substitute for professional medical care. Always follow your healthcare professional's instructions. Carpal Tunnel Syndrome Prevention Tips Some repetitive hand activities put you at higher risk for carpal tunnel syndrome (CTS). But you canreduce your risk. Learn how to change the way you use your hands. Below are tips for at home and on the job. Be sure to also follow the hand and wrist safety policies at your workplace. Keep your wrist in a neutral (straight) position when exercising. Keep your wrist in neutral Keep a neutral (straight) wrist position as often as you can. Don???t use your wrist in a bent (flexed) position for long periods of time. This includes extended or twisted positions. Watch your mica inspector Don???t just use your thumb and index finger to grasp or lift. This can put stress on your wrist. When you can, use your whole hand and all its fingers to grasp an object. Minimize repetition Don???t move your arms or hands or hold an object in the same way for long periods of time. Even simple, light tasks can cause injury this way. Instead, alternate tasks or switch hands. Rest your hands Give your hands a break from time to time with a rest. Even a few minutes once an hour can help. Reduce speed and force Slow down the speed in which you do a forceful, repetitive motion. This gives your wrist time to recover from the effort. Use power tools to help reduce the force. Strengthen the muscles Weak muscles may lead to a poor wrist or arm position. Exercises will make your hand and arm musclesstronger. This can help you keep a better position. Date Last Reviewed: 12/08/2014 ?? 9420-4730 [employer]. [address] [place] [address]. All rights reserved. This information is not intended as a substitute for professional medical care. Always follow your healthcare professional's instructions. N PERSON documented in this encounter Medications at Time [...] C (STRESS TAB) mouth daily TABS tablet order for Wrist brace with 2 Package 0 02/06/2017 10/07/19 18 DMEIndications: thumb Bilateral carpal tunnel syndrome sertraline (ZOLOFT) 100 TAKE 2 TABLETS BY 1 01/2810/06/2017 MG tablet MOUTH ONCE DAILY XIIDRA 5 % SOLN INSTILL 1 DROP IN 5 01/28/2017 BOTH EYES TWICE DAILY documented as of this encounter ED Notes Annalisa Charlton RN - 02/14/2017 3:57 PM CST ABCs intact. Pt was recently dx with carpel tunnel. Pt c/o increased nerve pain today. N PERSON Valeria Arciniega MD - 02/14/2017 3:47 PM CST History Chief Complaint: Nerve Pain HPI Claudia Benoit is a 26 year old female with a history of anxiety and carpal tunnel who presents to the Emergency Department for evaluation of nerve pain. The patient was seen on 02/06/[address] Cerna for bilateral wrist, hand and arm pain where she was diagnosed with carpal tunnel syndrome andgiven wrist braces to wear. The patient reports the onset of pain and numbness two-three weeks ago and presents today due to increased nerve pain. She has been wearing the wrist splints and reports numbness in her hands and with her left hand worse than the right. She notes pain with flexion and extension of her wrists bilaterally as well as neck pain which she describes as a fire/burning sensation. She has not taken anything for her symptoms. The patient denies any vision changes, weakness, back pain, loss of bladder or bowel control. Allergies: No known drug allergies Medications: sertraline (ZOLOFT) 100 MG tablet XIIDRA 5 % SOLN vitamin B complex with vitamin C (STRESS TAB) TABS tablet levonorgestrel (MIRENA) 20 MCG/24HR IUD Multiple Vitamins-Minerals (MULTIVITAMIN PO) Past Medical History: Cystic acne Carpal tunnel syndrome Anxiety Past Surgical History: The patient does not have any pertinent past surgical history. Family History: No past pertinent family history. Social History: Smoking Status: never smoker Smokeless Tobacco: never used Alcohol Use: no Marital Status: Single [1] Review of Systems Eyes: Negative. Genitourinary: Negative. Musculoskeletal: Positive for arthralgias and neck pain. Negative for back pain. Bilateral wrist and shoulder pain Neurological: Positive for numbness. Negative for weakness. All other systems reviewed and are negative. Physical Exam First Vitals: Patient Vitals for the past 24 hrs: BP Temp Temp src Pulse Resp SpO2 02/14/17 1556 (!) 136/93 97.1 ??F (36.2 ??C) Oral 68 18 100 % Physical Exam Constitutional: Alert, attentive, GCS 15, tearful young woman in mild distress HENT: normocephalic, atraumatic Eyes: Normal conjunctiva CV: regular rate and rhythm; no murmurs, rubs or gallups Chest: Effort normal and breath sounds normal. GI: There is no tenderness. No distension. Normal bowel sounds MSK: Normal range of motion, strength intact, radial pulse 2+ Neurological: Alert, attentive, oriented x4, strength intact in distal and proximal upper extremity muscle groups, decreased sensation bilaterally over thenar eminence and palmar surface of 1st and 2ndfingers, positive Tinels and Phallens sign Skin: Skin is warm and dry. Psych: appears anxious and tearful Emergency Department Course Interventions: 1626 NORCO 1 tablet PO Emergency Department Course: Nursing notes and vitals reviewed. I performed an exam of the patient as documented above. I reassessed the patient. Findings and plan explained to the Patient. Patient discharged home with instructions regarding supportive care, medications, and reasons to return. The importance of close follow-up was reviewed. Impression & Plan Medical Decision Making: Claudia Benoit is a 26 year old female who presents for evaluation of tingling in her hands bilaterally. This is consistent with median nerve distribution and given exam and history the likely diagnosisis carpal tunnel syndrome. Discussed treatment--she has already been using bilateral wrist splints and will need glucocorticoid injection as outpatient. I discussed close follow up of hand surgery. I doubt this is CVA, brain tumor, neck radiculopathy, dissection, ACS or other worrisome etiology. Certainly MS or other nervous system issues are a possibility necessitating close follow up but no indication for consultation or MRI/CT at this point. Patient given dose of pain medication and discharged home. All questions answered. Diagnosis: ICD-10-CM 1. Bilateral carpal tunnel syndrome G56.03 Disposition: discharged to home IPam, am serving as a scribe on 02/14/2017 at 4:03 PM to personally document services performed by Valeria Arciniega MD based on my observations and the provider's statements to me. Pam Zarate 02/14/2017 [facility] Valeria Arciniega MD 02/15/17 0254 N PERSON documented in this encounter Plan of Treatment Not on filedocumented as of this encounter Visit Diagnoses Diagnosis Bilateral carpal tunnel syndrome Carpal tunnel syndrome documented in this encounter Administered Medications Inactive Administered Medications - up to 3 most recent administrations Medication Order MAR Action Action Date Dose Rate Site HYDROcodone-acetaminophen Given 02/14/2017 4:26 PM WAGON PERSON 1 tablet (NORCO) 5-325 MG per tablet 1 tablet 1 tablet, Oral, ONCE, On 02/14/17 at 1620, For 1 dose, Maximum acetaminophen dose from all sources= 75 mg/kg/day not to exceed 4 grams documented in this encounter Active and Recently Administered Medications Times are shown in WAGON PERSON. Scheduled Medication Order 02/12/2017 02/13/2017 02/14/2017 HYDROcodone-acetaminophen (NORCO) 5-325 MG per tablet 1 tablet ( COMPLETED) 1626 (Given - Provider: Jef Ellenson, RN) 1 tablet, Oral, ONCE, On 02/14/17 at 1620, For 1 dose, Maximum acetaminophen dose from all sources= 75 mg/kg/day not to exceed 4 grams documented in this encounter Care Teams Advisor To Command In Combat Relationship Specialty Start Date End Date No Ref-Primary, Physician PCP - General 02/06/17 02/24/17 documented as of this encounter
--- OUTSIDE RECORDS SUMMARY | 2021-11-07 09:31 | XMS_ITS | Encounter Summary ---
:1990 Author Organization [facility] Address [address] [place] [address]. [place] [address] Care Team Providers Name Role Phone No Ref-Primary, Physician Primary Care Provider Reason for Visit Reason Comments Musculoskeletal Problem bilat hand, wrist and arm pa in x 1 week Encounter Details Date Type Department Care Team Description 02/06/2017 Office Visit [facility] [place] Colette Samuels MD tunnel syndrome [address] [place] [address] (Primary Dx) [place] [address] [phone] Social History Tobacco Use Types Packs/Day Years Used Date Never Smoker Smokeless Tobacco: Never Used Alcohol Use Standard Drinks/Week Comments Yes 0 (1 standard drink = 0.6 oz pure alcoho l) Sex Assigned at Date Recorded Not on file documented as of this encounter Last Filed Vital Signs Vital Sign Reading Time Taken Comments Blood Pressure 112/75 02/06/2017 8:06 AM DYNO TECHNICIAN Pulse 72 02/06/2017 8:06 AM DYNO TECHNICIAN Temperature 36.4 ??C (97.6 ??F) 02/06/2017 8:06 AM DYNO TECHNICIAN Respiratory Rate 16 02/06/2017 8:06 AM DYNO TECHNICIAN Oxygen Saturation 99% 02/06/2017 8:06 AM DYNO TECHNICIAN Inhaled Oxygen Concentration - - Weight 73.5 kg (162 lb 1.6 oz) 02/06/2017 8:06 AM DYNO TECHNICIAN Height - - Body Mass Index 25.97 11/15/2016 10:10 AM CDT documented in this encounter Patient Instructions Patient InstructionsColette Cerna MD - 02/06/2017 8:19 AM DYNO TECHNICIAN Images from the original note were not included. Follow up in 1 month or sooner if worsening Carpal Tunnel Syndrome Carpal tunnel syndrome is [...] bent back when typing. ?? You may use??arzc-ptk-[id number] pain medicine to treat pain and inflammation, [...] or weak Date Last Reviewed: 02/19/2015 ?? 3300-6211 [employer]. [address] [place] [address]. All rights reserved. This information is not [...] includes extended or twisted positions. Watch your gun numberer Don???t just use your thumb and index [...] better position. Date Last Reviewed: 12/08/2014 ?? [id number] [employer]. [address] [place] [address]. All rights reserved. This information is not intended as a substitute for professional medical care. Always follow your healthcare professional's instructions. TECHNICIAN documented in this encounter Progress Notes Colette Cerna MD - 02/06/2017 8:00 AM CST SUBJECTIVE: Claudia Benoit is a 26 year old female who presents to clinic today for the following health issues: Joint Pain ?? Onset: 1 week ago ?? Description: Location: bilat wrist, hand and arm pain Character: Dull ache and Stabbing - arms fall asleep ?? Intensity: mild, severe ?? Progression of Symptoms: intermittent ?? Accompanying Signs & Symptoms: Other symptoms: numbness and tingling ?? History: Previous similar pain: no ?? 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 Alleviating factors: Improved by: hasn't tried anything Therapies Tried and outcome: none Problem list and histories reviewed & adjusted, as indicated. Additional history: as documented Patient Active Problem List Diagnosis ??? Cystic acne History reviewed. No pertinent surgical history. Social History Substance Use Topics ??? Smoking status: Never Smoker ??? Smokeless tobacco: Never Used ??? Alcohol use 0.0 oz/week 0 Standard drinks or equivalent per week History reviewed. No pertinent family history. Reviewed and updated as needed this visit by clinical staffTobacco Allergies Meds Med Hx Surg Hx Fam Hx Soc Hx Reviewed and updated as needed this visit by Provider ROS: Constitutional, msk, skin, neuro systems are negative, except as otherwise noted. OBJECTIVE: BP 112/75 (BP Location: Left arm, Patient Position: Chair, Cuff Size: Adult Large) Pulse 72 Temp97.6 ??F (36.4 ??C) (Oral) Resp 16 Wt 162 lb 1.6 oz (73.5 kg) SpO2 99% ? No BMI 25.97 kg/m2 Body mass index is 25.97 kg/(m^2). GENERAL: healthy, alert and no distress MS: positive phalen and tinel's bilaterally - L>R NEURO: sensory exam grossly normal Diagnostic Test Results: none ASSESSMENT/PLAN: 1. Bilateral carpal tunnel syndrome - exam consistent with carpal tunnel. Etiology and nature of CTS discussed. Will start with night time splinting and follow up in 1 month or sooner if needed. - order for DME; Wrist brace with thumb Dispense: 2 Package; Refill: 0 See Patient Instructions Colette Cerna MD [facility] TECHNICIAN documented in this encounter Nursing Notes Deepa Michelle CMA - 02/06/2017 8:00 AM CST Chief Complaint Patient presents with ??? Musculoskeletal Problem bilat hand, wrist and arm pain x 1 week Initial BP 112/75 (BP Location: Left arm, Patient Position: Chair, Cuff Size: Adult Large) Pulse 72 Temp 97.6 ??F (36.4 ??C) (Oral) Resp 16 Wt 162 lb 1.6 oz (73.5 kg) SpO2 99% ? No BMI 25.97 kg/m2 Estimated body mass index is 25.97 kg/(m^2) as calculated from the following: Height as of 11/15/16: 5' 6.25 (1.683 m). Weight as of this encounter: 162 lb 1.6 oz (73.5 kg). Medication Reconciliation: complete TECHNICIAN documented in this encounter Plan of Treatment Not on filedocumented as of this encounter Visit Diagnoses Diagnosis Bilateral carpal tunnel syndrome - Prima ry Carpal tunnel syndrome documented in this encounter Care Teams Preform Plate Maker Relationship Specialty Start Date End Date No Ref-Primary, Physician PCP - General 02/06/17 02/24/17 documented as of this encounter
--- OUTSIDE RECORDS SUMMARY | 2021-11-07 09:31 | XMS_ITS | Encounter Summary ---
:1990 Author Organization [facility] Address [address] [place] [address] Care Team Providers Name Role Phone Unavailable Primary Care Provider Unavailable Reason for Visit Reason Comments Other scratch to upper lip and nos e by a kitten at work today Work Comp Encounter Details Date Type Department Care Team Description 04/20/2014 Office Visit [facility] Hamilton Coffey, Yelena [place] te, initial Urgent Care Pablo SCOTT encounter (Primary Dx) [address] [place] [id number] [phone] Social History Tobacco Use Types Packs/Day Years Used Date Never Smoker Smokeless Tobacco: Never Used Alcohol Use Standard Drinks/Week Comments Not Asked 0 (1 standard drink = 0.6 oz pure alcoho l) Sex Assigned at Date Recorded Not on file documented as of this encounter Last Filed Vital Signs Vital Sign Reading Time Taken Comments Blood Pressure 110/70 04/20/2014 2:51 PM DYE LINE OPERATOR Pulse - - Temperature 37.2 ??C (99 ??F) 04/20/2014 2:51 PM DYE LINE OPERATOR Respiratory Rate - - Oxygen Saturation - - Inhaled Oxygen Concentration - - Weight 74.8 kg (165 lb) 04/20/2014 2:51 PM DYE LINE OPERATOR Height 167.6 cm (5' 6) 04/20/2014 2:51 PM DYE LINE OPERATOR Body Mass Index 26.63 04/20/2014 2:51 PM DYE LINE OPERATOR documented in this encounter Progress Notes Hamilton Coffey PA-C - 04/21/2014 2:26 PM CST SUBJECTIVE: Claudia Benoit is a 23 year old female who presents with a chief complaint of an animal bite on the upper lip and face. She was bitten by a cat today. Cicumstances of bite: animal appeared well. Severity: bite with skin break, scratch. Animal's immunizations up to date Associated symptoms: small cuts Patients last TD was in the last 5 yrs No past medical history on file. ALLERGIES No Known Allergies History Substance Use Topics ??? Smoking status: Never Smoker ??? Smokeless tobacco: Never Used ??? Alcohol Use: Not on file ROS: CONSTITUTIONAL:NEGATIVE for fever, chills, change in weight INTEGUMENTARY/SKIN: POSITIVE for cuts and scrape on face and upper lip ENT/MOUTH: Positive for cut and scratch upper lip MUSCULOSKELETAL: NEGATIVE for significant arthralgias or myalgia NEURO: NEGATIVE for weakness, dizziness or paresthesias OBJECTIVE: BP 110/70 Temp(Src) 99 ??F (37.2 ??C) (Oral) Ht 5' 6 (1.676 m) Wt 165 lb (74.844 kg) BMI 26.64 kg/m2 GENERAL: healthy, alert no acute distress SKIN: abrasion and puncture wound of face HENT: ear canals and TM's normal. Nose and mouth without ulcers, erythema or lesions NECK: supple, nontender, no lymphadenopathy MS:extremities normal- no gross deformities noted, FROM noted in all extremities NEURO: Normal strength and tone, sensory exam grossly normal, normal speech and mentation ASSESSMENT: Cat bite Abrasion PLAN: Orders Placed This Encounter ??? amoxicillin-clavulanate (AUGMENTIN) 875-125 MG per tablet Follow up as needed See orders in [facility] LINE OPERATOR documented in this encounter Nursing Notes Kamla Shah LPN - 04/20/2014 2:53 PM CST Chief Complaint Patient presents with ??? Other scratch to upper lip and nose by a kitten at work today ??? Work Comp Initial BP 110/70 Temp(Src) 99 ??F (37.2 ??C) (Oral) Ht 5' 6 (1.676 m) Wt 165 lb (74.844 kg) BMI 26.64 kg/m2 Estimated body mass index is 26.64 kg/(m^2) as calculated from the following: Height as of this encounter: 5' 6 (1.676 m). Weight as of this encounter: 165 lb (74.844 kg).. BP completed using cuff size: doug Shah LPN LINE OPERATOR documented in this encounter Plan of Treatment Not on filedocumented as of this encounter Visit Diagnoses Diagnosis Cat bite, initial encounter - Primary documented in this encounter
--- OUTSIDE RECORDS SUMMARY | 2021-11-07 09:31 | XMS_ITS | Encounter Summary ---
:1990 Author Organization [facility] Address [address] [place] [address]. [place] [address] Care Team Providers Name Role Phone Lindsay Braxton MD Primary Care Provider [phone] Tayla Mondragon INTERNET [employer] SPECIALIST Unavailable Reason for Visit Reason Comments Urgent Care URI Encounter Details Date Type Department Care Team Description 04/25/2017 Office Visit [facility] Logan Jordan, Inborn error of amino Urgent Care Rosio hill MD acid metabolism (H) [id number] (Primary Dx) [place] [phone] [id number] Social History Tobacco Use Types Packs/Day Years Used Date Never Smoker Smokeless Tobacco: Never Used Alcohol Use Standard Drinks/Week Comments Yes 0 (1 standard drink = 0.6 oz pure alcoho l) Sex Assigned at Date Recorded Not on file documented as of this encounter Progress Notes Logan Jordan MD - 04/25/2017 3:15 PM CST Err ER AND DRIER documented in this encounter Plan of Treatment Not on filedocumented as of this encounter Visit Diagnoses Diagnosis 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
--- OUTSIDE RECORDS SUMMARY | 2021-11-07 09:31 | XMS_ITS | Encounter Summary ---
:1990 Author Organization [facility] Address [address] [place] [address]. [place] [address] Care Team Providers Name Role Phone Unavailable Primary Care Provider Unavailable Reason for Visit JOSE Occupational Therapy (Routine) - Closed Specialty Diagnoses / Procedures Referred By Contact Refer red To Contact Occupational Therapy Diagnoses >4, Hand injury, right, subsequent encounter / Tayla Mondragon NP @ [facility] Tayla Mondragon NP [facility] Procedures HAND [facility] Therapy - [place] [address] [address] [place] [address] [address] [place] [address] Phone: Fax: Referral ID Status Reason Start Date Expiration Date Visits V isits Requested Authorized JOSE/HP/OT/HAND Closed 11/25/2016 03/29/2017 20 20 Encounter Details Date Type Department Care Team Description 12/05/2016 Therapy Visit [facility] Barbara Love, Pain o f finger of right hand; Rehabilitation Services OT Finger stiffness, right; [facility] [address] [place] Un specified injury of right wrist, hand and finger(s), subsequent encounter [facility] [address] [address] [place], [place] [address] [address] [place], [place] [id number] Social History Tobacco Use Types Packs/Day Years Used Date Never Smoker Smokeless Tobacco: Never Used Alcohol Use Standard Drinks/Week Comments Yes 0 (1 standard drink = 0.6 oz pure alcoho l) Sex Assigned at Date Recorded Not on file documented as of this encounter Progress Notes Barbara Love - 12/05/2016 11:00 AM CDT SOAP Note objective information for 12/05/2016 Edema: Circumference (measured in cm) Small Date 11/25/2016 11/25/2016 12/05/16 Side R L R P1 4.9 4.5 5.1 IP 5.0 4.6 5.0 P2 4.3 4.0 4.7 AROM of Fingers AROM (PROM): Small Range of Motion Date 11/25/2016 12/05/16 Side R R MP ext -30 0 MP flex 95 85 PIP ext -25 -20 PIP flex 84 95 DIP ext -3 0 DIP flex 51 65 LOYA 172 225 Please refer to the daily flowsheet for treatment today, total treatment time and time spent performing 1:1 timed codes.? documented in this encounter Plan of Treatment Not on filedocumented as of this encounter Procedures Procedure Name Priority Date/Time Associated Diagnosis Comme nts [facility] MANUAL THER Routine 12/05/2016 12:00 PM Pain of finger of TECH,1+REGIONS,EA 15 MIN CDT right h and Finger stiffness, right Unspecified injury of right wrist, hand and finger(s), subsequent encounter [facility] NEUROMUSCULAR Routine 12/05/2016 12:00 PM Pain of finger o f RE-EDUCATION CDT right hand Finger stiffness, right Unspecified injury of right wrist, hand and finger(s), subsequent encounter documented in this encounter Visit Diagnoses Diagnosis Pain of finger of right hand Pain in limb Finger stiffness, right Unspecified injury of right wrist, hand and finger(s), subsequent encounter documented in this encounter
--- OUTSIDE RECORDS SUMMARY | 2021-11-07 09:31 | XMS_ITS | Encounter Summary ---
:1990 Author Organization [facility] Address [address] [place] [address]. [place] [address] Care Team Providers Name Role Phone Unavailable Primary Care Provider Unavailable Reason for Referral Consultation - Closed Specialty Diagnoses / Procedures Referred By Contact Refer red To Contact Diagnoses Cystic acne Lindsay Braxton MD [facility] [address] [facility] [place] [address] [facility] [address] [place] [address] Phone: Fax: Referral ID Status Reason Start Date Expiration Date Visits Requ ested Visits Authorized [id number] Closed 01/02/2016 01/01/2017 1 1 Reason for Visit Reason Comments Physical Flu Shot Encounter Details Date Type Department Care Team Description 01/02/2016 Office Visit [facility] Lindsay Braxton for routine adult health examination without abnormal findings (Primary Dx); Clinic Cullen Aguilar MD Cystic acne [address] [facility] [id number] [place] [address] 55 [address]44 [id number] [phone] Social History Tobacco Use Types Packs/Day Years Used Date Never Smoker Smokeless Tobacco: Never Used Alcohol Use Standard Drinks/Week Comments Yes 0 (1 standard drink = 0.6 oz pure alcoho l) Sex Assigned at Date Recorded Not on file documented as of this encounter Last Filed Vital Signs Vital Sign Reading Time Taken Comments Blood Pressure 120/70 01/02/2016 11:56 AM CDT Pulse 62 01/02/2016 11:56 AM CDT Temperature 37.1 ??C (98.7 ??F) 01/02/2016 11:56 AM CDT Respiratory Rate - - Oxygen Saturation 97% 01/02/2016 11:56 AM CDT Inhaled Oxygen Concentration - - Weight 65.3 kg (143 lb 14.4 oz) 01/02/2016 11:56 AM CDT Height 168.3 cm (5' 6.25) 01/02/2016 11:56 AM CDT Body Mass Index 23.05 01/02/2016 11:56 AM CDT documented in this encounter Patient Instructions Patient InstructionsLuba Salazar - 01/02/2016 11:41 AM CDT Preventive Health Recommendations Female Ages 18 to 25 Yearly exam: ??? See your health care provider every year in order to o Review health changes. o Discuss preventive care. o Review your medicines if your doctor has prescribed any. ??? You should be tested each year for STDs (sexually transmitted diseases). ??? After age 20, talk to your provider about how often you should have cholesterol testing. ??? Starting at age 21, get a Pap test every three years. If you have an abnormal result, your doctor may have you test more often. ??? If you are at risk for diabetes, you should have a diabetes test (fasting glucose). Shots: ??? Get a flu shot each year. ??? Get a tetanus shot every 10 years. ??? Consider getting the shot (vaccine) that prevents cervical cancer (Gardasil). Nutrition: ??? Eat at least 5 servings of fruits and vegetables each day. ??? Eat whole-grain bread, whole-wheat pasta and brown rice instead of white grains and rice. ??? Talk to your provider about Calcium and Vitamin D. Lifestyle ??? Exercise at least 150 minutes a week each week (30 minutes a day, 5 days a week). This will helpyou control your weight and prevent disease. ??? Limit alcohol to one drink per day. ??? No smoking. ??? Wear sunscreen to prevent skin cancer. ??? See your dentist every six months for an exam and cleaning. documented in this encounter Progress Notes Lindsay Braxton MD - 01/02/2016 11:41 AM CDT SUBJECTIVE: CC: Claudia Benoit is an 25 year old woman who presents for preventive health visit. Healthy Habits: ?? Do you get at least three servings of calcium containing foods daily (dairy, green leafy vegetables, etc.)? yes ?? Amount of exercise or daily activities, outside of work: 3-5 day(s) per week ?? Problems taking medications regularly No ?? Medication side effects: No ?? Have you had an eye exam in the past two years? no ?? Do you see a dentist twice per year? yes ?? Do you have sleep apnea, excessive snoring or daytime drowsiness?no Other concerns to address: Lump under the chin, feels pea-sized. Does not hurt, does not feel like it has grown in size. Acne - has tried topicals, oral abx - little help Has well women physical[facility] at [facility] Today's PHQ-2 Score: PHQ-2 (??1999 Pfizer) 01/02/2016 Q1: Little interest or pleasure in doing things 0 Q2: Feeling down, depressed or hopeless 0 PHQ-2 Score 0 Abuse: Current or Past(Physical, Sexual or Emotional)- No Do you feel safe in your environment - Yes Social History Substance Use Topics ??? Smoking status: Never Smoker ??? Smokeless tobacco: Never Used ??? Alcohol Use: 0.0 oz/week 0 Standard drinks or equivalent per week The patient does not drink >3 drinks per day nor >7 drinks per week. No results for input(s): CHOL, HDL, LDL, TRIG, CHOLHDLRATIO, NHDL in the last [id number] hours. Reviewed orders with patient. Reviewed health maintenance and updated orders accordingly - Yes Mammo Decision Support: Mammogram not appropriate for this patient based on age. Last Mammo:No results found. History of abnormal Pap smear: NO - age 21-29 PAP every 3 years recommended All Histories reviewed and updated in [facility]. ROS: C: NEGATIVE for fever, chills, change in weight I: NEGATIVE for worrisome rashes, moles or lesions E: NEGATIVE for vision changes or irritation ENT: NEGATIVE for ear, mouth and throat problems R: NEGATIVE for significant cough or SOB B: NEGATIVE for masses, tenderness or discharge CV: NEGATIVE for chest pain, palpitations or peripheral edema GI: NEGATIVE for nausea, abdominal pain, heartburn, or change in bowel habits : NEGATIVE for unusual urinary or vaginal symptoms. Periods are regular. M: NEGATIVE for significant arthralgias or myalgia N: NEGATIVE for weakness, dizziness or paresthesias P: NEGATIVE for changes in mood or affect Problem list, Medication list, Allergies, and Medical/Social/Surgical histories reviewed in EPIC andupdated as appropriate. OBJECTIVE: BP 120/70 mmHg Pulse 62 Temp(Src) 98.7 ??F (37.1 ??C) (Oral) Ht 5' 6.25 (1.683 m) Wt 143 lb14.4 oz (65.273 kg) BMI 23.04 kg/m2 SpO2 97% ? No EXAM: GENERAL: healthy, alert and no distress EYES: Eyes grossly normal to inspection, PERRL and conjunctivae and sclerae normal HENT: ear canals and TM's normal, nose and mouth without ulcers or lesions NECK: normal submandibular LN RESP: lungs clear to auscultation - no rales, rhonchi or wheezes CV: regular rate and rhythm, normal S1 S2, no S3 or S4, no murmur, click or rub, no peripheral edemaand peripheral pulses strong ABDOMEN: soft, nontender, no hepatosplenomegaly, no masses and bowel sounds normal MS: no gross musculoskeletal defects noted, no edema SKIN: no suspicious lesions or rashes NEURO: Normal strength and tone, mentation intact and speech normal PSYCH: mentation appears normal, affect normal/bright ASSESSMENT/PLAN: 1. Encounter for routine adult health examination without abnormal findings - UTD with pap - UTD with Gardasil - flu shot today 2. Cystic acne: Suggested Accutane, already on BC. - DERMATOLOGY REFERRAL COUNSELING: Reviewed preventive health counseling, as reflected in patient instructions Lindsay Braxton MD [facility] Injectable Influenza Immunization Documentation 1. Is the person to be vaccinated sick today? No 2. Does the person to be vaccinated have an allergy to eggs or to a component of the vaccine? No 3. Has the person to be vaccinated today ever had a serious reaction to influenza vaccine in the past? No 4. Has the person to be vaccinated ever had Guillain-Grand [place] syndrome? No Form completed by [employer] documented in this encounter Nursing Notes Luba Salazar - 01/02/2016 11:57 AM CDT Chief Complaint Patient presents with ??? Physical Initial BP 120/70 mmHg Pulse 62 Temp(Src) 98.7 ??F (37.1 ??C) (Oral) Ht 5' 6.25 (1.683 m) Wt 143 lb 14.4 oz (65.273 kg) BMI 23.04 kg/m2 SpO2 97% ? No Estimated body mass index is 23.04 kg/(m^2) as calculated from the following: Height as of this encounter: 5' 6.25 (1.683 m). Weight as of this encounter: 143 lb 14.4 oz (65.273 kg). BP completed using cuff size: regular right arm [employer] Kong documented in this encounter Plan of Treatment Scheduled Referrals Name Type Priority Associated Diagnoses Order S [facility] DERMATOLOGY REFERRAL Referral Routine Cystic acne Ordered : 01/02/2016 documented as of this encounter Visit Diagnoses Diagnosis Encounter for routine adult health exami [facility] without abnormal findings - Primary Cystic acne Other acne documented in this encounter
[2021-11-07 14:24] LABS: HCG Quantitative* < 2.39 mIU/mL
== END 2021-11-07 09:28 | disposition home or self-care (01) ==
LOC: NFLDREF 09:28
PROVIDERS: PCP Nurse Practitioner Family; Visit Provider Advanced Practice Midwife
DX: Z32.00 Encounter for pregnancy test, result unknown (principal)
CPT/HCPCS: 84702

== ENCOUNTER 2021-11-14 10:40 | Outpatient (CLI) | payer MEDICAID, SELFPAY ==
--- OUTSIDE RECORDS SUMMARY | 2021-11-14 10:43 | XMS_ITS | Encounter Summary ---
:1990 Author Organization [facility] Address [address] [place] [address] Care Team Providers Name Role Phone Lindsay Braxton MD Primary Care Provider [phone] Tayla Mondragon HOSPITALITY HOST Unavailable Encounter Details Date Type Department Care Team Description 11/10/2017 E-Visit [facility] Lindsay Braxton (Primary Clinic Cullen Aguilar MD Dx) [address] [facility] [address] [place], [place] [address] [phone] Social History Tobacco Use Types Packs/Day Years [...] giddiness documented in this encounter Care Teams Patient Monitor Relationship Specialty Start Date End Date Lindsay Braxton MD PCP - General Family Practice 02/25/17 [address] [place], [place] [id number] Tayla Mondragon NP PCP - Assigned PCP 03/01/17 02/27/18 [facility] [address] [place] [address] documented as of this encounter
--- OUTSIDE RECORDS SUMMARY | 2021-11-14 10:43 | XMS_ITS | Encounter Summary ---
:1990 Author Organization [facility] Address [facility] [place] [address] Care Team Providers Name Role Phone Lindsay Braxton MD Primary Care Provider [phone] Reason for Visit Reason Comments Numbness Encounter Details Date Type Department Care Team Description 02/25/2017 Office Visit [facility] Tayla Mondragon, Neal rge of breast (Primary Dx); Clinic [place] FIRER ELECTRIC LOCOMOTIVE Bilateral carpal tunnel syndrome [address] [facility] [address] [phone] [place], [place] [address] Social History Tobacco Use Types Packs/Day Years Used Date Never Smoker Smokeless Tobacco: Never Used Alcohol Use Standard Drinks/Week Comments Yes 0 (1 standard drink = 0.6 oz pure alcoho l) Sex Assigned at Date Recorded Not on file documented as of this encounter Last Filed Vital Signs Vital Sign Reading Time Taken Comments Blood Pressure 122/70 02/25/2017 1:02 PM PACKING AND STAMPING MACHINE OPERATOR Pulse 76 02/25/2017 1:02 PM PACKING AND STAMPING MACHINE OPERATOR Temperature 36.7 ??C (98 ??F) 02/25/2017 1:02 PM PACKING AND STAMPING MACHINE OPERATOR Respiratory Rate 16 02/25/2017 1:02 PM PACKING AND STAMPING MACHINE OPERATOR Oxygen Saturation 99% 02/25/2017 1:02 PM PACKING AND STAMPING MACHINE OPERATOR Inhaled Oxygen Concentration - - Weight 74.8 kg (165 lb) 02/25/2017 1:02 PM PACKING AND STAMPING MACHINE OPERATOR Height 169.5 cm (5' 6.75) 02/25/2017 1:02 PM PACKING AND STAMPING MACHINE OPERATOR Body Mass Index 26.04 02/25/2017 1:02 PM PACKING AND STAMPING MACHINE OPERATOR documented in this encounter Progress Notes Tayla Mondragon NP - 02/25/2017 1:00 PM CST SUBJECTIVE: Claudia Benoit is a 26 year old female who presents to clinic today for the following health issues: Here with concerns about carpal tunnel .Has been seen by Dr. Cerna at [facility]. Had an EMG yesterday and the [facility] recommended that she have her vitamins, minerals, and lyme disease screening. Has been wearing the braces recommended by Dr. Braxton and they have been very helpful in managing her symptoms. Has ongoing joint pain with numbness in both of her great toes. Has discharge from her breasts as well. Is requesting a prolactin level as well. Has talked to her Chargeback Specialist about this as well. Complaining of breast [...] be within normal limits. Tayla Mondragon NP [facility] ING AND STAMPING MACHINE OPERATOR documented in this encounter Nursing Notes Pravin [...] kg). Medication Reconciliation: complete Pravin [place] [facility]MA ING AND STAMPING MACHINE OPERATOR documented in this encounter Plan of Treatment Not on filedocumented as of this encounter Procedures Procedure Name Priority Date/Time Associated Comments Diagnosis LYME DISEASE TOTAL ABS Routine 02/25/2017 1:30 PM Bilateral ca rpal Results for this BLD WITH REFLEX TO PACKING AND STAMPING MACHINE OPERATOR tunnel syndrome proced ure are in CONFIRM CLIA the results section. VITAMIN D DEFICIENCY Routine 02/25/2017 1:30 PM Bilateral carp al Results for this SCREENING PACKING AND STAMPING MACHINE OPERATOR tunnel syndrome procedure ar e in the results section. PROLACTIN Routine 02/25/2017 1:30 PM Discharge of breast Re sults for this PACKING AND STAMPING MACHINE OPERATOR procedure are i n the results section. CRP INFLAMMATION Routine 02/25/2017 1:30 PM Bilateral carpal R esults for this PACKING AND STAMPING MACHINE OPERATOR tunnel syndrome procedure ar e in the results section. COMPREHENSIVE Routine 02/25/2017 1:30 PM Bilateral carpal Resu lts for this METABOLIC PANEL PACKING AND STAMPING MACHINE OPERATOR tunnel syndrome procedure are in the results section. VITAMIN B12 Routine 02/25/2017 1:30 PM Bilateral carpal Resul ts for this PACKING AND STAMPING MACHINE OPERATOR tunnel syndrome procedure ar e in the results section. documented in this encounter Results Prolactin (02/25/2017 1:30 PM PACKING AND STAMPING MACHINE OPERATOR) athologist [facility] Prolactin 9 3 - 27 ug/L 02/25/2017 [facility] 7:09 PM [facility] Comment: Reference ranges apply to non-p regnant females only. Specimen Anatomical Collection Method Collection Time Receive d Time (Source) Location / / Volume Laterality Blood specimen 02/25/2017 1:30 PM 017 1:31 (specimen) PACKING AND STAMPING MACHINE OPERATOR PM PACKING AND STAMPING MACHINE OPERATOR Tayla Mondragon NP LAB - BLOOD ORDERABLES Performing Organization Address City/[facility]/ZIP Code Phon e Number [address] Lyme Disease Silvia with reflex to WB Serum (02/25/2017 1:30 PM PACKING AND STAMPING MACHINE OPERATOR) athologist [facility] Lyme Disease 0.03 0.00 - 02/26/2017 [facility] 0.89 12:13 PM [facility] Comment: Negative, Absence of detectable Borrelia burdorferi antibodies. A negative result does not exclude the possibility of Borrelia burgdorferi infection. If early Lyme disease is suspected, a secon d sample should be collected and tested 2 to 4 weeks later. Specimen Anatomical Collection Method Collection Time Receive d Time (Source) Location / / Volume Laterality Blood specimen 02/25/2017 1:30 PM 017 1:31 (specimen) PACKING AND STAMPING MACHINE OPERATOR PM PACKING AND STAMPING MACHINE OPERATOR Tayla Mondragon NP LAB - BLOOD ORDERABLES Performing Organization Address City/[facility] Phon e Number [address] (ABNORMAL) Comprehensive metabolic panel (02/25/2017 1:30 PM PACKING AND STAMPING MACHINE OPERATOR) athologist [facility] Sodium 140 133 - 144 02/26/2017 [facility] mmol/L 8:16 AM [facility] Potassium 3.7 3.4 - 5.3 02/26/2017 [facility] mmol/L 8:16 AM [facility] Chloride 106 94 - 109 02/26/2017 [facility] mmol/L 8:16 AM [facility] Carbon Dioxide 26 20 - 32 02/26/2017 [facility] mmol/L 8:[address] [facility] [facility] Anion Gap 8 3 - 14 02/26/2017 [facility] mmol/L 8:16 AM [facility] Glucose 80 70 - 99 02/26/2017 [facility] mg/dL 8:16 AM [facility] Urea Nitrogen 20 7 - 30 02/26/2017 [facility] mg/dL 8:16 AM [facility] Creatinine 0.68 0.52 - 02/26/2017 [facility] 1.04 mg/dL 8:16 AM [facility] GFR Estimate >90 >60 02/26/2017 [place] mL/min/1.7 8:[address] Comment: Non GFR Calc GFR Estimate If >90 >60 mL/min/1.7m2 02/26/2017 8:16 A M [facility] Black [facility] Comment: GFR Calc Calcium 9.0 8.5 - 10.1 02/26/2017 8:16 AM [facility] mg/dL [facility] Bilirubin Total 0.3 0.2 - 1.3 02/26/2017 8:16 AM [facility] mg/dL [facility] Albumin 3.9 3.4 - 5.0 g/dL 02/26/2017 8:16 AM [facility] Protein Total 7.3 6.8 - 8.8 g/dL 02/26/2017 8:17 AM [facility] Alkaline Phosphatase 37 (L) 40 - 150 U/L 02/26/2017 8:17 AM [facility] ALT 31 0 - 50 U/L 02/26/2017 8:16 AM [facility] AST 18 0 - 45 U/L 02/26/2017 8:16 AM INDEX [facility] [place] Specimen Anatomical Collection Method Collection Time Receive d Time (Source) Location / / Volume Laterality Blood specimen 02/25/2017 1:30 PM 017 1:31 (specimen) PACKING AND STAMPING MACHINE OPERATOR PM PACKING AND STAMPING MACHINE OPERATOR Tayla Mondragon FIRER ELECTRIC LOCOMOTIVE LAB - BLOOD ORDERABLES Performing Organization Address City/State/ZIP Code Phon e Number [facility] [address] [place] [address] CRP inflammation (02/25/2017 1:30 PM PACKING AND STAMPING MACHINE OPERATOR) Analysis Performed At Patho logist Time Signature CRP Inflammation <2.9 0.0 - 8.0 02/25/2017 [facility] mg/L 7:00 PM PACKING AND STAMPING MACHINE OPERATOR [facility] Specimen Anatomical Collection Method Collection Time Receive d Time (Source) Location / / Volume Laterality Blood specimen 02/25/2017 1:30 PM 017 1:31 (specimen) PACKING AND STAMPING MACHINE OPERATOR PM PACKING AND STAMPING MACHINE OPERATOR Tayla Mondragon NP LAB - BLOOD ORDERABLES Performing Organization Address City/State/ZIP Code Phon e Number [facility] [address] [place] [address] [facility] Vitamin B12 (02/25/2017 1:30 PM PACKING AND STAMPING MACHINE OPERATOR) P athologist Signature Vitamin B12 832 193 - 956 02/25/2017 [facility] pg/mL 7:28 PM PACKING AND STAMPING MACHINE OPERATOR [facility] Specimen Anatomical Collection Method Collection Time Receive d Time (Source) Location / / Volume Laterality Blood specimen 02/25/2017 1:30 PM 017 1:31 (specimen) PACKING AND STAMPING MACHINE OPERATOR PM PACKING AND STAMPING MACHINE OPERATOR Tayla Mondragon FIRER ELECTRIC LOCOMOTIVE LAB - BLOOD ORDERABLES Performing Organization Address City/State/ZIP Code Phon e Number [facility] [address] [place] [address] [facility] Vitamin D Deficiency (02/25/2017 1:30 PM PACKING AND STAMPING MACHINE OPERATOR) P athologist Signature Vitamin D 23 20 - 75 02/26/2017 [facility] Deficiency ug/L 10:17 AM PACKING AND STAMPING MACHINE OPERATOR [facility] Comment: Season, race, dietary intake, and treatm ent affect the concentration of 60-aotarfk-Nqhexgd D. Values may decreas e during winter [...] specimen 02/25/2017 1:30 PM 017 1:31 (specimen) PACKING AND STAMPING MACHINE OPERATOR PM PACKING AND STAMPING MACHINE OPERATOR Tayla Mondragon NP LAB - BLOOD ORDERABLES Performing Organization Address City/State/ZIP Code Phon e Number [facility] [address] documented in this encounter Visit Diagnoses Diagnosis Discharge of breast - Primary Other sign and symptom in breast Bilateral carpal tunnel syndrome Carpal tunnel syndrome documented in this encounter Care Teams Access Services Assistant Relationship Specialty Start Date End Date Lindsay Braxton MD PCP - General Family Practice 02/25/17 [address] [place] [address] documented as of this encounter
--- OUTSIDE RECORDS SUMMARY | 2021-11-14 10:43 | XMS_ITS | Encounter Summary ---
:1990 Author Organization [place] Address [address] [place] [address]. [place] [address] Care Team Providers Name Role Phone Lindsay Braxton MD Primary Care Provider [phone] Tayla Mondragon NP Unavailable Reason for Referral JOSE Physical Therapy - Closed Specialty Diagnoses / Procedures Referred By Contact Refer red To Contact Diagnoses Bilateral carpal tunnel syndrome Rodrigo Kirby DO [facility] [address] [facility] [address] [place] [address] Referral ID Status Reason Start Date Expiration Date Visits Requ ested Visits Authorized [id number] Closed 10/28/2017 03/29/2018 40 38 Reason for Visit Reason Comments Hand Pain numbness, Consultation - Closed Specialty Diagnoses / Procedures Referred By Contact Refer red To Contact Orthopedics and Sports Diagnoses Right elbow pain Tayla Mondragon NP [facility] ORTHOPEDIC CL [facility] [address] [address] [place] [address] [address] [place] [address] Phone: Fax: Referral ID Status Reason Start Date Expiration Date Visits Requ ested Visits Authorized [id number] Closed 10/12/2017 10/12/2018 1 1 Encounter Details Date Type Department Care Team Description 10/28/2017 Office Visit [facility] Rodrigo Kirby Bi lateral carpal Sports Medicine DO tunnel syndrome Clinic [facility] (Primary Dx) [address] [facility] SPORTS MED [address] [address] [place] [address] [facility] [address] [place], [place] [address] (Wo rk) Social History Tobacco Use Types [...] Pressure 112/72 10/28/2017 9:11 AM CDT Pulse - - Temperature - - Respiratory Rate - - Oxygen Saturation - - Inhaled Oxygen Concentration - - Weight 77.1 kg (170 lb) 10/28/2017 9:11 AM CDT Height 167.6 cm (5' 6) 10/28/2017 9:11 AM CDT Body Mass Index 27.44 10/28/2017 9:11 AM CDT documented in this encounter Patient Instructions Patient InstructionsRodrigo Kirby DO - 10/28/2017 9:00 AM CDT 1. Bilateral carpal tunnel syndrome Hand therapy: [facility] - [phone] Reviewed EMG - confirms bilateral carpal tunnel syndrome, left worse than right Use brace at work as needed and at night If not improved with hand therapy can consider cortisone injections Can also consider surgery if desired / not improving with therapy and injections. Mini-open or US guided release ([employer]) Follow up after 4-6 therapy sessions if not improved or at any point if you want to proceed with an injection. documented in this encounter Progress Notes Rodrigo Kirby DO - 10/28/2017 9:00 AM CDT Images from the original note were not included. ASSESSMENT & PLAN 1. Bilateral carpal tunnel syndrome Hand therapy: [facility] - [phone] Reviewed previous EMG - confirms bilateral carpal tunnel syndrome, left worse than right Use brace at work as needed and at night If not improved with hand therapy can consider cortisone injections Can also consider surgery if desired / not improving with therapy and injections. Mini-open or US guided release ([employer] - MicroKnife) Follow up after 4-6 therapy sessions if not improved or at any point if you want to proceed with an injection. ----- SUBJECTIVE Claudia Benoit is a/an 26 year old Right handed female who is seen in consultation at the request of Tayla Mondragon N.P. for evaluation of bilateral wrist pain. The patient is seen by themselves. Onset: 1 month(s) ago. Reports insidious onset without acute precipitating event. Location of Pain: bilateral hand/ wrist numbness intermittently Rating of Pain at worst: 8/10, weights up at night Rating of Pain Currently: 3/10 Worsened by: position, computer use, driving, sleeping Better with: position changes, Treatments tried: ice, Ibu , Tylenol Associated symptoms: numbness, tingling and weakness of hands bilaterally Orthopedic history: YES - Date: 2017, left ankle fracture with surgery Relevant surgical history: NO Patient Social History: works at [employer] Patient's past medical, surgical, social, and family histories were reviewed today and no changes are noted. REVIEW OF SYSTEMS: 10 point ROS is negative other than symptoms noted above in HPI, Past Medical History or as stated below Constitutional: NEGATIVE for fever, chills, change in weight Skin: NEGATIVE for worrisome rashes, moles or lesions GI/: NEGATIVE for bowel or bladder changes Neuro: NEGATIVE for weakness, dizziness or paresthesias OBJECTIVE: BP 112/72 (BP Location: Right arm, Patient Position: Chair, Cuff Size: Adult Regular) Ht 5' 6 (1.676 m) Wt 170 lb (77.1 kg) BMI 27.44 kg/m2 General: healthy, alert and in no distress HEENT: no scleral icterus or conjunctival erythema Skin: no suspicious lesions or rash. No jaundice. CV: regular rhythm by palpation Resp: normal respiratory effort without conversational dyspnea Psych: normal mood and affect Gait: normal steady gait with appropriate coordination and balance Neuro: Decreased sensation over median distribution. Reduced 2 pt discrimination, left > right MSK: BILATERAL WRIST Inspection: No swelling, no atrophy Palpation: Tender about the diffusely around the wrist. Remainder of bony and ligamentous line gonzalez are nontender. Range of Motion: Full at the wrist and fingers but feels tight Strength: Propulsion Machinery Service Engineer strength full. Normal pinch strength. Special Tests: Positive: Phalen's Independent visualization of the below image: [facility] EMG 02/24/17 Patient's conditions were thoroughly discussed during today's visit with greater than 50% of the visit spent counseling the patient with total time spent [id number] with the patient being 15 minutes. Rodrigo Kirby DO [facility] documented in this encounter Plan of Treatment Scheduled Referrals Name Type Priority Associated Diagnoses Order S chedule JOSE PT, HAND, AND Referral Routine Bilateral carpal Ordere d: 10/28/2017 CHIROPRACTIC REFERRAL tunnel syndrome documented as of this encounter Visit Diagnoses Diagnosis Bilateral carpal tunnel syndrome - Prima ry Carpal tunnel syndrome documented in this encounter Care Teams Payroll And Benefits Analyst Relationship Specialty Start Date End Date Lindsay Braxton MD PCP - General Family Practice 02/25/17 [address] [place] [address] Tayla Mondragon NP PCP - Assigned PCP 03/01/17 02/27/18 [facility] [address] [place] [address] documented as of this encounter
--- OUTSIDE RECORDS SUMMARY | 2021-11-14 10:43 | XMS_ITS | Encounter Summary ---
:1990 Author Organization [facility] [place] Address [address] [place] [address] Care Team Providers Name Role Phone No Ref-Primary, Physician Primary Care Provider [phone] Reason for Visit Reason Onset Date Comments Hand Pain 02/06/2017 Encounter Details Date Type Department Care Team Description 02/06/[address] [facility] None Hand Pain [address] [place] [address] Social History Tobacco Use [...] through out the day. 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 Advised to be seen in clinic for this. Appt with Dr. SALTER at today at 8 am. Pt expressed understanding and acceptance of the plan. Pt had no further questions at this time. Advised can call back to clinic at any time with concerns. Clotilde Page, RN NING ROOM ATTENDANT documented in this encounter Plan of Treatment Not on filedocumented as of this encounter Visit Diagnoses Not on filedocumented in this encounter Care Teams Laser Beam Machine Operator Relationship Specialty Start Date End Date No Ref-Primary, Physician PCP - General 02/06/17 02/24/17 documented as of this encounter
--- OUTSIDE RECORDS SUMMARY | 2021-11-14 10:43 | XMS_ITS | Encounter Summary ---
:1990 Author Organization [facility] Address [address] [place] [address] Care Team Providers Name Role Phone No Ref-Primary, Physician Primary Care Provider [phone] Reason for Visit Reason Comments Nerve Pain Encounter Details Date Type Department Care Team Description 02/14/2017 [facility] Emergency Dep t tunnel syndrome [address] [facility] [place] [address] [facility] [phone] [place], [place] [address] (Wo rk) Social History [...] Comments Blood Pressure 136/93 02/14/2017 3:56 PM HOSPITALITY DIRECTOR Pulse 68 02/14/2017 3:56 PM HOSPITALITY DIRECTOR Temperature 36.2 ??C (97.1 ??F) 02/14/2017 3:56 PM HOSPITALITY DIRECTOR Respiratory Rate 18 02/14/2017 3:56 PM HOSPITALITY DIRECTOR Oxygen Saturation 100% 02/14/2017 3:56 PM HOSPITALITY DIRECTOR Inhaled Oxygen Concentration - - Weight - - Height - - Body Mass Index - - documented in this encounter Discharge Instructions Discharge InstructionsValeria Arciniega MD - 02/14/2017 4:19 PM HOSPITALITY DIRECTOR Images from the original note were not [...] bent back when typing. ?? You may use??[id number]-biflxeh pain medicine to treat pain and inflammation, [...] or weak Date Last Reviewed: 02/19/2015 ?? [phone] [employer]. [address] [place] [address]. All rights reserved. This information is not [...] includes extended or twisted positions. Watch your business continuity specialist Don???t just use your thumb and index [...] better position. Date Last Reviewed: 12/08/2014 ?? [phone] [employer]. [address] [place] [address]. All rights reserved. This information is not intended as a substitute for professional medical care. Always follow your healthcare professional's instructions. ITALITY DIRECTOR documented in this encounter Medications at Time [...] tunnel. Pt c/o increased nerve pain today. ITALITY DIRECTOR Valeria Arciniega MD - 02/14/2017 3:47 PM [...] provider's statements to me. Pam Zarate 02/14/2017 [facility] EMERGENCY DEPARTMENT Valeria Arciniega MD 02/15/17 0254 ITALITY DIRECTOR documented in this encounter Plan of Treatment Not on filedocumented as of this encounter Visit Diagnoses Diagnosis Bilateral carpal tunnel syndrome Carpal tunnel syndrome documented in this encounter Administered Medications Inactive Administered Medications - up to 3 most recent administrations Medication Order MAR Action Action Date Dose Rate Site HYDROcodone-acetaminophen Given 02/14/2017 4:26 PM HOSPITALITY DIRECTOR 1 tablet (NORCO) 5-325 MG per tablet 1 tablet 1 tablet, Oral, ONCE, On 02/14/17 at 1620, For 1 dose, Maximum acetaminophen dose from all sources= 75 mg/kg/day not to exceed 4 grams documented in this encounter Active and Recently Administered Medications Times are shown in HOSPITALITY DIRECTOR. Scheduled Medication Order 02/12/2017 02/13/2017 02/14/2017 HYDROcodone-acetaminophen (NORCO) 5-325 MG per tablet 1 tablet ( COMPLETED) 1626 (Given - Provider: Jef Ellenson, RN) 1 tablet, Oral, ONCE, On 02/14/17 at 1620, For 1 dose, Maximum acetaminophen dose from all sources= 75 mg/kg/day not to exceed 4 grams documented in this encounter Care Teams Field Foreman Relationship Specialty Start Date End Date No Ref-Primary, Physician PCP - General 02/06/17 02/24/17 documented as of this encounter
--- OUTSIDE RECORDS SUMMARY | 2021-11-14 10:43 | XMS_ITS | Encounter Summary ---
:1990 Author Organization [place] [facility] Address [address] [place] [address]. [place] [address] Care Team Providers Name Role Phone Lindsay Braxton MD Primary Care Provider [phone] Tayla Mondragon SENIOR SAS DEVELOPER Unavailable Reason for Visit Reason Comments Urgent Care URI Encounter Details Date Type Department Care Team Description 04/25/[address] [facility] Logan Jordan, Inborn error of amino Urgent Care Rosio hill MD acid metabolism (H) [address] [address] [address] [facility] (Primary Dx[facility] [place] [id number] Social History Tobacco Use Types Packs/Day Years Used Date Never Smoker Smokeless Tobacco: Never Used Alcohol Use Standard Drinks/Week Comments Yes 0 (1 standard drink = 0.6 oz pure alcoho l) Sex Assigned at Date Recorded Not on file documented as of this encounter Progress Notes Logan Jordan MD - 04/25/2017 3:15 PM CST Err TRY VACCINATOR documented in this encounter Plan of Treatment Not on filedocumented as of this encounter Visit Diagnoses Diagnosis 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
--- OUTSIDE RECORDS SUMMARY | 2021-11-14 10:43 | XMS_ITS | Encounter Summary ---
:1990 Author Organization [facility] Address [address] [place] [address]. [place] [address] Care Team Providers Name Role Phone Unavailable Primary Care Provider Unavailable Reason for Visit Reason Comments Musculoskeletal Problem Encounter Details Date Type Department Care Team Description 10/01/2016 Office Visit [facility] Lindsay Braxton Finger injury, right, Clinic Cullen Aguilar MD initial encounter [address] [facility] [address] [facility] (Primary Dx) [place], [place] [address] [phone] Social History Tobacco Use Types Packs/Day Years [...] G/E 2 Views; Future Lindsay Braxton MD [facility] documented in this encounter Nursing Notes [...]
--- OUTSIDE RECORDS SUMMARY | 2021-11-14 10:43 | XMS_ITS | Encounter Summary ---
:1990 Author Organization [facility] Address [address] [place] [address] Care Team Providers Name Role Phone Unavailable Primary Care Provider Unavailable Reason for Visit Reason Comments Other scratch to upper lip and nos e by a kitten at work today Work Comp Encounter Details Date Type Department Care Team Description 04/20/2014 Office Visit [facility] Hamilton Coffey, Yelena kingston te, initial Urgent Care Pablo SCOTT encounter (Primary Dx) [address] [place] [address] [phone] Social History Tobacco Use Types Packs/Day Years Used Date Never Smoker Smokeless Tobacco: Never Used Alcohol Use Standard Drinks/Week Comments Not Asked 0 (1 standard drink = 0.6 oz pure alcoho l) Sex Assigned at Date Recorded Not on file documented as of this encounter Last Filed Vital Signs Vital Sign Reading Time Taken Comments Blood Pressure 110/70 04/20/2014 2:51 PM INCOME TAX EXPERT Pulse - - Temperature 37.2 ??C (99 ??F) 04/20/2014 2:51 PM INCOME TAX EXPERT Respiratory Rate - - Oxygen Saturation - - Inhaled Oxygen Concentration - - Weight 74.8 kg (165 lb) 04/20/2014 2:51 PM INCOME TAX EXPERT Height 167.6 cm (5' 6) 04/20/2014 2:51 PM INCOME TAX EXPERT Body Mass Index 26.63 04/20/2014 2:51 PM INCOME TAX EXPERT documented in this encounter Progress Notes Hamilton [...] Follow up as needed See orders in [facility] ME TAX EXPERT documented in this encounter Nursing Notes Kamla [...] completed using cuff size: doug Shah LPN ME TAX EXPERT documented in this encounter Plan of Treatment Not on filedocumented as of this encounter Visit Diagnoses Diagnosis Cat bite, initial encounter - Primary documented in this encounter
--- OUTSIDE RECORDS SUMMARY | 2021-11-14 10:43 | XMS_ITS | Encounter Summary ---
:1990 Author Organization [place] Address [address] [place] [address] Care Team Providers Name Role Phone Lindsay Braxton MD Primary Care Provider [phone] Tayla Mondragon PAYMENT MANAGER Unavailable Reason for Visit JOSE Physical Therapy - Closed Specialty Diagnoses / Procedures Referred By Contact Refer red To Contact Diagnoses Bilateral carpal tunnel syndrome Rodrigo Kirby DO [facility] [id number] [place] [address] Referral ID Status Reason Start Date Expiration Date Visits Requ ested Visits Authorized [id number] Closed 10/28/2017 03/29/2018 40 38 Encounter Details Date Type Department Care Team Description 11/18/[address] [facility] Miko, Bilateral carpal tunnel syndrome (Primary Dx); Rehabilitation Services LIBERTY Jones Bilateral hand pain [facility] [address] [address] [place] [address] [phone] Social History Tobacco Use Types Packs/Day Years [...] limb documented in this encounter Care Teams Product Sales Engineer Relationship Specialty Start Date End Date Lindsay Braxton MD PCP - General Family Practice 02/25/17 [address] [place] [address] Tayla Mondragon NP PCP - Assigned PCP 03/01/17 02/27/18 [facility] [address] [place] [address] documented as of this encounter
--- OUTSIDE RECORDS SUMMARY | 2021-11-14 10:43 | XMS_ITS | Encounter Summary ---
:1990 Author Organization [facility] Address [address] [place] [address] Care Team Providers Name Role Phone Lindsay Braxton MD Primary Care Provider [phone] Tayla Mondragon CONTROL AREA OPERATOR Unavailable Reason for Visit JOSE Physical Therapy - Closed Specialty Diagnoses / Procedures Referred By Contact Refer red To Contact Diagnoses Bilateral carpal tunnel syndrome Rodrigo Kirby DO [facility] [address] [facility] [address] [place] [address] Referral ID Status Reason Start Date Expiration Date Visits Requ ested Visits Authorized [id number] Closed 10/28/2017 03/29/2018 40 38 Encounter Details Date Type Department Care Team Description 11/27/2017 Therapy Visit [facility] Barbara Love Bilate ral hand pain; Rehabilitation Services OT Bilateral carpal tunnel syndrome [facility] [address] [facility] [address] [address] [place], [place] [address] [address] [place] [address] [phone] Social History Tobacco Use Types Packs/Day Years [...] syndrome documented in this encounter Care Teams Carrier Driver Relationship Specialty Start Date End Date Lindsay Braxton MD PCP - General Family Practice 02/25/17 [address] [facility] [place] [address] Tayla Mondragon NP PCP - Assigned PCP 03/01/17 02/27/18 [facility] [address] [place] [address] documented as of this encounter
--- OUTSIDE RECORDS SUMMARY | 2021-11-14 10:43 | XMS_ITS | Encounter Summary ---
:1990 Author Organization [place] Address [address] [place] [address]. [place] [address] Care Team Providers Name Role Phone Unavailable Primary Care Provider Unavailable Reason for Referral JOSE Physical Therapy - Closed Specialty Diagnoses / Procedures Referred By Contact Refer red To Contact Diagnoses Hand injury, right, subsequent encounter Tayla Mondragon, INDUSTRY ANALYST [facility] [address] [place] [address] [place] [address] Phone: [phone] Referral ID Status Reason Start Date Expiration Date Visits Requ ested Visits Authorized [id number] Closed 11/15/2016 11/15/2017 1 1 Reason for Visit Reason Comments Finger pinky finger rt hand x 3-4 weeks Encounter Details Date Type Department Care Team Description 11/15/2016 Office Visit [facility] Tayla Mondragon, Hand i njury, right, Clinic [place] INDUSTRY ANALYST subsequent encounter [address] [facility] (Primary Dx) [facility] [address] [phone] [place], [place] [address] Social History Tobacco Use [...] HAND, AND CHIROPRACTIC REFERRAL Tayla Mondragon NP [facility] documented in this encounter Nursing Notes Sara [...]
--- OUTSIDE RECORDS SUMMARY | 2021-11-14 10:43 | XMS_ITS | Encounter Summary ---
:1990 Author Organization [place] Address [address] [place] [address] Care Team Providers Name Role Phone Unavailable Primary Care Provider Unavailable Reason for Visit Reason Comments Cat Bite c/o cat bite on right 5th fi nger during work this morning. Cat is up to date on vaccination's. Work Comp Encounter Details Date Type Department Care Team Description 03/15/2015 Office Visit [facility] Hamilton Coffey, Cat bi te of hand, Urgent Care Pablo SCOTT right, initial [address] encounter (Primary Dx) [place] [address] [phone] Social History Tobacco Use Types Packs/Day Years Used Date Never Smoker Smokeless Tobacco: Never Used Alcohol Use Standard Drinks/Week Comments Not Asked 0 (1 standard drink = 0.6 oz pure alcoho l) Sex Assigned at Date Recorded Not on file documented as of this encounter Last Filed Vital Signs Vital Sign Reading Time Taken Comments Blood Pressure 130/76 03/15/2015 12:13 PM THERMOMETER MAKER Pulse 57 03/15/2015 12:13 PM THERMOMETER MAKER Temperature 36.7 ??C (98.1 ??F) 03/15/2015 12:13 PM THERMOMETER MAKER Respiratory Rate - - Oxygen Saturation - - Inhaled Oxygen Concentration - - Weight 76.7 kg (169 lb) 03/15/2015 12:13 PM THERMOMETER MAKER Height - - Body Mass Index 27.28 04/20/2014 2:51 PM THERMOMETER MAKER documented in this encounter Progress Notes Hamilton [...] encounter S61.451A Multiple Vitamins- Minerals (MULTIVITAMIN PO) [place]-3 Fatty Acids (FISH OIL PO) amoxicillin-clavulanate (AUGMENTIN) 875-125 MG per tablet TD (PRESERVE FREE, AGE 7+) [42679.002] Td updated Work comp letter written for patient MOMETER MAKER documented in this encounter Nursing Notes Jose [...] Jose Malik on 03/15/2015 at 12:48 PM. MOMETER MAKER Jose Malik MA - 03/15/2015 12:14 PM [...] using cuff size regular A. ANNY Malik MOMETER MAKER documented in this encounter Plan of Treatment Not on filedocumented as of this encounter Visit Diagnoses Diagnosis Cat bite of hand, right, initial encount er - Primary documented in this encounter
--- OUTSIDE RECORDS SUMMARY | 2021-11-14 10:43 | XMS_ITS | Encounter Summary ---
:1990 Author Organization [place] Address [facility] [place] [place] [address] Care Team Providers Name Role Phone Lindsay Braxton MD Primary Care Provider [phone] Tayla Mondragon TELECOM ASSISTANT Unavailable Reason for Visit Reason Comments Elbow right Encounter Details Date Type Department Care Team Description 10/06/2017 Office Visit [facility] Tayla Mondragon, Elbow pain, right (Primary Dx); [facility] TELECOM ASSISTANT Cervicalgia [address] [facility] [address] [phone] [place] [address] Social History Tobacco Use Types Packs/Day [...] in this encounter Progress Notes Tayla Mondragon, TELECOM ASSISTANT - 10/06/2017 8:15 AM CDT SUBJECTIVE: Claudia [...] is concerned about possible fracture. 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 Good software configuration specialist strength. Slight bruising noted. SKIN: no suspicious [...] improve, referral to orthopedics. Tayla Mondragon NP [facility] documented in this encounter Plan of Treatment Not on filedocumented as of this encounter Visit Diagnoses Diagnosis Elbow pain, right - Primary Pain in joint, upper arm Cervicalgia documented in this encounter Care Teams Deburrer Relationship Specialty Start Date End Date Lindsay Braxton MD PCP - General Family Practice 02/25/17 [address] [place] [address] Tayla Mondragon NP PCP - Assigned PCP 03/01/17 02/27/18 [facility] [address] [place] [address] documented as of this encounter
--- OUTSIDE RECORDS SUMMARY | 2021-11-14 10:43 | XMS_ITS | Encounter Summary ---
:1990 Author Organization [facility] Address [address] [place] [address]. [place] [address] Care Team Providers Name Role Phone Unavailable Primary Care Provider Unavailable Encounter Details Date Type Department Care Team Description 10/01/2016 Radiant Appointment [facility] Lindsay Braxton Finger injury, Clinic Cullen Aguilar MD right, [place] [address] [address] [facility] [place] [address] [phone] Social History Tobacco Use Types Packs/Day Years [...]
--- OUTSIDE RECORDS SUMMARY | 2021-11-14 10:43 | XMS_ITS | Encounter Summary ---
:1990 Author Organization [facility] Address [address] [place] [address]. [place] [address] Care Team Providers Name Role Phone Unavailable Primary Care Provider Unavailable Reason for Visit JOSE Occupational Therapy (Routine) - Closed Specialty Diagnoses / Procedures Referred By Contact Refer red To Contact Occupational Therapy Diagnoses >4, Hand injury, right, subsequent encounter / Tayla Mondragon NP @ [facility] Tayla Mondragon NP [facility] Procedures HAND INITIAL [facility] Therapy - [place] [address] [address] [place] [address] [address] [place] [address] Phone: Fax: Referral ID Status Reason Start Date Expiration Date Visits V isits Requested Authorized JOSE/HP/OT/HAND Closed 11/25/2016 03/29/2017 20 20 Encounter Details Date Type Department Care Team Description 12/05/2016 Therapy Visit [facility] Barbara Love, Pain o f finger of right hand; Rehabilitation Services OT Finger stiffness, right; [facility] [address] [place] Un specified injury of right wrist, hand and finger(s), subsequent encounter [facility] [address] [address] [address] [place], [place] [address] [address] [place], [place] [address] Social History Tobacco Use Types Packs/Day Years [...] Name Priority Date/Time Associated Diagnosis Comme nts [facility] MANUAL THER Routine 12/05/2016 12:00 PM Pain of finger of TECH,1+REGIONS,EA 15 MIN CDT right h and Finger stiffness, right Unspecified injury of right wrist, hand and finger(s), subsequent encounter [facility] NEUROMUSCULAR Routine 12/05/2016 12:00 PM Pain of [...]
--- OUTSIDE RECORDS SUMMARY | 2021-11-14 10:43 | XMS_ITS | Encounter Summary ---
:1990 Author Organization [facility] Address [address] [place] [address]. [place] [address] Care Team Providers Name Role Phone Unavailable Primary Care Provider Unavailable Reason for Referral Consultation - Closed Specialty Diagnoses / Procedures Referred By Contact Refer red To Contact Diagnoses Cystic acne Lindsay Braxton MD [facility] [address] [facility] [place] [address] [facility] [address] [place] [address] Phone: Fax: Referral ID Status Reason Start Date Expiration Date Visits Requ ested Visits Authorized [id number] Closed 01/02/2016 01/01/2017 1 1 Reason for Visit Reason Comments Physical Flu Shot Encounter Details Date Type Department Care Team Description 01/02/2016 Office Visit [facility] Lindsay Braxton for routine adult health examination without abnormal findings (Primary Dx); Clinic Cullen Aguilar MD Cystic acne [address] [facility] [address] [place] [address] 55 [address]44 [address] [phone] Social History Tobacco Use Types Packs/Day Years [...] little help Has well women physicals at [facility] Today's PHQ-2 Score: PHQ-2 (??1999 Pfizer) 01/02/2016 [...] LDL, TRIG, CHOLHDLRATIO, NHDL in the last 52380 hours. Reviewed orders with patient. Reviewed health maintenance and updated orders accordingly - Yes Mammo Decision Support: Mammogram not appropriate for this patient based on age. Last Mammo:No results found. History of abnormal Pap smear: NO - age 21-29 PAP every 3 years recommended All Histories reviewed and updated in [facility]. ROS: C: NEGATIVE for fever, chills, [...] reflected in patient instructions Lindsay Braxton MD [facility] Injectable Influenza Immunization Documentation 1. Is [...] the person to be vaccinated ever had Guillain-Veneta syndrome? No Form completed by [facility] [...] Name Type Priority Associated Diagnoses Order S [facility] DERMATOLOGY REFERRAL Referral Routine Cystic acne Ordered : 01/02/2016 documented as of this encounter Visit Diagnoses Diagnosis Encounter for routine adult health exami [facility] without abnormal findings - Primary Cystic acne Other acne documented in this encounter
--- OUTSIDE RECORDS SUMMARY | 2021-11-14 10:43 | XMS_ITS | Encounter Summary ---
:1990 Author Organization [facility] Address [address] [place] [address] Care Team Providers Name Role Phone Lindsay Braxton MD Primary Care Provider [phone] Tayla Mondragon COOK APPRENTICE Unavailable Reason for Visit JOSE Physical Therapy - Closed Specialty Diagnoses / Procedures Referred By Contact Refer red To Contact Diagnoses Bilateral carpal tunnel syndrome Rodrigo Kirby DO [facility] [id number] [place] [address] [address] [place] [address] Referral ID Status Reason Start Date Expiration Date Visits Requ ested Visits Authorized [id number] Closed 10/28/2017 03/29/2018 40 38 Encounter Details Date Type Department Care Team Description 11/11/2017 Therapy Visit [facility] Silvanoarie, Bilateral carpal tunnel syndrome (Primary Dx); Rehabilitation Services James aguilar OTR Bilateral hand pain [facility] [address] [facility] [address] [place] [address] [place] [address] [phone] Social History Tobacco Use Types Packs/Day Years Used Date Never Smoker Smokeless Tobacco: Never Used Alcohol Use Standard Drinks/Week Comments Yes 0 (1 standard drink = 0.6 oz pure alcoho l) Sex Assigned at Date Recorded Not on file documented as of this encounter Plan of Treatment Not on filedocumented as of this encounter Procedures Procedure Name Priority Date/Time Associated Diagnosis Comme [facility]C NEUROMUSCULAR Routine 11/11/2017 10:18 AM Bilateral carpal RE-EDUCATION CDT tunnel syndrome Bilateral hand pain [facility] THERAPEUTIC EXERCISES Routine 11/11/2017 10:18 AM Bilrosey l carpal CDT tunnel syndrome Bilateral hand pain documented in this encounter Visit Diagnoses Diagnosis Bilateral carpal tunnel syndrome - Prima ry Carpal tunnel syndrome Bilateral hand pain Pain in limb documented in this encounter Care Teams Locomotive Mechanic Relationship Specialty Start Date End Date Lindsay Braxton MD PCP - General Family Practice 02/25/17 [address] [place] [address] Tayla Mondragon NP PCP - Assigned PCP 03/01/17 02/27/18 [facility] [address] [place] [address] documented as of this encounter
--- OUTSIDE RECORDS SUMMARY | 2021-11-14 10:43 | XMS_ITS | Encounter Summary ---
:1990 Author Organization [facility] Address [address] [place] [address]. [place] [address] Care Team Providers Name Role Phone Lindsay Braxton MD Primary Care Provider [phone] Tayla Mondragon DISPLAY DESIGNER OUTSIDE Unavailable Reason for Visit Diagnostic Imaging XR - Closed Specialty Diagnoses / Procedures Referred By Contact Refer red To Contact Diagnoses Elbow pain, right Tayla Mondragon, DISPLAY DESIGNER OUTSIDE Procedures XR Elbow Right G/E 3 Views XR Elbow Right 2 Views [facility] [address] [place] [address] Referral ID Status Reason Start Date Expiration Date Visits Requ ested Visits Authorized [id number] Closed 10/06/2017 10/06/2018 1 1 Encounter Details Date Type Department Care Team Description 10/06/2017 Radiant Appointment [facility] Tayla Mondragon, Elbow pain, right [facility] DISPLAY DESIGNER OUTSIDE [address] [facility] [address] [phone] [place] [address] Social History Tobacco Use Types Packs/Day Years [...] IMPRESSION: Negative. WHITNEY CHESTER MD Tayla Mondragon DISPLAY DESIGNER OUTSIDE IMG DIAGNOSTIC IMAGING ORDER VELMA documented in this encounter Visit Diagnoses Diagnosis Elbow pain, right Pain in joint, upper arm documented in this encounter Care Teams Stringing Machine Tender Relationship Specialty Start Date End Date Lindsay Braxton MD PCP - General Family Practice 02/25/17 [address] [place] [address] Tayla Mondragon NP PCP - Assigned PCP 03/01/17 02/27/18 [facility] [address] [place] [address] documented as of this encounter
--- OUTSIDE RECORDS SUMMARY | 2021-11-14 10:43 | XMS_ITS | Encounter Summary ---
:1990 Author Organization [facility] Address [address] [place] [address]. [place] [address] Care Team Providers Name Role Phone Unavailable Primary Care Provider Unavailable Reason for Visit JOSE Occupational Therapy (Routine) - Closed Specialty Diagnoses / Procedures Referred By Contact Refer red To Contact Occupational Therapy Diagnoses >4, Hand injury, right, subsequent encounter / Tayla Mondragon NP @ [facility] Tayla Mondragon NP M [facility] Procedures HAND INITIAL [facility] Therapy - [place] [address] [address] [place] [address] [address] [place] [address] Phone: Fax: Referral ID Status Reason Start Date Expiration Date Visits V isits Requested Authorized JOSE/HP/OT/HAND Closed 11/25/2016 03/29/2017 20 20 Encounter Details Date Type Department Care Team Description 12/22/2016 Therapy Visit M [facility] Barbara Love, Pain o f finger of right hand; Rehabilitation Services OT Finger stiffness, right; [place] [address] [place] Un specified injury of right wrist, hand and finger(s), subsequent encounter [facility] [address] [address] [place], [place] [address] [address] [place], [place] [address] Social History Tobacco Use Types Packs/Day Years [...] goals are met to pt satisfaction. [facility] documented in this encounter Plan of Treatment Not on filedocumented as of this encounter Procedures Procedure Name Priority Date/Time Associated Diagnosis Comme nts [facility] MANUAL THER Routine 12/26/2016 10:15 AM Pain of finger of TECH,1+REGIONS,EA 15 MIN CDT right h and Finger stiffness, right Unspecified injury of right wrist, hand and finger(s), subsequent encounter [facility] NEUROMUSCULAR Routine 12/26/2016 10:15 AM Pain [...]
--- OUTSIDE RECORDS SUMMARY | 2021-11-14 10:43 | XMS_ITS | Clinical Summary ---
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 [id number] 2015-Pre [address] INS[address]ANCE sent [id number] [place] [address] BCBS [place] OF [place] [id number] 2017-Prese [phone] [place] [address] [address] [place] [address] [phone] none (Work) JANICE FATIMA [id number] Claudia Benoit Worker's Self 1990 [phone] [address] Compensation [address] [phone] JANICE FATIM[address] 8 (Work) [address] [id number] Worker's Employer 1990 [phone] [address] Compensation [address] [phone] JANICE FATIMA 8 (Work) [phone] Care Teams Bias Machine Operator Helper Relationship Specialty Start Date End Date Lindsay Braxton MD PCP - General Family Practice 02/25/17 [address] [place], [place] [address]
--- OUTSIDE RECORDS SUMMARY | 2021-11-14 10:43 | XMS_ITS | Encounter Summary ---
:1990 Author Organization [facility] Address [address] [place] [address] Care Team Providers Name Role Phone Lindsay Braxton MD Primary Care Provider [phone] Tayla Mondragon CALL TAKER Unavailable Reason for Visit Reason Comments Ankle Pain Encounter Details Date Type Department Care Team Description 08/29/2017 Emergency [facility] Darwin Chan MD Acute left ankle pain [facility] Emergency Dep t [facility] [address] [place], [place] [address] [email or web address] [phone] [place] [address] [place] [address] (Wo rk) Social History Tobacco [...] Disposition: discharged to home Jamil Shani 08/29/2017 [facility] EMERGENCY DEPARTMENT I, Jamil Mcleod, am [...] Active and Recently Administered Medications Care Teams Thermostat Maker Relationship Specialty Start Date End Date Lindsay Braxton MD PCP - General Family Practice 02/25/17 [address] [place] [address] Tayla Mondragon NP PCP - Assigned PCP 03/01/17 02/27/18 [facility] [address] [place] [address] documented as of this encounter
--- OUTSIDE RECORDS SUMMARY | 2021-11-14 10:43 | XMS_ITS | Encounter Summary ---
:1990 Author Organization [place] Address [address] [place] [address] Care Team Providers Name Role Phone Lindsay Braxton MD Primary Care Provider Tayla Mondragon AUTO TRANSPORT DRIVER Unavailable Reason for Visit JOSE Physical Therapy - Closed Specialty Diagnoses / Procedures Referred By Contact Refer red To Contact Diagnoses Bilateral carpal tunnel syndrome Rodrigo Kirby, DO [facility] MED [id number] [place] [address] Referral ID Status Reason Start Date Expiration Date Visits Requ ested Visits Authorized [id number] Closed 10/28/2017 03/29/2018 40 38 Encounter Details Date Type Department Care Team Description 11/04/2017 Therapy Visit [facility] Rodrigo Kirby, DO [facility] [id number] [place] [id number] Bilateral carpal tunnel syndrome (Primar y Dx); Rehabilitation Services Shalini Crouch, [facility] [address] [facility] [address] [place], [place] [address] Bilateral hand pain [facility] [address] [facility] [address] [place], [place] [address] Social History Tobacco Use Types Packs/Day Years [...] Pain. Occupational Profile Information: Current occupation is [employer] Currently working in normal job without restrictions [...] none + mild ++ moderate +++ severe Pca 11/04/2017 Trials R L 1 60 60 Lat Pinch 11/04/2017 Trials R L 1 14 14 Assessment: Patient presents with symptoms consistent with diagnosis of CTS, with conservative intervention. Patient's limitations or Problem List includes: Pain, Increased edema and Sensory disturbance of thebilateral hand which interferes with the patient's ability to perform Self Care Tasks (dressing), Work Tasks, Sleep Patterns, Recreational Activities, Senior Account Clerk and Driving as compared to previous level [...] orthosis for night and day PRN Tuba entry level account executive for edema Next Visit: Passive nerve glides [...] limb documented in this encounter Care Teams Clinical Case Manager Relationship Specialty Start Date End Date Lindsay Braxton MD PCP - General Family Practice 02/25/17 [address] [place] [address] Tayla Mondragon AUTO TRANSPORT DRIVER PCP - Assigned PCP 03/01/17 02/27/18 [facility] [address] [place] [address] documented as of this encounter
--- OUTSIDE RECORDS SUMMARY | 2021-11-14 10:43 | XMS_ITS | Encounter Summary ---
:1990 Author Organization [facility] Address [address] [place] [address] Care Team Providers Name Role Phone Unavailable Primary Care Provider Unavailable Reason for Visit JOSE Occupational Therapy (Routine) - Closed Specialty Diagnoses / Procedures Referred By Contact Refer red To Contact Occupational Therapy Diagnoses >4, Hand injury, right, subsequent encounter / Tayla Mondragon NP @ [facility]ILY PRACTICE Tayla Mondragon NP M [facility] Procedures HAND INITIAL [facility] Therapy - [place] [address] [address] [place] [address] [address] [place] [address] Phone: Fax: Referral ID Status Reason Start Date Expiration Date Visits V isits Requested Authorized JOSE/HP/OT/HAND Closed 11/25/2016 03/29/2017 20 20 Encounter Details Date Type Department Care Team Description 11/25/2016 Therapy Visit M [facility] Barbara Love, Unspec ified injury of right wrist, hand and finger(s), subsequent encounter (Primary Dx); Rehabilitation Services OT Pain of finger of right hand; [facility] [address] Arlen jaquez stiffness, [facility] [address] [address] [place], [place] [address] [address] [place], [place] [address] Social History Tobacco Use Types Packs/Day Years Used Date Never Smoker Smokeless Tobacco: Never Used Alcohol Use Standard Drinks/Week Comments Yes 0 (1 standard drink = 0.6 oz pure alcoho l) Sex Assigned at Date Recorded Not on file documented as of this encounter Progress Notes Tri Loveh - 11/25/2016 2:30 PM CDT Hand [...] melatonin. 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 Rehab Potential: Excellent - Return to full activity, no limitations Patient will benefit from skilled Occupational Therapy to increase ROM, flexibility, invoice classification clerk strength, pinch strength and coordination and decrease [...] Name Priority Date/Time Associated Diagnosis Comme nts [facility] MANUAL THER Routine 11/28/2016 8:48 AM Pain of finger of TECH,1+REGIONS,EA 15 MIN CDT right h and Finger stiffness, right Unspecified injury of right wrist, hand and finger(s), subsequent encounter [facility] THERAPEUTIC Routine 11/28/2016 8:48 AM [...]
--- OUTSIDE RECORDS SUMMARY | 2021-11-14 10:43 | XMS_ITS | Encounter Summary ---
:1990 Author Organization [facility] Address [address] [place] [address] Care Team Providers Name Role Phone Lindsay Braxton MD Primary Care Provider [phone] Tayla Mondragon SECURITY DEVELOPER Unavailable Reason for Visit Reason Comments Shortness of Breath Encounter Details Date Type Department Care Team Description 04/26/2017 - [facility] Eneida Rivera MD Upper respiratory tract infection, unspe cified type; 04/27/2017 [facility] Thr oat pain Dept [place] [address] [facility] [address] [place], [place] [phone] Social History Tobacco Use Types Packs/Day Years Used Date Never Smoker Smokeless Tobacco: Never Used Alcohol Use Standard Drinks/Week Comments Yes 0 (1 standard drink = 0.6 oz pure alcoho l) Sex Assigned at Date Recorded Not on file documented as of this encounter Last Filed Vital Signs Vital Sign Reading Time Taken Comments Blood Pressure 129/76 04/27/2017 12:18 AM SALESPERSON [employer]ARD [employer] Pulse 80 04/26/2017 11:12 PM [employer]ESPERSON [employer] Temperature 36.8 ??C (98.3 ??F) 04/26/2017 11:16 PM SALESPERSON [employer] Respiratory Rate 18 04/26/2017 11:12 PM SALESPERSON [employer]ARD [employer] Oxygen Saturation 100% 04/26/2017 11:31 PM SALESPERSON [employer]ARD [employer] Inhaled Oxygen Concentration - - Weight - [...] humidified air to open blocked nasal passages. consumer insights intern a hot shower or use a vaporizer. [...] sore throat Date Last Reviewed: 02/28/2016 ?? 5369-1520 [employer]. [address] [place] [address]. All rights reserved. This information is not [...] moist and relieve throat dryness. ?? Try [id number] pain relievers such as acetaminophen or ibuprofen. [...] starting antibiotics. Date Last Reviewed: 12/29/2015 ?? 3882-6914 [employer]. [address] [place] [address], [place] [address]. All rights reserved. This information is not intended as a substitute for professional medical care. Always follow your healthcare professional's instructions. [employer]ERSON [employer] documented in this encounter Medications at Time [...] that coughing hurts, ABC's intact A&Ox. 4 [employer] Eneida Rivera MD - 04/26/2017 11:01 PM [...] bacterial infection such as OM, RPA, epiglottitis, NETWORK PRICING CONSULTANT, strep pharyngitis, pneumonia, sinusitis, meningitis, bacteremia, serious [...] observations and the provider's statements to me. [facility] Eneida Rivera MD 04/27/17 0009 [employer] documented in this encounter Plan of Treatment Not on filedocumented as of this encounter Visit Diagnoses Diagnosis Upper respiratory tract infection, unspe cified type Throat pain documented in this encounter Administered Medications Inactive Administered Medications - up to 3 most recent administrations Medication Order MAR Action Action Date Dose Rate Site acetaminophen (TYLENOL) tablet Given 04/26/2017 11:31 PM [employer]ESPERSON [employer] 1,0 00 mg 1,000 mg 1,000 mg, Oral, EVERY 4 HOURS PRN, fever, Starting on 04/26/17 at 2318, Maximum acetaminophen dose from all sources = 75 mg/kg/day not to exceed 4 gram albuterol neb solution 2.5 mg Given 04/26/2017 11:32 PM SALESPERSON [employer] 2.5 mg 2.5 mg, Nebulization, ONCE, On 04/26/17 at 2320, For 1 dose ketorolac (TORADOL) injection 30 mg Given 04/26/2017 11:31 PM SALESPERSON [employer] 30 mg 30 mg, Intramuscular, ONCE, On 04/26/17 at 2321, For 1 dose, For ordered doses up to 30 mg, give IV Push undiluted over 2 minutes. documented in this encounter Active and Recently Administered Medications Times are shown in [employer]. Scheduled Medication Order 04/25/2017 04/26/2017 04/27/2017 albuterol [...] gram documented in this encounter Care Teams Cigarette And Filter Chief Inspector Relationship Specialty Start Date End Date Lindsay Braxton MD PCP - General Family Practice 02/25/17 [address] [place] [address] Tayla Mondragon NP PCP - Assigned PCP 03/01/17 02/27/18 [facility] [address] [place] [address] documented as of this encounter
--- OUTSIDE RECORDS SUMMARY | 2021-11-14 10:43 | XMS_ITS | Encounter Summary ---
:1990 Author Organization [facility] Address [address] [place] [address]. [place] [address] Care Team Providers Name Role Phone No Ref-Primary, Physician Primary Care Provider [phone] Reason for Visit Reason Comments Musculoskeletal Problem bilat hand, wrist and arm pa in x 1 week Encounter Details Date Type Department Care Team Description 02/06/2017 Office Visit [facility] Lilia Cerna al car[facility] [place] Colette Samuels MD tunnel syndrome [address] [place] [address] (Primary Dx) [place] [address] [phone] Social History Tobacco Use Types Packs/Day Years Used Date Never Smoker Smokeless Tobacco: Never Used Alcohol Use Standard Drinks/Week Comments Yes 0 (1 standard drink = 0.6 oz pure alcoho l) Sex Assigned at Date Recorded Not on file documented as of this encounter Last Filed Vital Signs Vital Sign Reading Time Taken Comments Blood Pressure 112/75 02/06/2017 8:06 AM FISH DRESSING MACHINE FEEDER Pulse 72 02/06/2017 8:06 AM FISH DRESSING MACHINE FEEDER Temperature 36.4 ??C (97.6 ??F) 02/06/2017 8:06 AM FISH DRESSING MACHINE FEEDER Respiratory Rate 16 02/06/2017 8:06 AM FISH DRESSING MACHINE FEEDER Oxygen Saturation 99% 02/06/2017 8:06 AM FISH DRESSING MACHINE FEEDER Inhaled Oxygen Concentration - - Weight 73.5 kg (162 lb 1.6 oz) 02/06/2017 8:06 AM FISH DRESSING MACHINE FEEDER Height - - Body Mass Index 25.97 11/15/2016 10:10 AM CDT documented in this encounter Patient Instructions Patient InstructionsColette Cerna MD - 02/06/2017 8:19 AM FISH DRESSING MACHINE FEEDER Images from the original note were not [...] bent back when typing. ?? You may use??ifhf-hph-qbzuqoc pain medicine to treat pain and inflammation, [...] or weak Date Last Reviewed: 02/19/2015 ?? 2801-1525 [employer] [address] [place] [address]. All rights reserved. This information is not [...] includes extended or twisted positions. Watch your development coach Don???t just use your thumb and index [...] better position. Date Last Reviewed: 12/08/2014 ?? 1177-5912 [employer] [address] [place] [address]. All rights reserved. This information is not intended as a substitute for professional medical care. Always follow your healthcare professional's instructions. DRESSING MACHINE FEEDER documented in this encounter Progress Notes Colette [...] 0 See Patient Instructions Colette Cerna MD [facility] DRESSING MACHINE FEEDER documented in this encounter Nursing Notes Deepa [...] 1.6 oz (73.5 kg). Medication Reconciliation: complete DRESSING MACHINE FEEDER documented in this encounter Plan of Treatment Not on filedocumented as of this encounter Visit Diagnoses Diagnosis Bilateral carpal tunnel syndrome - Prima ry Carpal tunnel syndrome documented in this encounter Care Teams Used Car Renovator Relationship Specialty Start Date End Date No Ref-Primary, Physician PCP - General 02/06/17 02/24/17 documented as of this encounter
--- OUTSIDE RECORDS SUMMARY | 2021-11-14 10:43 | XMS_ITS | Encounter Summary ---
:1990 Author Organization [facility] Address [address] [place] [address] Care Team Providers Name Role Phone Lindsay Braxton MD Primary Care Provider [phone] Tayla Mondragon ROBOTICS SPECIALIST Unavailable Lindsay Braxton MD Unavailable Lindsay Braxton MD Unavailable Reason for Visit JOSE Physical Therapy - Closed Specialty Diagnoses / Procedures Referred By Contact Refer red To Contact Diagnoses Bilateral carpal tunnel syndrome Rodrigo Kirby DO [facility] [address] [facility] [address] [place] [address] Referral ID Status Reason Start Date Expiration Date Visits Requ ested Visits Authorized [id number] Closed 10/28/2017 03/29/2018 40 38 Encounter Details Date Type Department Care Team Description 12/02/2017 Therapy Visit [facility] Miko, Bilateral carpal tunnel syndrome (Primary Dx); Rehabilitation Services LIBERTY Jones Bilateral hand pain [facility] [place] [address] [facility] [address] [facility] [address] [place], [place] [address] [address] [phone] Social History Tobacco Use Types Packs/Day Years Used Date Never Smoker Smokeless Tobacco: Never Used Alcohol Use Standard Drinks/Week Comments Yes 0 (1 standard drink = 0.6 oz pure alcoho l) Sex Assigned at Date Recorded Not on file documented as of this encounter Progress Notes Shlaini Crouch OTR - 12/02/2017 10:00 AM CDT [...] limb documented in this encounter Care Teams Student Services Coordinator Relationship Specialty Start Date End Date Lindsay Braxton MD PCP - General Family Practice 02/25/17 [address] [place] [address] Tayla Mondragon, SAL PCP - Assigned PCP 03/01/17 02/27/18 [facility] [address] [place] [address] Lindsay Braxton MD PCP - Assigned PCP 02/28/18 06/01/18 [address] [place] [address] Lindsay Braxton MD Assigned PCP 02/14/18 10/11/20 [address] [place] [address] documented as of this encounter
--- NOTE | 2021-11-14 11:00 | CRLHL7_ITS ---
For Patients: As a result of the Century Cures Act, medical imaging exams and procedure reports are released immediately into your electronic medical record. You may view this report before your referring provider. If you have questions, please contact your health care provider. INDICATION: Spotting, IUD placement TECHNIQUE: Ultrasound pelvis transvaginal only COMPARISON: None FINDINGS: Uterus: 7.4 centimeter x 3.0 centimeter x 4.2 centimeter. Normal echotexture of the myometrium. No masses. Endometrium: Transvaginal imaging was performed to better evaluate the endometrium. 3 millimeter in thickness. No sign of endometrial mass or fluid. IUD in the endometrial canal. Right ovary: 3.3 centimeter x 1.8 centimeter x 2.3 centimeter. No ovarian or adnexal masses. Left ovary: 3.9 centimeter x 2.0 centimeter x 2.1 centimeter. No ovarian or adnexal masses. Cul-de-sac: No significant free fluid. IMPRESSION: IUD in the endometrial canal. Dictated by Alpesh Bo MD @ 11/14/2021 11:38:10 AM (Electronically Signed)
== END 2021-11-14 10:41 | disposition home or self-care (01) ==
LOC: US 10:40
PROVIDERS: PCP Nurse Practitioner Family; Visit Provider Advanced Practice Midwife
DX: Z30.430 Encounter for insertion of intrauterine contraceptive device (principal)
CPT/HCPCS: 76830

== ENCOUNTER 2022-02-14 10:37 | Outpatient (CLI) | payer MEDICAID, SELFPAY ==
--- OUTSIDE RECORDS SUMMARY | 2022-02-14 10:47 | XMS_ITS | Clinical Summary ---
:1990 Author Organization [facility] Address [address] [place] [address] Care Team Providers Name Role Phone Lindsay Braxton MD Primary Care Provider [phone] Allergies No known active allergies Medications Medication [...] Tobacco Use Types Packs/Day Years Used Date Smoking Tobacco: Never Smokeless Tobacco: Never Alcohol Use Standard Drinks/Week Comments Yes 0 [...] 1990 ANNUAL REVIEW OF HM ORDERS 1990 HEPATITIS B IMMUNIZATION (1 1990 of 3 - 3-dose series) COVID-19 Vaccine (#1) 06/16/1991 HIV SCREENING 2005 HEPATITIS C SCREENING 2008 YEARLY PREVENTIVE VISIT 01/01/2017 01/02/2016 PAP 10/16/2018 10/17/2015 PHQ-2 (once per calendar 03/30/2021 10/06/2017, year) 02/06/2017, 01/02/2016 INFLUENZA VACCINE (#1) 2021 DTAP/TDAP/TD IMMUNIZATION (2 03/15/2025 03/15/2015, - Td or Tdap) 03/15/2015 IPV IMMUNIZATION Aged Out No longer eligi [...] / Subscriber ID Effective Phone Address T e Group Dates 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 [id number] 2015-Pre [address] INS[address]ANCE sent [id number] [place] [address] BCBS [place] OF [place] [id number] 2017-Prese [phone] [place] [place] [phone] Indemnity nt [address] [place] [address] [phone] none (Work) JANICE FATIMA [id number] Claudia Benoit Worker's Self 1990 [phone] [address] [phone] JANICE FATIMA 8 (Work) [phone] [id number] Worker's Employer 1990 [phone] [address] [phone] JANICE FATIMA 8 (Work) [phone] Care Teams Rail Car Loader Relationship Specialty Start Date End Date Lindsay Braxton MD PCP - General Family Practice 02/25/17 [address] [place], [place] [id number]
--- OUTSIDE RECORDS SUMMARY | 2022-02-14 10:47 | XMS_ITS | Encounter Summary ---
:1990 Author Organization [facility] Address [address] [place] [address] Care Team Providers Name Role Phone Lindsay Braxton MD Primary Care Provider [phone] Tayla Mondragon CIVIL PREPAREDNESS COORDINATOR Unavailable Reason for Visit JOSE Physical Therapy - Closed Specialty Diagnoses / Procedures Referred By Contact Refer red To Contact Diagnoses Bilateral carpal tunnel syndrome Rodrigo Kirby DO [facility] [address] [address] Referral ID Status Reason Start Date Expiration Date Visits Requ ested Visits Authorized [id number] Closed 10/28/2017 03/29/2018 40 38 Encounter Details Date Type Department Care Team Description 11/11/2017 Therapy Visit [facility] Miko, Bilateral carpal tunnel syndrome (Primary Dx); Rehabilitation Services James aguilar, OTR Bilateral hand pain [facility] [place] [id number] [address] [place] [address] [phone] Social History Tobacco Use Types Packs/Day Years Used Date Smoking Tobacco: Never Smokeless Tobacco: Never Alcohol Use Standard Drinks/Week Comments Yes 0 (1 standard drink = 0.6 oz pure alcoho l) Sex Assigned at Date Recorded Not on file documented as of this encounter Plan of Treatment Not on filedocumented as of this encounter Procedures Procedure Name Priority Date/Time Associated Diagnosis Comme [facility] ZC NEUROMUSCULAR Routine 11/11/2017 10:18 AM Bilateral carpal RE-EDUCATION CDT tunnel syndrome Bilateral hand pain ZZC THERAPEUTIC EXERCISES Routine 11/11/2017 10:18 AM Bilatera l carpal CDT tunnel syndrome Bilateral hand pain documented in this encounter Visit Diagnoses Diagnosis Bilateral carpal tunnel syndrome - Prima ry Carpal tunnel syndrome Bilateral hand pain Pain in limb documented in this encounter Care Teams Security Engineer Relationship Specialty Start Date End Date Lindsay Braxton MD PCP - General Family Practice 02/25/17 [address] [place] [address] Tayla Mondragon NP PCP - Assigned PCP 03/01/17 02/27/18 [facility] [address] [place] [address] documented as of this encounter
--- OUTSIDE RECORDS SUMMARY | 2022-02-14 10:47 | XMS_ITS | Encounter Summary ---
:1990 Author Organization [place] Address [facility] [place] [address] Care Team Providers Name Role Phone Lindsay Braxton MD Primary Care Provider Tayla Mondragon USER SUPPORT SPECIALIST Unavailable Reason for Visit Diagnostic Imaging XR - Closed Specialty Diagnoses / Procedures Referred By Contact Refer red To Contact Diagnoses Elbow pain, right Tayla Mondragon, USER SUPPORT SPECIALIST Procedures XR Elbow Right G/E 3 Views XR Elbow Right 2 Views [facility] [address] [place] [address] Referral ID Status Reason Start Date Expiration Date Visits Requ ested Visits Authorized [id number] Closed 10/06/2017 10/06/2018 1 1 Encounter Details Date Type Department Care Team Description 10/06/2017 Radiant Appointment [facility] Tayla Mondragon, Elbow pain, right [facility] USER SUPPORT SPECIALIST [address] [facility] [address] [phone] [place] [address] Social History Tobacco Use Types Packs/Day Years [...] IMPRESSION: Negative. WHITNEY CHESTER MD Tayla Mondragon USER SUPPORT SPECIALIST IMG DIAGNOSTIC IMAGING ORDER VELMA documented in this encounter Visit Diagnoses Diagnosis Elbow pain, right Pain in joint, upper arm documented in this encounter Care Teams Cartographic Engineer Relationship Specialty Start Date End Date Lindsay Braxton MD PCP - General Family Practice 02/25/17 [address] [place] [address] Tayla Mondragon NP PCP - Assigned PCP 03/01/17 02/27/18 [facility] [address] [place] [address] documented as of this encounter
--- OUTSIDE RECORDS SUMMARY | 2022-02-14 10:47 | XMS_ITS | Encounter Summary ---
:1990 Author Organization [facility] Address [address] [place] [address] Care Team Providers Name Role Phone No Ref-Primary, Physician Primary Care Provider Reason for Visit Reason Comments Nerve Pain Encounter Details Date Type Department Care Team Description 02/14/2017 [facility] Valeria Arciniega B ilateral [facility] Emergency Dep t MD tunnel syndrome [address] [facility] [place] [address] [address] [facility] [phone] [place], [place] [address] (Wo rk) Social History [...] Comments Blood Pressure 136/93 02/14/2017 3:56 PM TRUCK OPERATOR Pulse 68 02/14/2017 3:56 PM TRUCK OPERATOR Temperature 36.2 ??C (97.1 ??F) 02/14/2017 3:56 PM TRUCK OPERATOR Respiratory Rate 18 02/14/2017 3:56 PM TRUCK OPERATOR Oxygen Saturation 100% 02/14/2017 3:56 PM TRUCK OPERATOR Inhaled Oxygen Concentration - - Weight - - Height - - Body Mass Index - - documented in this encounter Discharge Instructions Discharge InstructionsValeria Arciniega MD - 02/14/2017 4:19 PM TRUCK OPERATOR Images from the original note were not [...] bent back when typing. ?? You may use??kwgy-jxz-xhnywrd pain medicine to treat pain and inflammation, [...] or weak Date Last Reviewed: 02/19/2015 ?? 5335-4565 [employer]. [address] [place] [address]. All rights reserved. This information is not [...] includes extended or twisted positions. Watch your silver solderer Don???t just use your thumb and index [...] better position. Date Last Reviewed: 12/08/2014 ?? 8135-[address] [employer] [address] [place] [address]. All rights reserved. This information is not intended as a substitute for professional medical care. Always follow your healthcare professional's instructions. K OPERATOR documented in this encounter Medications at Time [...] documented as of this encounter ED Notes Annalias Charlton RN - 02/14/2017 3:57 PM CST ABCs intact. Pt was recently dx with carpel tunnel. Pt c/o increased nerve pain today. K OPERATOR Valeria Arciniega MD - 02/14/2017 3:47 PM [...] provider's statements to me. Pam Zarate 02/14/2017 [facility] EMERGENCY DEPARTMENT Valeria Arciniega MD 02/15/17 0254 K OPERATOR documented in this encounter Plan of Treatment Not on filedocumented as of this encounter Visit Diagnoses Diagnosis Bilateral carpal tunnel syndrome Carpal tunnel syndrome documented in this encounter Administered Medications Inactive Administered Medications - up to 3 most recent administrations Medication Order MAR Action Action Date Dose Rate Site HYDROcodone-acetaminophen Given 02/14/2017 4:26 PM TRUCK OPERATOR 1 tablet (NORCO) 5-325 MG per tablet 1 tablet 1 tablet, Oral, ONCE, On 02/14/17 at 1620, For 1 dose, Maximum acetaminophen dose from all sources= 75 mg/kg/day not to exceed 4 grams documented in this encounter Active and Recently Administered Medications Times are shown in TRUCK OPERATOR. Scheduled Medication Order 02/12/2017 02/13/2017 02/14/2017 HYDROcodone-acetaminophen (NORCO) 5-325 MG per tablet 1 tablet ( COMPLETED) 1626 (Given - Provider: Jef Chapman, RN) 1 tablet, Oral, ONCE, On 02/14/17 at 1620, For 1 dose, Maximum acetaminophen dose from all sources= 75 mg/kg/day not to exceed 4 grams documented in this encounter Care Teams Director Treasurer Relationship Specialty Start Date End Date No Ref-Primary, Physician PCP - General 02/06/17 02/24/17 documented as of this encounter
--- OUTSIDE RECORDS SUMMARY | 2022-02-14 10:47 | XMS_ITS | Encounter Summary ---
:1990 Author Organization [place] Address [facility] [place] [address] Care Team Providers Name Role Phone Lindsay Braxton MD Primary Care Provider [phone] Tayla Mondragon SENIOR SOFTWARE ENGINEER Unavailable Reason for Visit Reason Comments Elbow right Encounter Details Date Type Department Care Team Description 10/06/2017 Office Visit [facility] Tayla Mondragon, Elbow pain, right (Primary Dx); [facility] SENIOR SOFTWARE ENGINEER Cervicalgia [address] [facility] [address] [address] [facility] [phone] [place], [place] [address] Social History Tobacco Use [...] in this encounter Progress Notes Tayla Mondragon, SENIOR SOFTWARE ENGINEER - 10/06/2017 8:15 AM CDT SUBJECTIVE: Claudia [...] is concerned about possible fracture. 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 Slight bruising noted. SKIN: no suspicious [...] improve, referral to orthopedics. Tayla Mondragon NP [employer] documented in this encounter Plan of Treatment Not on filedocumented as of this encounter Visit Diagnoses Diagnosis Elbow pain, right - Primary Pain in joint, upper arm Cervicalgia documented in this encounter Care Teams Civil Engineer Land Development Relationship Specialty Start Date End Date Lindsay Braxton MD PCP - General Family Practice 02/25/17 [address] [place] [address] Tayla Mondragon NP PCP - Assigned PCP 03/01/17 02/27/18 [facility] [address] [place] [address] documented as of this encounter
--- OUTSIDE RECORDS SUMMARY | 2022-02-14 10:47 | XMS_ITS | Encounter Summary ---
:1990 Author Organization [facility] Address [address] [place] [address] Care Team Providers Name Role Phone Lindsay Braxton MD Primary Care Provider [phone] Tayla Mondragon AUTOMOTIVE SALESPERSON Unavailable Reason for Visit Reason Comments Shortness of Breath Encounter Details Date Type Department Care Team Description 04/26/2017 - Emergency [facility] Eneida Rivera MD Upper respiratory tract infection, unspe cified type; 04/27/2017 [facility] Emergency EMERGENCY PHYSICIANS Thr oat pain Dept [facility] [address] [facility] [address] [place], [place] [phone] Social History Tobacco Use Types Packs/Day Years Used Date Smoking Tobacco: Never Smokeless Tobacco: Never Alcohol Use Standard Drinks/Week Comments Yes 0 (1 standard drink = 0.6 oz pure alcoho l) Sex Assigned at Date Recorded Not on file documented as of this encounter Last Filed Vital Signs Vital Sign Reading Time Taken Comments Blood Pressure 129/76 04/27/2017 12:18 AM FLEET MECHANIC Pulse 80 04/26/2017 11:12 PM FLEET MECHANIC Temperature 36.8 ??C (98.3 ??F) 04/26/2017 11:16 PM FLEET MECHANIC Respiratory Rate 18 04/26/2017 11:12 PM FLEET MECHANIC Oxygen Saturation 100% 04/26/2017 11:31 PM FLEET MECHANIC Inhaled Oxygen Concentration - - Weight - [...] humidified air to open blocked nasal passages. curtain roller assembler a hot shower or use a vaporizer. [...] sore throat Date Last Reviewed: 02/28/2016 ?? 9770-6259 [employer]. [address] [place] [address]. All rights reserved. This information is not [...] moist and relieve throat dryness. ?? Try klry-iyz-puwknjf pain relievers such as acetaminophen or ibuprofen. [...] starting antibiotics. Date Last Reviewed: 12/29/2015 ?? 3661-1315 [employer]. [address] [place] [address], [place] [address]. All rights reserved. This information is not intended as a substitute for professional medical care. Always follow your healthcare professional's instructions. T MECHANIC documented in this encounter Medications at Time [...] that coughing hurts, ABC's intact A&Ox. 4 T MECHANIC Eneida Rivera MD - 04/26/2017 11:01 PM [...] bacterial infection such as OM, RPA, epiglottitis, BOX COVERING MACHINE OPERATOR, strep pharyngitis, pneumonia, sinusitis, meningitis, bacteremia, serious [...] observations and the provider's statements to me. [facility] EMERGENCY [facility]PARTMENT Enieda Rivera MD 04/27/17 0009 T MECHANIC documented in this encounter Plan of Treatment Not on filedocumented as of this encounter Visit Diagnoses Diagnosis Upper respiratory tract infection, unspe cified type Throat pain documented in this encounter Administered Medications Inactive Administered Medications - up to 3 most recent administrations Medication Order MAR Action Action Date Dose Rate Site acetaminophen (TYLENOL) tablet Given 04/26/2017 11:31 PM FLEET MECHANIC 1,0 00 mg 1,000 mg 1,000 mg, Oral, EVERY 4 HOURS PRN, fever, Starting on 04/26/17 at 2318, Maximum acetaminophen dose from all sources = 75 mg/kg/day not to exceed 4 gram albuterol neb solution 2.5 mg Given 04/26/2017 11:32 PM FLEET MECHANIC 2.5 mg 2.5 mg, Nebulization, ONCE, On 04/26/17 at 2320, For 1 dose ketorolac (TORADOL) injection 30 mg Given 04/26/2017 11:31 PM FLEET MECHANIC 30 mg 30 mg, Intramuscular, ONCE, On 04/26/17 at 2321, For 1 dose, For ordered doses up to 30 mg, give IV Push undiluted over 2 minutes. documented in this encounter Active and Recently Administered Medications Times are shown in FLEET MECHANIC. Scheduled Medication Order 04/25/2017 04/26/2017 04/27/2017 albuterol neb solution 2.5 mg (COMPLETED) 2331 (Given - Provider: Rainer Medina RN) 2.5 mg, Nebulization, ONCE, 04/26/17 at 2320, [...] gram documented in this encounter Care Teams Mold Filler Plastic Dolls Relationship Specialty Start Date End Date Lindsay Braxton MD PCP - General Family Practice 02/25/17 [address] [place] [address] Tayla Mondragon NP PCP - Assigned PCP 03/01/17 02/27/18 [facility] [address] [place] [address] documented as of this encounter
--- OUTSIDE RECORDS SUMMARY | 2022-02-14 10:47 | XMS_ITS | Encounter Summary ---
:1990 Author Organization [place] Address [facility] [place] [address] Care Team Providers Name Role Phone Lindsay Braxton MD Primary Care Provider [phone] Reason for Visit Reason Comments Numbness Encounter Details Date Type Department Care Team Description 02/25/2017 Office Visit [facility] Tayla Mondragon, Neal rge of breast (Primary Dx); [facility] [place] TITLE I DIRECTOR Bilateral carpal tunnel syndrome [address] [facility] [id number] [address] [facility] [phone] [place], [place] [address] Social History Tobacco Use Types Packs/Day Years Used Date Smoking Tobacco: Never Smokeless Tobacco: Never Alcohol Use Standard Drinks/Week Comments Yes 0 (1 standard drink = 0.6 oz pure alcoho l) Sex Assigned at Date Recorded Not on file documented as of this encounter Last Filed Vital Signs Vital Sign Reading Time Taken Comments Blood Pressure 122/70 02/25/2017 1:02 PM MALTED MILK MIXER Pulse 76 02/25/2017 1:02 PM MALTED MILK MIXER Temperature 36.7 ??C (98 ??F) 02/25/2017 1:02 PM MALTED MILK MIXER Respiratory Rate 16 02/25/2017 1:02 PM MALTED MILK MIXER Oxygen Saturation 99% 02/25/2017 1:02 PM MALTED MILK MIXER Inhaled Oxygen Concentration - - Weight 74.8 kg (165 lb) 02/25/2017 1:02 PM MALTED MILK MIXER Height 169.5 cm (5' 6.75) 02/25/2017 1:02 PM MALTED MILK MIXER Body Mass Index 26.04 02/25/2017 1:02 PM MALTED MILK MIXER documented in this encounter Progress Notes Tayla Mondragon, TITLE I DIRECTOR - 02/25/2017 1:00 PM CST SUBJECTIVE: Claudia Benoit is a 26 year old female who presents to clinic today for the following health issues: Here with concerns about carpal tunnel .Has been seen by Dr. Cerna at [facility]. Had an EMG yesterday and the [facility] recommended that she have her vitamins, minerals, and lyme disease screening. Has been wearing the braces recommended by Dr. Braxton and they have been very helpful in managing her symptoms. Has ongoing joint pain with numbness in both of her great toes. Has discharge from her breasts as well. Is requesting a prolactin level as well. Has talked to her Necktie Operator Pockets And Pieces about this as well. Complaining of breast [...] be within normal limits. Tayla Mondragon NP [facility] ED MILK MIXER documented in this encounter Nursing Notes Pravin [...] kg). Medication Reconciliation: complete Pravin [place] CMA ED MILK MIXER documented in this encounter Plan of Treatment Not on filedocumented as of this encounter Procedures Procedure Name Priority Date/Time Associated Comments Diagnosis LYME DISEASE TOTAL ABS Routine 02/25/2017 1:30 PM Bilateral ca rpal Results for this BLD WITH REFLEX TO MALTED MILK MIXER tunnel syndrome proced ure are in CONFIRM CLIA the results section. VITAMIN D DEFICIENCY Routine 02/25/2017 1:30 PM Bilateral carp al Results for this SCREENING MALTED MILK MIXER tunnel syndrome procedure ar e in the results section. PROLACTIN Routine 02/25/2017 1:30 PM Discharge of breast Re sults for this MALTED MILK MIXER procedure are i n the results section. CRP INFLAMMATION Routine 02/25/2017 1:30 PM Bilateral carpal R esults for this MALTED MILK MIXER tunnel syndrome procedure ar e in the results section. COMPREHENSIVE Routine 02/25/2017 1:30 PM Bilateral carpal Resu lts for this METABOLIC PANEL MALTED MILK MIXER tunnel syndrome procedure are in the results section. VITAMIN B12 Routine 02/25/2017 1:30 PM Bilateral carpal Resul ts for this MALTED MILK MIXER tunnel syndrome procedure ar e in the results section. documented in this encounter Results Prolactin (02/25/2017 1:30 PM MALTED MILK MIXER) athologist Signature Prolactin 9 3 - 27 ug/L 02/25/2017 [facility] 7:09 PM [facility] Comment: Reference ranges apply to non-p regnant females only. Specimen Anatomical Collection Method Collection Time Receive d Time (Source) Location / / Volume Laterality Blood specimen 02/25/2017 1:30 PM 017 1:31 (specimen) MALTED MILK MIXER PM MALTED MILK MIXER Tayla Mondragon NP LAB - BLOOD ORDERABLES Performing Organization Address City/[facility]/ZIP Code Phon e Number [address] Lyme Disease Silvia with reflex to WB Serum (02/25/2017 1:30 PM MALTED MILK MIXER) athologist [facility] Lyme Disease 0.03 0.00 - 02/26/2017 [facility] 0.89 12:13 PM [facility] Comment: Negative, Absence of detectable Borrelia [...] specimen 02/25/2017 1:30 PM 017 1:31 (specimen) MALTED MILK MIXER PM MALTED MILK MIXER Tayla Mondragon NP LAB - BLOOD ORDERABLES Performing Organization Address City/[facility]/ZIP Code Phon e Number [address] (ABNORMAL) Comprehensive metabolic panel (02/25/2017 1:30 PM MALTED MILK MIXER) athologist Signature Sodium 140 133 - 144 02/26/2017 [facility] mmol/L 8:16 AM [facility] Potassium 3.7 3.4 - 5.3 02/26/2017 [facility] mmol/L 8:16 AM [facility] Chloride 106 94 - 109 02/26/2017 [facility] mmol/L 8:16 AM [facility] Carbon Dioxide 26 20 - 32 02/26/2017 [facility] mmol/L 8:16 AM [facility] Anion Gap 8 3 - 14 02/26/2017 [place] mmol/L 8:16 AM [facility] Glucose 80 70 - 99 02/26/2017 [facility] mg/dL 8:16 AM [facility] Urea Nitrogen 20 7 - 30 02/26/2017 [facility] mg/dL 8:16 AM [facility] Creatinine 0.68 0.52 - 02/26/2017 [facility] 1.04 mg/dL 8:16 AM [facility] GFR Estimate >90 >60 02/26/2017 [place] mL/min/1.7 8:[address] Comment: Non GFR Calc GFR Estimate If >90 >60 mL/min/1.7m2 02/26/2017 8:16 A M [facility] Comment: GFR Calc Calcium 9.0 8.5 - 10.1 02/26/2017 8:16 AM [facility] mg/dL [facility] Bilirubin Total 0.3 0.2 - 1.3 02/26/2017 8:16 AM [facility] mg/dL [facility] Albumin 3.9 3.4 - 5.0 g/dL 02/26/2017 8:16 AM [facility] Protein Total 7.3 6.8 - 8.8 g/dL 02/26/2017 8:17 AM [facility] Alkaline Phosphatase 37 (L) 40 - 150 U/L 02/26/2017 8:17 AM [facility] ALT 31 0 - 50 U/L 02/26/2017 8:16 AM [facility] AST 18 0 - 45 U/L 02/26/2017 8:16 AM [place] [facility] Specimen Anatomical Collection Method Collection Time Receive d Time (Source) Location / / Volume Laterality Blood specimen 02/25/2017 1:30 PM 017 1:31 (specimen) MALTED MILK MIXER PM MALTED MILK MIXER Tayla Mondragon TITLE I DIRECTOR LAB - BLOOD ORDERABLES Performing Organization Address City/State/ZIP Code Phon e Number [facility] [address] [place] [address] CRP inflammation (02/25/2017 1:30 PM MALTED MILK MIXER) Analysis Performed At Patho logist Time Signature CRP Inflammation <2.9 0.0 - 8.0 02/25/2017 [facility] mg/L 7:00 PM MALTED MILK MIXER [facility] Specimen Anatomical Collection Method Collection Time Receive d Time (Source) Location / / Volume Laterality Blood specimen 02/25/2017 1:30 PM 017 1:31 (specimen) MALTED MILK MIXER PM MALTED MILK MIXER Tayla Mondragon NP LAB - BLOOD ORDERABLES Performing Organization Address City/State/ZIP Code Phon e Number [facility] [address] [place] [address] [facility] Vitamin B12 (02/25/2017 1:30 PM MALTED MILK MIXER) P athologist Signature Vitamin B12 832 193 - 146 02/25/2017 [facility] pg/mL 7:28 PM MALTED MILK MIXER [facility] Specimen Anatomical Collection Method Collection Time Receive d Time (Source) Location / / Volume Laterality Blood specimen 02/25/2017 1:30 PM 017 1:31 (specimen) MALTED MILK MIXER PM MALTED MILK MIXER Tayla Mondragon TITLE I DIRECTOR LAB - BLOOD ORDERABLES Performing Organization Address City/State/ZIP Code Phon e Number [facility] [address] [place], [place] [id number] [place] [address] Vitamin D Deficiency (02/25/2017 1:30 PM MALTED MILK MIXER) P athologist Signature Vitamin D 23 20 - 75 02/26/2017 [facility] Deficiency ug/L 10:17 AM MALTED MILK MIXER [facility] Comment: Season, race, dietary intake, and treatm ent affect the concentration of 23-wcvxhay-Btbnpjg D. Values may decreas e during winter [...] specimen 02/25/2017 1:30 PM 017 1:31 (specimen) MALTED MILK MIXER PM MALTED MILK MIXER Tayla Mondragon NP LAB - BLOOD ORDERABLES Performing Organization Address City/State/ZIP Code Phon e Number [facility] [address] documented in this encounter Visit Diagnoses Diagnosis Discharge of breast - Primary Other sign and symptom in breast Bilateral carpal tunnel syndrome Carpal tunnel syndrome documented in this encounter Care Teams Quality Control Supervisor Relationship Specialty Start Date End Date Lindsay Braxton MD PCP - General Family Practice 02/25/17 [address] [place] [address] documented as of this encounter
--- OUTSIDE RECORDS SUMMARY | 2022-02-14 10:47 | XMS_ITS | Encounter Summary ---
:1990 Author Organization [place] Address [address] [place] [address]. [place] [address] Care Team Providers Name Role Phone No Ref-Primary, Physician Primary Care Provider [phone] Reason for Visit Reason Comments Musculoskeletal Problem bilat hand, wrist and arm pa in x 1 week Encounter Details Date Type Department Care Team Description 02/06/2017 Office Visit [facility] Lilia Cerna al [facility] [place] Colette Samuels MD tunnel syndrome [address] [place] [address] (Primary Dx) [place] [address] [phone] Social History Tobacco Use Types Packs/Day Years Used Date Smoking Tobacco: Never Smokeless Tobacco: Never Alcohol Use Standard Drinks/Week Comments Yes 0 (1 standard drink = 0.6 oz pure alcoho l) Sex Assigned at Date Recorded Not on file documented as of this encounter Last Filed Vital Signs Vital Sign Reading Time Taken Comments Blood Pressure 112/75 02/06/2017 8:06 AM CERTIFIED PROSTHETIST Pulse 72 02/06/2017 8:06 AM CERTIFIED PROSTHETIST Temperature 36.4 ??C (97.6 ??F) 02/06/2017 8:06 AM CERTIFIED PROSTHETIST Respiratory Rate 16 02/06/2017 8:06 AM CERTIFIED PROSTHETIST Oxygen Saturation 99% 02/06/2017 8:06 AM CERTIFIED PROSTHETIST Inhaled Oxygen Concentration - - Weight 73.5 kg (162 lb 1.6 oz) 02/06/2017 8:06 AM CERTIFIED PROSTHETIST Height - - Body Mass Index 25.97 11/15/2016 10:10 AM CDT documented in this encounter Patient Instructions Patient InstructionsEryn Colette Adaben, MD - 02/06/2017 8:19 AM CERTIFIED PROSTHETIST Images from the original note were not [...] bent back when typing. ?? You may use??jpas-okv-bjojuoj pain medicine to treat pain and inflammation, [...] or weak Date Last Reviewed: 02/19/2015 ?? [id number] [employer]. [address] [place] [address]. All rights reserved. This information is not [...] includes extended or twisted positions. Watch your rooter operator Don???t just use your thumb and index [...] better position. Date Last Reviewed: 12/08/2014 ?? [phone] [employer]. [address] [place] [address]. All rights reserved. This information is not intended as a substitute for professional medical care. Always follow your healthcare professional's instructions. IFIED PROSTHETIST documented in this encounter Progress Notes Colette [...] 0 See Patient Instructions Colette Cerna MD [facility] IFIED PROSTHETIST documented in this encounter Nursing Notes Deepa [...] 1.6 oz (73.5 kg). Medication Reconciliation: complete IFIED PROSTHETIST documented in this encounter Plan of Treatment Not on filedocumented as of this encounter Visit Diagnoses Diagnosis Bilateral carpal tunnel syndrome - Prima ry Carpal tunnel syndrome documented in this encounter Care Teams Roll Icer Relationship Specialty Start Date End Date No Ref-Primary, Physician PCP - General 02/06/17 02/24/17 documented as of this encounter
--- OUTSIDE RECORDS SUMMARY | 2022-02-14 10:47 | XMS_ITS | Encounter Summary ---
:1990 Author Organization [place] Address [address] [place] [address] Care Team Providers Name Role Phone Lindsay Braxton MD Primary Care Provider [phone] Tayla Mondragon HOT DIPPER Unavailable Reason for Visit Reason Comments Ankle Pain Encounter Details Date Type Department Care Team Description 08/29/2017 Emergency [facility] Darwin Chan MD Acute left ankle pain [facility] Emergency Dep t [facility] [address] [place], [place] [address] [address] [address] [place] [address] [place] [address] (Wo rk) Social History Tobacco [...] surgical hardware Disposition: discharged to home Jamil Mcleod 08/29/2017 [facility] EMERGENCY DEPARTMENT [...] Active and Recently Administered Medications Care Teams Manager Massage Department Relationship Specialty Start Date End Date Lindsay Braxton MD PCP - General Family Practice 02/25/17 [address] [place] [address] Tayla Mondragon NP PCP - Assigned PCP 03/01/17 02/27/18 [facility] [address] [place] [address] documented as of this encounter
--- OUTSIDE RECORDS SUMMARY | 2022-02-14 10:47 | XMS_ITS | Encounter Summary ---
:1990 Author Organization [place] Address [facility] [address] Care Team Providers Name Role Phone Lindsay Braxton MD Primary Care Provider [phone] Tayla Mondragon LINOLEUM LAYER HELPER Unavailable Reason for Referral JOSE Physical Therapy - Closed Specialty Diagnoses / Procedures Referred By Contact Refer red To Contact Diagnoses Bilateral carpal tunnel syndrome Rodrigo Kirby DO [facility] [address] [employer] [address] [place] [address] Referral ID Status Reason Start Date Expiration Date Visits Requ ested Visits Authorized [id number] Closed 10/28/2017 03/29/2018 40 38 Reason for Visit Reason Comments Hand Pain numbness, Consultation - Closed Specialty Diagnoses / Procedures Referred By Contact Refer red To Contact Orthopedics and Sports Diagnoses Right elbow pain Tayla Mondragon NP [facility]OP[facility]?? [address] [place] [address] [place] [address] [address] [place] [address] Phone: Fax: Referral ID Status Reason Start Date Expiration Date Visits Requ ested Visits Authorized [id number] Closed 10/12/2017 10/12/2018 1 1 Encounter Details Date Type Department Care Team Description 10/28/2017 Office Visit [facility] Rodrigo Kirby Bi lateral carpal Sports Medicine DO tunnel syndrome Clinic [facility] (Primary Dx) [address] [facility] SPORTS MED [address] [address] [place] [address] [facility] [address] [place], [place] [address] (Wo rk) Social History [...] 1. Bilateral carpal tunnel syndrome Hand therapy: [facility] - [phone] Reviewed EMG - confirms bilateral carpal tunnel syndrome, left worse than right Use brace at work as needed and at night If not improved with hand therapy can consider cortisone injections Can also consider surgery if desired / not improving with therapy and injections. Mini-open or US guided release ([employer]) Follow up after 4-6 therapy sessions if not improved or at any point if you want to proceed with an injection. documented in this encounter Progress Notes Rodrigo Kirby DO - 10/28/2017 9:00 AM CDT Images from the original note were not included. ASSESSMENT & PLAN 1. Bilateral carpal tunnel syndrome Hand therapy: [facility] - [phone] Reviewed previous EMG - confirms bilateral carpal tunnel syndrome, left worse than right Use brace at work as needed and at night If not improved with hand therapy can consider cortisone injections Can also consider surgery if desired / not improving with therapy and injections. 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 Normal pinch strength. Special Tests: Positive: Phalen's Independent visualization of the below image: [facility] EMG 02/24/17 Patient's conditions were thoroughly discussed during today's visit with greater than 50% of the visit spent counseling the patient with total time spent erxw-yj-qrmn with the patient being 15 minutes. Rodrigo Kirby DO [facility] documented in this encounter Plan of Treatment Scheduled Referrals Name Type Priority Associated Diagnoses Order S chedule JOSE PT, HAND, AND Referral Routine Bilateral carpal Ordere d: 10/28/2017 [facility] tunnel syndrome documented as of this encounter Visit Diagnoses Diagnosis Bilateral carpal tunnel syndrome - Prima ry Carpal tunnel syndrome documented in this encounter Care Teams Mold Capper Helper Relationship Specialty Start Date End Date Lindsay Braxton MD PCP - General Family Practice 02/25/17 [address] [place] [address] Tayla Mondragon NP PCP - Assigned PCP 03/01/17 02/27/18 [facility] [address] [place] [address] documented as of this encounter
--- OUTSIDE RECORDS SUMMARY | 2022-02-14 10:47 | XMS_ITS | Encounter Summary ---
:1990 Author Organization [place] Address [facility] [place] [address] Care Team Providers Name Role Phone Lindsay Braxton MD Primary Care Provider [phone] Tayla Mondragon BABY COUNSELOR Unavailable Reason for Visit Reason Comments Urgent Care URI Encounter Details Date Type Department Care Team Description 04/25/2017 Office Visit [facility] Logan Jordan, Inborn error of amino Urgent Care Rosio hill MD acid metabolism (H) [address] (Primary Dx) [place] [address] [id number] Social History Tobacco Use Types Packs/Day Years Used Date Smoking Tobacco: Never Smokeless Tobacco: Never Alcohol Use Standard Drinks/Week Comments Yes 0 (1 standard drink = 0.6 oz pure alcoho l) Sex Assigned at Date Recorded Not on file documented as of this encounter Progress Notes Logan Jordan MD - 04/25/2017 3:15 PM CST Err N RESOURCES EXECUTIVE ASSISTANT documented in this encounter Plan of Treatment Not on filedocumented as of this encounter Visit Diagnoses Diagnosis 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
--- OUTSIDE RECORDS SUMMARY | 2022-02-14 10:47 | XMS_ITS | Encounter Summary ---
:1990 Author Organization [place] Address [address] [place] [address] Care Team Providers Name Role Phone Lindsay Braxton MD Primary Care Provider [phone] Tayla Mondragon CRAWLER DRAGLINE OPERATOR Unavailable Reason for Visit JOSE Physical Therapy - Closed Specialty Diagnoses / Procedures Referred By Contact Refer red To Contact Diagnoses Bilateral carpal tunnel syndrome Rodrigo Kirby DO [facility] [address] [facility] [address] [place] [address] Referral ID Status Reason Start Date Expiration Date Visits Requ ested Visits Authorized [id number] Closed 10/28/2017 03/29/2018 40 38 Encounter Details Date Type Department Care Team Description 11/27/2017 Therapy Visit [facility] Barbara Love Bilate ral hand pain; Rehabilitation Services OT Bilateral carpal tunnel syndrome [facility] [address] [facility] [address] [address] [place], [place] [address] [address] [place], [place] [address] Social History Tobacco Use Types Packs/Day Years [...] 15 MIN CDT Bilateral carpal tunnel syndrome [facility] NEUROMUSCULAR Routine 11/27/2017 9:12 AM Bilateral h and pain RE-EDUCATION CDT Bilateral carpal tunnel syndrome documented in this encounter Visit Diagnoses Diagnosis Bilateral hand pain Pain in limb Bilateral carpal tunnel syndrome Carpal tunnel syndrome documented in this encounter Care Teams Fish Hatchery Inspector Relationship Specialty Start Date End Date Lindsay Braxton MD PCP - General Family Practice 02/25/17 [address] [place] [address] Tayla Mondragon CRAWLER DRAGLINE OPERATOR PCP - Assigned PCP 03/01/17 02/27/18 [facility] [address] [place] [address] documented as of this encounter
--- OUTSIDE RECORDS SUMMARY | 2022-02-14 10:47 | XMS_ITS | Encounter Summary ---
:1990 Author Organization [facility] Address [address] [place] [address] Care Team Providers Name Role Phone Lindsay Braxton MD Primary Care Provider [phone] Tayla Mondragon POTATO PEELER Unavailable Reason for Visit JOSE Physical Therapy - Closed Specialty Diagnoses / Procedures Referred By Contact Refer red To Contact Diagnoses Bilateral carpal tunnel syndrome Rodrigo Kirby DO [facility] [address] [address] Referral ID Status Reason Start Date Expiration Date Visits Requ ested Visits Authorized [id number] Closed 10/28/2017 03/29/2018 40 38 Encounter Details Date Type Department Care Team Description 11/04/2017 Therapy Visit [facility] Rodrigo Kirby DO [facility] [id number] [place] [address] [id number] Bilateral carpal tunnel syndrome (Primar y Dx); Rehabilitation Services Shalini Crouch, [place] [address] [facility] [address] [place], [place] 95[address] Bilateral hand pain [facility] [address] [facility] [address] [place] [address] Social History Tobacco Use Types Packs/Day Years Used Date Smoking Tobacco: Never Smokeless Tobacco: Never Alcohol Use Standard Drinks/Week Comments Yes 0 (1 standard drink = 0.6 oz pure alcoho l) Sex Assigned at Date Recorded Not on file documented as of this encounter Progress Notes Miko Shalini, OTR - 11/04/2017 2:00 PM CDT Hand Therapy Initial Evaluation Current Date: 11/04/2017 Diagnosis: Bilateral carpal tunnel syndrome DUARTE/ orders: 10/28/17 Onset: Fall 2016 Referring MD: Rodrigo Kirby, Subjective: Claudia Benoit is a 26 year old R hand dominant female. Patient reports symptoms of pain, weakness/loss of strength and tingling of the right and left handsleft is worse which occurred due to CTS. Since onset symptoms are Unchanged?? Special tests:?? no.??Previous treatment: OTC wrist brace.? General health as reported by patient is good.?? Pertinentmedical history includes:Depression, History of Fractures, Numbness/Tingling, pain at night, significant weakness Medical allergies:none. Surgical history: orthopedic: ankle 2007.?? Medication history:Anti-depressants, Pain. 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 no limitations Barriers include:none Mobility: No difficulty Transportation: drives Leisure activities/hobbies: horseback riding, gardening, house projects Functional Outcome Measure: See flowsheet Objective: Pain Level Report VAS(0-10) 11/04/2017 At Rest: 10 With Use: 10 Report of Pain: Location: wrist and hand [...] none + mild ++ moderate +++ severe Restaurant Assistant 11/04/2017 Trials R L 1 60 60 Lat Pinch 11/04/2017 Trials R L 1 14 14 Assessment: Patient presents with symptoms consistent with diagnosis of CTS, with conservative intervention. Patient's limitations or Problem List includes: Pain, Increased edema and Sensory disturbance of thebilateral hand which interferes with the patient's ability to perform Self Care Tasks (dressing), Work Tasks, Sleep Patterns, Recreational Activities, Lead Software Developer and Driving as compared to previous level [...] orthosis for night and day PRN Tuba it trainee for edema Next Visit: Passive nerve glides [...] limb documented in this encounter Care Teams Social Work Administrator Relationship Specialty Start Date End Date Lindsay Braxton MD PCP - General Family Practice 02/25/17 [address] [place] [address] Tayla Mondragon NP PCP - Assigned PCP 03/01/17 02/27/18 [facility] [address] [place] [address] documented as of this encounter
--- OUTSIDE RECORDS SUMMARY | 2022-02-14 10:47 | XMS_ITS | Clinical Summary ---
:1990 Author Organization [facility] [place] [address] Care Team Providers Name Role Phone Maggie Toribio MD Primary Care Provider Allergies No known active allergies Medications Medication Sig Dispensed Refills Start Date End Date Status levonorgestrel Inject 20 mcg 0 10/01/2016 Active intrauterine device intrauterine. (MIRENA) 20 mcg/24 hr (5 years) IUD venlafaxine (EFFEXOR XR) Take 150 mg by 0 10/06/2017 Active 150 mg Extended-Release mouth every capsule morning. Active Problems No known active problems Social History Tobacco Use Types Packs/Day Years Used Date Never Smoker Smokeless Tobacco: Never Used Tobacco Cessation: Counseling Given: Yes Alcohol Use Standard Drinks/Week Comments Yes 0 (1 standard drink = 0.6 oz pure alcoho l) occasional Alcohol Habits Answer Date Recorded How often do you have a drink containing alcohol? Not asked How many drinks containing alcohol do you have on a typical Not asked day when you are drinking? How often do you have six or more drinks on one occasion? No t asked Comment: occasional 01/28/2018 Sex Assigned at Date Recorded Not on file Obstetrics History Last Filed Vital Signs Vital Sign Reading Time Taken Comments Blood Pressure 124/81 01/28/2018 9:08 AM CDT Pulse 78 01/28/2018 9:08 AM CDT Temperature 36.5 ??C (97.7 ??F) 01/28/2018 9:08 AM CDT Respiratory Rate - - Oxygen Saturation 99% 01/28/2018 9:08 AM CDT Inhaled Oxygen Concentration - - Weight 81.6 kg (180 lb) 01/28/2018 9:08 AM CDT Height 168 cm (5' 6.14) 01/28/2018 9:08 AM CDT Body Mass Index 28.93 01/28/2018 9:08 AM CDT Plan of Treatment Health Maintenance Due Date Last Done Comments COVID-19 vaccine series (#1) 06/16/1991 Tdap 2001 Depression screening for age 12+ 2002 Hepatitis C screening for age 18-79 2008 Tetanus booster 2010 BMI (ht and wt on same day) for age 18+ 01/28/2019 01/29/20 18 Influenza for age 9-49 11/28/2021 Pap test for age 21-65 02/07/2022 02/07/2019 Results Not on filefrom Last 3 Months Insurance Payer Benefit Plan / Subscriber ID Effective Dates Phone Addre ss Type Group BLUE CROSS BLUE CROSS OF [id number] 2017-Present [address] [place] [phone] (Home) JANICE Grimaldo [phone] Care Teams Refinery Operator Helper Relationship Specialty Start Date End Date Maggie Toribio MD PCP - General Family Practice 10/25/14 [address] [place] [address]
--- OUTSIDE RECORDS SUMMARY | 2022-02-14 10:47 | XMS_ITS | Encounter Summary ---
:1990 Author Organization [place] Address [address] [place] [address] Care Team Providers Name Role Phone Lindsay Braxton MD Primary Care Provider [phone] Tayla Mondragon SEALER OPERATOR Unavailable Lindsay Braxton MD Unavailable Lindsay Braxton MD Unavailable Reason for Visit JOSE Physical Therapy - Closed Specialty Diagnoses / Procedures Referred By Contact Refer red To Contact Diagnoses Bilateral carpal tunnel syndrome Rodrigo Kirby DO [facility] [address] [facility] [address] [place] [address] Referral ID Status Reason Start Date Expiration Date Visits Requ ested Visits Authorized [id number] Closed 10/28/2017 03/29/2018 40 38 Encounter Details Date Type Department Care Team Description 12/02/2017 Therapy Visit [facility] Miko, Bilateral carpal tunnel syndrome (Primary Dx); Rehabilitation Services James aguilar, OTR Bilateral hand pain [facility] [place] [address] [facility] [address] [facility] [address] [place], [place] [address] [id number] Social History Tobacco Use Types Packs/Day Years [...] limb documented in this encounter Care Teams Senior Commercial Loan Officer Relationship Specialty Start Date End Date Lindsay Braxton MD PCP - General Family Practice 02/25/17 [address] [place] [address] Tayla Mondragon NP PCP - Assigned PCP 03/01/17 02/27/18 [facility] [address] [place] [address] Lindsay Braxton MD PCP - Assigned PCP 02/28/18 06/01/18 [address] [place] [address] Lindsay Braxton MD Assigned PCP 02/14/18 10/11/20 [address] [place] [address] documented as of this encounter
--- OUTSIDE RECORDS SUMMARY | 2022-02-14 10:47 | XMS_ITS | Encounter Summary ---
:1990 Author Organization [place] Address [address] [place] [address] Care Team Providers Name Role Phone Lindsay Braxton MD Primary Care Provider [phone] Tayla Mondragon SILO ERECTOR Unavailable Encounter Details Date Type Department Care Team Description 11/10/2017 E-Visit [facility] Lindsay Braxton (Primary Clinic Cullen Aguilar MD Dx) [address] [facility] [address] [place], [place] [address] [phone] Social History Tobacco Use Types Packs/Day Years [...] giddiness documented in this encounter Care Teams Wire Weaver Relationship Specialty Start Date End Date Lindsay Braxton MD PCP - General Family Practice 02/25/17 [address] [place] [address] Tayla Mondragon SILO ERECTOR PCP - Assigned PCP 03/01/17 02/27/18 [facility] [address] [place] [address] (work) documented as of this encounter
--- OUTSIDE RECORDS SUMMARY | 2022-02-14 10:47 | XMS_ITS | Encounter Summary ---
:1990 Author Organization [place] Address [address] [place] [address] Care Team Providers Name Role Phone Lindsay Braxton MD Primary Care Provider [phone] Tayla Mondragon FARMWORKER [employer] Unavailable Reason for Visit JOSE Physical Therapy - Closed Specialty Diagnoses / Procedures Referred By Contact Refer red To Contact Diagnoses Bilateral carpal tunnel syndrome Rodrigo Kirby DO [facility] [address] [address] Referral ID Status Reason Start Date Expiration Date Visits Requ ested Visits Authorized [id number] Closed 10/28/2017 03/29/2018 40 38 Encounter Details Date Type Department Care Team Description 11/18/2017 Therapy Visit [facility] Miko, Bilateral carpal tunnel syndrome (Primary Dx); Rehabilitation Services LIBERTY Jones Bilateral hand pain [facility] [address] [place], [place] [address] [address] [address] [place] [address] [phone] Social History Tobacco Use Types Packs/Day Years [...] Diagnosis Comme nts [facility] MANUAL THER Routine 11/18/2017 3:09 PM Bilateral carpal TECH,1+REGIONS,EA 15 MIN CDT tunnel syndrome Bilateral hand pain [facility] NEUROMUSCULAR Routine 11/18/2017 3:09 PM Bilateral carpal RE-EDUCATION CDT tunnel syndrome Bilateral hand pain [facility] THERAPEUTIC EXERCISES Routine 11/18/2017 3:09 PM Bilateral carpal CDT tunnel syndrome Bilateral hand pain documented in this encounter Visit Diagnoses Diagnosis Bilateral carpal tunnel syndrome - Prima ry Carpal tunnel syndrome Bilateral hand pain Pain in limb documented in this encounter Care Teams Welder Gas Tungsten Arc Relationship Specialty Start Date End Date Lindsay Braxton MD PCP - General Family Practice 02/25/17 [address] [place] [address] Tayla Mondragon NP PCP - Assigned PCP 03/01/17 02/27/18 [facility] [address] [place] [address] documented as of this encounter
--- OUTSIDE RECORDS SUMMARY | 2022-02-14 10:48 | XMS_ITS | Encounter Summary ---
:1990 Author Organization [facility] Address [address] [place] [address] Care Team Providers Name Role Phone Unavailable Primary Care Provider Unavailable Reason for Visit Reason Comments Other scratch to upper lip and nos e by a kitten at work today Work Comp Encounter Details Date Type Department Care Team Description 04/20/2014 Office Visit [facility] Hamilton Coffey, Yelena [place] te, initial Urgent Care Pablo SCOTT encounter (Primary Dx) [address] [address] [phone] Social History Tobacco Use Types Packs/Day Years Used Date Smoking Tobacco: Never Smokeless Tobacco: Never Alcohol Use Standard Drinks/Week Comments Not Asked 0 (1 standard drink = 0.6 oz pure alcoho l) Sex Assigned at Date Recorded Not on file documented as of this encounter Last Filed Vital Signs Vital Sign Reading Time Taken Comments Blood Pressure 110/70 04/20/2014 2:51 PM ADJUNCT INSTRUCTOR IN ECONOMICS Pulse - - Temperature 37.2 ??C (99 ??F) 04/20/2014 2:51 PM ADJUNCT INSTRUCTOR IN ECONOMICS Respiratory Rate - - Oxygen Saturation - - Inhaled Oxygen Concentration - - Weight 74.8 kg (165 lb) 04/20/2014 2:51 PM ADJUNCT INSTRUCTOR IN ECONOMICS Height 167.6 cm (5' 6) 04/20/2014 2:51 PM ADJUNCT INSTRUCTOR IN ECONOMICS Body Mass Index 26.63 04/20/2014 2:51 PM ADJUNCT INSTRUCTOR IN ECONOMICS documented in this encounter Progress Notes Hamilton [...] Follow up as needed See orders in [facility] NCT INSTRUCTOR IN ECONOMICS documented in this encounter Nursing Notes Kamla [...] completed using cuff size: doug Shah LPN NCT INSTRUCTOR IN ECONOMICS documented in this encounter Plan of Treatment Not on filedocumented as of this encounter Visit Diagnoses Diagnosis Cat bite, initial encounter - Primary documented in this encounter
--- OUTSIDE RECORDS SUMMARY | 2022-02-14 10:48 | XMS_ITS | Encounter Summary ---
:1990 Author Organization [place] Address [address] [place] [address] Care Team Providers Name Role Phone No Ref-Primary, Physician Primary Care Provider [phone] Reason for Visit Reason Onset Date Comments Hand Pain 02/06/2017 Encounter Details Date Type Department Care Team Description 02/06/2017 Telephone [facility] None Hand Pain [address] [place] [address] Social History Tobacco Use [...] through out the day. 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 Advised to be seen in clinic for this. Appt with Dr. SALTER at today at 8 am. Pt expressed understanding and acceptance of the plan. Pt had no further questions at this time. Advised can call back to clinic at any time with concerns. Clotilde Page, RN ASSOCIATE ATTORNEY documented in this encounter Plan of Treatment Not on filedocumented as of this encounter Visit Diagnoses Not on filedocumented in this encounter Care Teams Industrial Locomotive Operator Relationship Specialty Start Date End Date No Ref-Primary, Physician PCP - General 02/06/17 02/24/17 documented as of this encounter
--- OUTSIDE RECORDS SUMMARY | 2022-02-14 10:48 | XMS_ITS | Encounter Summary ---
:1990 Author Organization [place] Address [facility] [place] [address] Care Team Providers Name Role Phone Unavailable Primary Care Provider Unavailable Reason for Visit JOSE Occupational Therapy (Routine) - Closed Specialty Diagnoses / Procedures Referred By Contact Refer red To Contact Occupational Therapy Diagnoses >4, Hand injury, right, subsequent encounter / Tayla Mondragon NP @ [facility] Tayla Mondragon NP [facility] Procedures HAND INITIAL [facility] Therapy - [place] [address] [address] [place] [address] [address] [place] [address] Phone: Fax: Referral ID Status Reason Start Date Expiration Date Visits V isits Requested Authorized JOSE/HP/OT/HAND Closed 11/25/2016 03/29/2017 20 20 Encounter Details Date Type Department Care Team Description 12/05/2016 Therapy Visit [facility] Barbara Love, Pain o f finger of right hand; Rehabilitation Services OT Finger stiffness, right; [place] [facility] [address] [address] Un specified injury of right wrist, hand and finger(s), subsequent encounter Care [facility] [address] [address] [place], [place] [address] [address] [place], [place] 75[address] Social History Tobacco Use Types Packs/Day Years [...] Name Priority Date/Time Associated Diagnosis Comme nts [facility] MANUAL THER Routine 12/05/2016 12:00 PM Pain of finger of TECH,1+REGIONS,EA 15 MIN CDT right h and Finger stiffness, right Unspecified injury of right wrist, hand and finger(s), subsequent encounter [facility] NEUROMUSCULAR Routine 12/05/2016 12:00 PM [...]
--- OUTSIDE RECORDS SUMMARY | 2022-02-14 10:48 | XMS_ITS | Encounter Summary ---
:1990 Author Organization [place] Address [facility] [place] [address] Care Team Providers Name Role Phone Unavailable Primary Care Provider Unavailable Reason for Visit JOSE Occupational Therapy (Routine) - Closed Specialty Diagnoses / Procedures Referred By Contact Refer red To Contact Occupational Therapy Diagnoses >4, Hand injury, right, subsequent encounter / Tayla Mondragon NP @ [facility] Tayla Mondragon NP [facility] Procedures HAND INITIAL [facility] [place] Therapy - [place] [address] [address] [place] [address] [address] [place] [address] Phone: Fax: Referral ID Status Reason Start Date Expiration Date Visits V isits Requested Authorized JOSE/HP/OT/HAND Closed 11/25/2016 03/29/2017 20 20 Encounter Details Date Type Department Care Team Description 11/25/2016 Therapy Visit [facility] Barbara Love, Unspec ified injury of right wrist, hand and finger(s), subsequent encounter (Primary Dx); Rehabilitation Services OT Pain of finger of right hand; [place] [facility] [address] Arlen jaquez stiffness, [facility] [address] [address] [place], [place] [address] [address] [place], [place] [address] Social History Tobacco Use Types Packs/Day Years Used Date Smoking Tobacco: Never Smokeless Tobacco: Never Alcohol Use Standard Drinks/Week Comments Yes 0 (1 standard drink = 0.6 oz pure alcoho l) Sex Assigned at Date Recorded Not on file documented as of this encounter Progress Notes Barbara Love - 11/25/2016 2:30 PM CDT Hand Therapy [...] melatonin. 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 Rehab Potential: Excellent - Return to full activity, no limitations Patient will benefit from skilled Occupational Therapy to increase ROM, flexibility, bowl sander strength, pinch strength and coordination and decrease [...] Name Priority Date/Time Associated Diagnosis Comme nts [facility] MANUAL THER Routine 11/28/2016 8:48 AM Pain of finger of TECH,1+REGIONS,EA 15 MIN CDT right h and Finger stiffness, right Unspecified injury of right wrist, hand and finger(s), subsequent encounter [facility] THERAPEUTIC Routine 11/28/2016 8:48 AM Pain of [...]
--- OUTSIDE RECORDS SUMMARY | 2022-02-14 10:48 | XMS_ITS | Encounter Summary ---
:1990 Author Organization [facility] Address [address] [place] [address] Care Team Providers Name Role Phone Unavailable Primary Care Provider Unavailable Reason for Visit Reason Comments Cat Bite c/o cat bite on right 5th fi nger during work this morning. Cat is up to date on vaccination's. Work Comp Encounter Details Date Type Department Care Team Description 03/15/2015 Office Visit [facility] Hamilton Coffey, Cat bi te of hand, Urgent Care Pablo SCOTT right, initial [address] encounter (Primary Dx) [place] [address] [phone] Social History Tobacco Use Types Packs/Day Years Used Date Smoking Tobacco: Never Smokeless Tobacco: Never Alcohol Use Standard Drinks/Week Comments Not Asked 0 (1 standard drink = 0.6 oz pure alcoho l) Sex Assigned at Date Recorded Not on file documented as of this encounter Last Filed Vital Signs Vital Sign Reading Time Taken Comments Blood Pressure 130/76 03/15/2015 12:13 PM NURSING CARE PARTNER Pulse 57 03/15/2015 12:13 PM NURSING CARE PARTNER Temperature 36.7 ??C (98.1 ??F) 03/15/2015 12:13 PM NURSING CARE PARTNER Respiratory Rate - - Oxygen Saturation - - Inhaled Oxygen Concentration - - Weight 76.7 kg (169 lb) 03/15/2015 12:13 PM NURSING CARE PARTNER Height - - Body Mass Index 27.28 04/20/2014 2:51 PM NURSING CARE PARTNER documented in this encounter Progress Notes Hamilton [...] encounter S61.451A Multiple Vitamins- Minerals (MULTIVITAMIN PO) [place]-3 Fatty Acids (FISH OIL PO) amoxicillin-clavulanate (AUGMENTIN) 875-125 MG per tablet TD (PRESERVE FREE, AGE 7+) [10204.002] Td updated Work comp letter written for patient ING CARE PARTNER documented in this encounter Nursing Notes Jose [...] Jose Malik on 03/15/2015 at 12:48 PM. ING CARE PARTNER Jose Malik MA - 03/15/2015 12:14 PM [...] using cuff size regular A. ANNY Malik ING CARE PARTNER documented in this encounter Plan of Treatment Not on filedocumented as of this encounter Visit Diagnoses Diagnosis Cat bite of hand, right, initial encount er - Primary documented in this encounter
--- OUTSIDE RECORDS SUMMARY | 2022-02-14 10:48 | XMS_ITS | Encounter Summary ---
:1990 Author Organization [place] Address [address] [place] [address]. [place] [address] Care Team Providers Name Role Phone Unavailable Primary Care Provider Unavailable Encounter Details Date Type Department Care Team Description 10/01/2016 Radiant Appointment [facility] Lindsay Braxton Finger injury, Clinic Cullen Aguilar MD right, initial [address] [address] [facility] [place] [address] [phone] Social History Tobacco Use Types Packs/Day Years [...]
--- OUTSIDE RECORDS SUMMARY | 2022-02-14 10:48 | XMS_ITS | Encounter Summary ---
:1990 Author Organization [place] Address [address] [place] [address]. [place] [address] Care Team Providers Name Role Phone Unavailable Primary Care Provider Unavailable Reason for Referral Consultation - Closed Specialty Diagnoses / Procedures Referred By Contact Refer red To Contact Diagnoses Cystic acne Lindsay Braxton MD [facility] [address] [facility] [place] [address] [facility] [address] [place] [address] Phone: Fax: Referral ID Status Reason Start Date Expiration Date Visits Requ ested Visits Authorized [id number] Closed 01/02/2016 01/01/2017 1 1 Reason for Visit Reason Comments Physical Flu Shot Encounter Details Date Type Department Care Team Description 01/02/2016 Office Visit [facility] Lindsay Braxton for routine adult health examination without abnormal findings (Primary Dx); Clinic Cullen Aguilar MD Cystic acne [address] [facility] [address] [place] [id number] [phone] Social History Tobacco Use Types Packs/Day Years [...] little help Has well women physicals at [facility] Today's PHQ-2 Score: PHQ-2 (??1999 Pfizer) 01/02/2016 [...] LDL, TRIG, CHOLHDLRATIO, NHDL in the last 29265 hours. Reviewed orders with patient. Reviewed health maintenance and updated orders accordingly - Yes Mammo Decision Support: Mammogram not appropriate for this patient based on age. Last Mammo:No results found. History of abnormal Pap smear: NO - age 21-29 PAP every 3 years recommended All Histories reviewed and updated in [facility]. ROS: C: NEGATIVE for fever, chills, [...] reflected in patient instructions Lindsay Braxton MD [facility] Injectable Influenza Immunization Documentation 1. Is [...] the person to be vaccinated ever had Guillain-Mcdade syndrome? No Form completed by [facility] [...] Name Type Priority Associated Diagnoses Order [facility] DERMATOLOGY REFERRAL Referral Routine Cystic acne Ordered : 01/02/2016 documented as of this encounter Visit Diagnoses Diagnosis Encounter for routine adult health exami nation without abnormal findings - Primary Cystic acne Other acne documented in this encounter
--- OUTSIDE RECORDS SUMMARY | 2022-02-14 10:48 | XMS_ITS | Encounter Summary ---
:1990 Author Organization [place] Address [facility] [place] [address] Care Team Providers Name Role Phone Unavailable Primary Care Provider Unavailable Reason for Referral JOSE Physical Therapy - Closed Specialty Diagnoses / Procedures Referred By Contact Refer red To Contact Diagnoses Hand injury, right, subsequent encounter Tayla Mondragon, CCNP [facility] [address] [place] [address] [place] [address] Phone: [phone] Referral ID Status Reason Start Date Expiration Date Visits Requ ested Visits Authorized [id number] Closed 11/15/2016 11/15/2017 1 1 Reason for Visit Reason Comments Finger pinky finger rt hand x 3-4 weeks Encounter Details Date Type Department Care Team Description 11/15/2016 Office Visit [facility] Tayla Mondragon, Hand i njury, right, [facility] [place] CCNP subsequent encounter [id number] [facility] (Primary Dx) [place], [place] CENTER [address] [phone] [place], [place] [address] Social History Tobacco Use [...] in this encounter Progress Notes Tayla Mondragon CCNP - 11/15/2016 10:00 AM CDT SUBJECTIVE: Claudia [...] HAND, AND CHIROPRACTIC REFERRAL Tayla Mondragon NP [facility] documented in this encounter Nursing Notes Sara [...]
--- OUTSIDE RECORDS SUMMARY | 2022-02-14 10:48 | XMS_ITS | Encounter Summary ---
:1990 Author Organization [place] Address [facility] [place] [address] Care Team Providers Name Role Phone Unavailable Primary Care Provider Unavailable Reason for Visit JOSE Occupational Therapy (Routine) - Closed Specialty Diagnoses / Procedures Referred By Contact Refer red To Contact Occupational Therapy Diagnoses >4, Hand injury, right, subsequent encounter / Tayla Mondragon NP @ [facility] Tayla Mondragon NP [facility] Procedures HAND INITIAL [facility] - [place] [address] [address] [place] [address] [address] [place] [address] Phone: Fax: Referral ID Status Reason Start Date Expiration Date Visits V isits Requested Authorized JOSE/HP/OT/HAND Closed 11/25/2016 03/29/2017 20 20 Encounter Details Date Type Department Care Team Description 12/22/2016 Therapy Visit [facility] Barbara Love, Pain o f finger of right hand; Rehabilitation Services OT Finger stiffness, right; [facility] [id number] [address] Un specified injury of right wrist, hand and finger(s), subsequent encounter Care [facility] [address] [address] [place], [place] [address] [address] [place], [place] [id number] Social History Tobacco Use Types Packs/Day Years [...] goals are met to pt satisfaction. D/C [facility]. documented in this encounter Plan of Treatment Not on filedocumented as of this encounter Procedures Procedure Name Priority Date/Time Associated Diagnosis Comme nts [facility] MANUAL THER Routine 12/26/2016 10:15 AM Pain of finger of TECH,1+REGIONS,EA 15 MIN CDT right h and Finger stiffness, right Unspecified injury of right wrist, hand and finger(s), subsequent encounter [facility] NEUROMUSCULAR Routine 12/26/2016 10:15 AM [...]
--- OUTSIDE RECORDS SUMMARY | 2022-02-14 10:48 | XMS_ITS | Encounter Summary ---
:1990 Author Organization [place] Address [address] [place] [address]. [place] [address] Care Team Providers Name Role Phone Unavailable Primary Care Provider Unavailable Reason for Visit Reason Comments Musculoskeletal Problem Encounter Details Date Type Department Care Team Description 10/01/2016 Office Visit [facility] Lindsay Braxton Finger injury, right, Clinic Cullen Aguilar MD initial encounter [id number] [facility] [address] [facility] (Primary Dx) [place], [place] [address] [phone] Social History Tobacco Use Types Packs/Day Years [...] G/E 2 Views; Future Lindsay Braxton MD [facility] documented in this encounter Nursing Notes Vic Ortez, PHARMACY DISTRICT MANAGER - 10/01/2016 9:45 AM CDT Chief Complaint [...]
[2022-02-14 14:16] LABS: Cholesterol* 168 mg/dL (90-199); HDL Cholesterol* 76 mg/dL (>=50); LDL Cholesterol Calculated 83 mg/dL (<100); Triglycerides* 47 mg/dL (40-149)
[2022-02-14 14:37] LABS: Vitamin D 25 Hydroxy* 79 ng/mL (30-80)
== END 2022-02-14 10:38 | disposition home or self-care (01) ==
PROVIDERS: PCP Nurse Practitioner Family; Visit Provider Registered Nurse
DX: Z01.419 Encounter for gynecological examination (general) (routine) without abnormal findings (principal); R53.83 Other fatigue; L65.9 Nonscarring hair loss, unspecified; Z13.6 Encounter for screening for cardiovascular disorders
CPT/HCPCS: 80061; 82306; 84443